=== PATIENT | male | born 1945 | race Caucasian/White ===

== ENCOUNTER 2021-09-20 00:01 | Inpatient (IN) ==
[2021-09-20] MEDS ORDERED: fentaNYL citrate 100 MCG/2 ML VIAL ONE (00:19)
[2021-09-20] MEDS ORDERED: MIDAZOLAM HCL 1 MG/ML 2ML VIAL ONE ×2 (00:19→00:51)
[2021-09-20] MEDS ORDERED: niCARdipine HCL INJ 2.5 MG/ML 10 ML AMP ONE (00:19)
[2021-09-20] MEDS ORDERED: HEPARIN (PORCINE) 1000 UNIT/ML 10 ML (CATH LAB USE ONLY) ONE (00:19)
[2021-09-20] MEDS ORDERED: NITROGLYCERIN/D5W 100MCG/ML 20ML SYR ONE (00:20)
[2021-09-20] MEDS ORDERED: LIDOCAINE 1% LOCAL 20 ML VIAL ONE (00:27)
[2021-09-20 00:28] LABS: Hematocrit (blood only) 45.7 % (42-52); Hemoglobin 14.6 g/dL (14.0-18.0); Mean Corpuscular Hemoglobin 30.2 pg (25-34); Mean Corpuscular Hgb Conc 31.9 g/dL (32-36); Mean Corpuscular Volume 94.6 fL (80-100); Mean Platelet Volume 10.5 fL (7.4-10.4); Platelet Count 322 K/uL (130-400); RDW Coefficient of Variation 13.2 % (11.5-14.5); RDW Standard Deviation 45.6 fL (36.4-46.3); Red Blood Count 4.83 M/uL (4.7-6.1)
[2021-09-20] MEDS ORDERED: SODIUM CHLORIDE 0.9% 1000ML 1,000 ML IV SCH (00:30)
[2021-09-20] MEDS ORDERED: SODIUM BICARB 8.4% INJ 50 MEQ/50 ML SYR IV STA ×2 (00:30)
[2021-09-20] MEDS ORDERED: SODIUM BICARBONATE 8.4% INJ 50 MEQ/50 ML VIAL ONE (00:31)
[2021-09-20 00:45] LABS: ALC (manual) 4.48 K/uL (1.2-3.4); ANC (manual) 5.45 K/uL (1.4-6.5); Basophils # (manual) 0.29 K/uL (0-0.2); Basophils % (manual) 2.6 %; Eosinophils # (manual) 0.29 K/uL (0-0.5); Eosinophils % (manual) 2.6 %; Lymphocytes # (manual) 4.48 K/uL (1.2-3.4); Lymphocytes % (manual) 40.4 %; Metamyelocytes % (manual) 0.9 %; Monocytes # (manual) 0.29 K/uL (0.11-0.59); Monocytes % (manual) 2.6 %; Myelocytes % (manual) 1.8 %; Neutrophils # (manual) 5.45 K/uL (1.4-6.5); Neutrophils % (manual) 49.1 %; RBC Morphology Unremarkable
[2021-09-20] MEDS ORDERED: EPTIFIBATIDE 2 MG/ML 10 ML VIAL (CATH LAB USE ONLY) IV ONE (00:55)
[2021-09-20] MEDS ORDERED: EPTIFIBATIDE 0.75 MG/ML 75MG VIAL (CATH LAB USE ONLY) ONE (00:55)
[2021-09-20] MEDS ORDERED: AMIODARONE HCL INJ 50 MG/ML 3 ML VIAL (CATH LAB USE ONLY) ONE (00:58)
[2021-09-20] MEDS ORDERED: AMIODARONE 360MG / 200ML D5W (CATH LAB USE ONLY) ONE (01:00)
[2021-09-20] MEDS ORDERED: PHENYLEPHRINE HCL INJ 10 MG/ML VIAL (CATH LAB USE ONLY) ONE ×2 (01:04→01:22)
[2021-09-20] MEDS ORDERED: NOREPINEPHRINE BITARTRATE 1 MG/ML 4 ML VIAL (CATH LAB USE ONLY) ONE (01:04)
[2021-09-20 01:20] LABS: Alanine Aminotransferase 39 U/L (7-52); Albumin Globulin Ratio 1.7 (0.9-2); Albumin Level 3.7 gm/dl (3.4-5.0); Alkaline Phosphatase 92 U/L (34-104); Anion Gap 19 (3-11); Aspartate Aminotransferase 40 U/L (13-39); BUN Creatinine Ratio 8.6 (10-20); Bilirubin,Total 0.3 mg/dl (0.2-1.0); Blood Urea Nitrogen 13 mg/dl (6-23); Calcium 8.3 mg/dl (8.5-10.1); Carbon Dioxide 17 mmol/L (21-32); Chloride 104 mmol/L (98-107); Est GFR (African American) 51.9 ml/min; Est GFR (Non-African American) 44.8 ml/min; Globulin 2.2 gm/dl (2.5-4.0); Glucose 286 mg/dl (70-99(Fasting)); Magnesium 2.4 mg/dl (1.7-2.4); Sodium 140 mmol/L (136-145); Total Protein 5.9 gm/dl (6.0-8.3); Troponin I High Sensitivity 337.8 pg/ml (0-20)
[2021-09-20] MEDS ORDERED: ADENOSINE IV SOLN 3 MG/ML 2 ML VIAL IV ONE (01:45)
[2021-09-20] MEDS ORDERED: TICAGRELOR 90 MG TAB ONE (02:37)
[2021-09-20] MEDS ORDERED: EPTIFIBATIDE BOLUS/DRIP IV STA (02:48)
--- NOTE | 2021-09-20 03:13 | Emergency Department Note ---
History of Present Illness General Chief complaint: Heart Alert Stated complaint: POST CARDIAC ARREST, ROSC Time Seen by Provider: 09/20/21 00:16 Source: EMS Mode of arrival: EMS Limitations: altered mental status History of Present Illness Provider complaint: cardiac arrest This is a 75-year-old male brought in by EMS as a cardiac arrest with ROSC. Per EMS report, family stated patient went downstairs, and when he did not immediately return his went down to check on him and found him with agonal respirations and not responding. She immediately called 911. Police were on scene very quickly and started CPR and attached in the ED. 2 shocks were given by the ED. Upon EMS arrival, ACLS continued, patient intubated. Patient did have ROSC after additional medication including epi and amiodarone for what appeared to be both VT and V. fib on the monitor with los of pulses again. EMS did defibrillate him again, and he was given additional medications with subsequent ROSC. Arrival here Vignesh device in place, patient being bagged through an ET tube at the head of the bed, patient appeared to be normal sinus/sinus tachycardia and did have palpable pulses. Prior to arrival, EMS had called for command and sent EKGs for review. These were concerning for likely STEMI. On-call dye house hand was contacted by myself while EMS was in route and a heart alert was called given we had a shockable rhythm with ROSC. Pt seen during a time of high acuity and national emergency pandemic while wearing PPE. Home Medications Medication Instructions Recorded Confirmed Type Unobtainable 09/20/21 09/20/21 History Allergies Allergy/AdvReac Type Severity Reaction Status Date / Time No Known Allergies Allergy Unverified 09/20/21 13:26 Past Med/Surg History Social History Smoking Status: Unknown if ever smoked Hx Alcohol Use: No Hx Substance Use: No Preferred Language: Tajik Communication Ability: Unable Narrow Gauge Engineer Required: No Beliefs That Will Affect Care: None marital status: Current Living Situation: Spouse Current Living Situation Comment: [place] WITH SPOUSE Review of Systems A total of 10 systems reviewed and were otherwise negative All systems reviewed & are unremarkable except as noted in HPI & below Physical Exam Vital Signs Vital Signs - 24 hr 09/20/21 00:10 09/20/21 00:17 Pulse Rate 114 H 113 H Pulse Rhythm Irregular Pulse Strength Normal Respiratory Rate 28 H Respiratory Effort / Characteristics Mechanically Ventilated Blood Pressure 106/76 Blood Pressure Mean 86 Blood Pressure Position Lying Pulse Oximetry 99 98 Oxygen Delivery Method Mechanical Vent Fraction of Inspired Oxygen 100 Sepsis Recent Fever Within 48 Hours No Sepsis New/Unexplained Change in Mental Status No Sepsis Action Taken by Nursing No Action Required End-Tidal CO2 22 GENERAL: unwell appearing, being bagged by EMS HEAD: nc/at, no smith signs, no raccoon eyes EYE EXAM: normal conjunctiva, nipples midposition but reactive bilaterally OROPHARYNX: Mucous membranes dry, ET tube in place, no obvious blood or secretions in the oropharynx NECK: supple, no adenopathy LUNGS: Clear to auscultation. Normal chest wall mechanics, no w/r/r HEART: no murmurs, S1 normal and S2 normal, Vignesh device in place over the chest ABDOMEN: abdomen soft, non-tender, normo-active bowel sounds, no masses, no rebound or guarding. BACK: Back is symmetrical on inspection and there is no deformity, no midline tenderness, no CVA tenderness. SKIN: no rashes and no bruising UPPER EXTREMITIES: upper extremities are grossly normal. nml pulses b/l. LOWER EXTREMITIES: No pitting edema. nml pulses b/l. NEURO EXAM: GCS 3 Course Administered Medications Discontinued Medications Adenosine (Adenosine Iv Soln 3 Mg/Ml 2 Ml Vial) Confirm Administered Dose 6 mg IV .Splore ONE Stop: 09/20/21 01:46 Last Admin: 09/20/21 04:04 Dose: Not Given Documented by: [id number] Amiodarone HCl/Dextrose (Amiodarone 360mg / 200ml D5w (Processor Grain Use Only)) Confirm Administered Dose 360 mg .ROUTE .Splore ONE Stop: 09/20/21 01:01 Last Admin: 09/20/21 02:26 Dose: 360 mg Documented by: [id number] Amiodarone HCl/Dextrose (Amiodarone 360mg / 200ml D5w) Confirm Administered Dose 360 mg IV .Splore ONE Stop: 09/20/21 05:10 Last Admin: 09/20/21 05:49 Dose: Not Given Documented by: [id number] Amiodarone HCl (Amiodarone Hcl Inj 50 Mg/Ml 3 Ml Vial (Processor Grain Use Only)) Confirm Administered Dose 150 mg .ROUTE .STK-MED ONE Stop: 09/20/21 00:59 Last Admin: 09/20/21 04:04 Dose: Not Given Documented by: [id number] Aspirin (Aspirin 81 Mg Ectab) 81 mg PO [facility] Stop: 10/20/21 08:59 Last Admin: 09/20/21 07:56 Dose: Not Given Documented by: [id number] Aspirin (Aspirin 81 Mg Chew) 81 mg PO DAILY [facility] Stop: 10/20/21 12:59 Last Admin: 09/21/21 07:53 Dose: 81 mg Documented by: [id number] Admin: 09/20/21 12:24 Dose: 81 mg Documented by: [id number] Atorvastatin Calcium (Atorvastatin 40 Mg Tab) 40 mg PO [facility] Stop: 10/20/21 08:59 Last Admin: 09/21/21 08:11 Dose: 40 mg Documented by: [id number] Admin: 09/20/21 10:15 Dose: Not Given Documented by: [id number] Epinephrine HCl (Epinephrine Inj 1 Mg/Ml Amp) Confirm Administered Dose 4 mg .ROUTE .STK-MED ONE Stop: 09/21/21 17:07 Last Admin: 09/21/21 18:29 Dose: Not Given Documented by: [id number] Eptifibatide (Eptifibatide 2 Mg/Ml 10 Ml Vial (Processor Grain Use Only)) Confirm Administered Dose 40 mg IV .STK-MED ONE Stop: 09/20/21 00:56 Last Admin: 09/20/21 02:25 Dose: 14.6 ml Documented by: [id number] Eptifibatide (Eptifibatide 0.75 Mg/Ml 75mg Vial (Processor Grain Use Only)) Confirm Administered Dose 75 mg .ROUTE .STK-MED ONE Stop: 09/20/21 00:56 Last Admin: 09/20/21 02:26 Dose: 75 mg Documented by: [id number] Fentanyl Citrate (Fentanyl Citrate 100 Mcg/2 Ml Vial) Confirm Administered Dose 100 mcg .ROUTE .STK-MED ONE Stop: 09/20/21 00:20 Last Increment: 09/20/21 02:24 Dose: 75 mcg Documented by: [id number] Fentanyl Citrate (Fentanyl Bolus From Bag) 50 mcg IV Q60M PRN PRN Reason: Pain or Agitation Stop: 10/04/21 03:30 Last Admin: 09/20/21 12:49 Dose: 50 mcg Documented by: [id number] Fentanyl Citrate (Fentanyl Citrate 2,500 Mcg/250 Ml Bag) Confirm Administered Dose 2,500 mcg IV .STK-MED ONE Stop: 09/20/21 03:34 Last Admin: 09/20/21 04:06 Dose: 50 mcg Documented by: [id number] Cosigned by: [id number] Heparin Sodium (Porcine) (Heparin (Porcine) 1000 Unit/Ml 10 Ml (Processor Grain Use Only)) Confirm Administered Dose 10,000 units .ROUTE .STK-MED ONE Stop: 09/20/21 00:20 Last Admin: 09/20/21 02:24 Dose: 7,500 units Documented by: [id number] Heparin Sodium (Porcine) (Heparin Sod 5,000 Unit/0.5 Ml Vial) 5,000 units SQ Q8 [facility] Stop: 10/21/21 13:59 Last Admin: 09/21/21 14:28 Dose: 5,000 units Documented by: [id number] Heparin Sodium (Porcine) (Heparin (Porcine) 1000 Unit/Ml 10 Ml (Processor Grain Use Only)) Confirm Administered Dose 10,000 units .ROUTE .ST-MED ONE Stop: 09/21/21 16:35 Last Admin: 09/21/21 18:28 Dose: 10,000 units Documented by: [id number] Heparin Sodium (Porcine) (Heparin (Porcine) 1000 Unit/Ml 10 Ml (Processor Grain Use Only)) Confirm Administered Dose 10,000 units .ROUTE .STK-MED ONE Stop: 09/21/21 17:50 Last Admin: 09/21/21 18:30 Dose: 5,000 units Documented by: [id number] Heparin Sodium/Sodium Chloride (Heparin In Nss Infusion 1000 Unit/500 Ml (2 U/Ml) Bag) Confirm Administered Dose 3,000 units IV .STK-MED ONE Stop: 09/20/21 00:21 Last Admin: 09/20/21 04:03 Dose: Not Given Documented by: [id number] Sodium Chloride (Nss 1000ml) 1,000 mls @ 125 mls/hr IV .Q8H [facility] Stop: 10/20/21 00:29 Last Admin: 09/20/21 04:10 Dose: Not Given Documented by: [id number] Phenylephrine HCl 20 mg/ (Dextrose) 502 mls @ 60.24 mls/hr IV .Q8H20M [facility]; Protocol Stop: 10/20/21 02:00 Last Infusion: 09/20/21 11:39 Dose: 0 mcg/kg/min, 0 mls/hr Documented by: [id number] Infusion: 09/20/21 08:29 Dose: 2 mcg/kg/min, 241 mls/hr Documented by: [id number] Cosigned by: [id number] Admin: 09/20/21 08:29 Dose: 2 mcg/kg/min, 241 mls/hr Documented by: [id number] Cosigned by: [id number] Infusion: 09/20/21 07:13 Dose: 2 mcg/kg/min, 241 mls/hr Documented by: [id number] Cosigned by: [id number] Admin: 09/20/21 06:31 Dose: 2 mcg/kg/min, 241 mls/hr Documented by: [id number] Cosigned by: [id number] Infusion: 09/20/21 06:10 Dose: 2 mcg/kg/min, 241 mls/hr Documented by: [id number] Cosigned by: [id number] Admin: 09/20/21 04:05 Dose: 2 mcg/kg/min, 241 mls/hr Documented by: [id number] Cosigned by: [id number] Pantoprazole Sodium 40 mg/ (Syringe) 10 mls @ 5 mls/min IV DAILY@1100 [facility] Stop: 10/20/21 10:59 Last Admin: 09/21/21 14:28 Dose: 5 mls/min Documented by: [id number] Admin: 09/20/21 12:24 Dose: 5 mls/min Documented by: [id number] Norepinephrine Bitartrate (Levophed/D5w) 8 mg in 508 mls @ 152.4 mls/hr IV .Q3H20M [facility]; Protocol Stop: 10/20/21 03:14 Last Admin: 09/20/21 11:37 Dose: Not Given Documented by: [id number] Titration: 09/20/21 10:14 Dose: 0 mcg/kg/min, 0 mls/hr Documented by: [id number] Titration: 09/20/21 09:43 Dose: 0.5 mcg/kg/min, 152.4 mls/hr Documented by: [id number] Admin: 09/20/21 08:46 Dose: 0.6 mcg/kg/min, 182.9 mls/hr Documented by: [id number] Cosigned by: [id number] Titration: 09/20/21 08:42 Dose: 0.6 mcg/kg/min, 182.9 mls/hr Documented by: [id number] Cosigned by: [id number] Titration: 09/20/21 07:55 Dose: 0.6 mcg/kg/min, 182.9 mls/hr Documented by: [id number] Titration: 09/20/21 07:12 Dose: 0.5 mcg/kg/min, 152.4 mls/hr Documented by: [id number] Cosigned by: [id number] Titration: 09/20/21 05:26 Dose: 0.4 mcg/kg/min, 121.9 mls/hr Documented by: [id number] Admin: 09/20/21 04:05 Dose: 0.1 mcg/kg/min, 30.5 mls/hr Documented by: [id number] Cosigned by: [id number] Parenteral Electrolytes (Plasma-Lyte A) 1,000 mls @ 125 mls/hr IV .Q8H [facility] Stop: 10/20/21 03:29 Last Infusion: 09/20/21 08:33 Dose: 0 mls/hr Documented by: [id number] Infusion: 09/20/21 06:36 Dose: 0 mls/hr Documented by: [id number] Admin: 09/20/21 04:06 Dose: 125 mls/hr Documented by: [id number] Midazolam HCl (Versed) 125 mg in 250 mls @ 0 mls/hr IV .Q0M [facility]; Protocol Stop: 10/20/21 03:44 Last Titration: 09/21/21 11:48 Dose: 0 mg/hr, 0 mls/hr Documented by: [id number] Cosigned by: [id number] Titration: 09/21/21 09:12 Dose: 0 mg/hr, 0 mls/hr Documented by: [id number] Cosigned by: [id number] Titration: 09/21/21 07:12 Dose: 2 mg/hr, 4 mls/hr Documented by: [id number] Cosigned by: [id number] Titration: 09/20/21 19:07 Dose: 2 mg/hr, 4 mls/hr Documented by: [id number] Cosigned by: [id number] Titration: 09/20/21 09:45 Dose: 2 mg/hr, 4 mls/hr Documented by: [id number] Cosigned by: [id number] Titration: 09/20/21 07:59 Dose: 4 mg/hr, 8 mls/hr Documented by: [id number] Cosigned by: [id number] Titration: 09/20/21 07:14 Dose: 2 mg/hr, 4 mls/hr Documented by: [id number] Cosigned by: [id number] Admin: 09/20/21 04:08 Dose: 2 mg/hr, 4 mls/hr Documented by: [id number] Cosigned by: [id number] Fentanyl Citrate (Fentanyl Citrate) 2,500 mcg in 250 mls @ 0 mls/hr IV .Q0M [facility]; Protocol Stop: 10/04/21 03:44 Last Titration: 09/21/21 11:47 Dose: 0 mcg/hr, 0 mls/hr Documented by: [id number] Cosigned by: [id number] Titration: 09/21/21 09:11 Dose: 0 mcg/hr, 0 mls/hr Documented by: [id number] Cosigned by: [id number] Titration: 09/21/21 07:12 Dose: 100 mcg/hr, 10 mls/hr Documented by: [id number] Cosigned by: [id number] Admin: 09/21/21 00:23 Dose: 100 mcg/hr, 10 mls/hr Documented by: [id number] Cosigned by: [id number] Titration: 09/21/21 00:23 Dose: 100 mcg/hr, 10 mls/hr Documented by: [id number] Cosigned by: [id number] Titration: 09/20/21 19:07 Dose: 100 mcg/hr, 10 mls/hr Documented by: [id number] Cosigned by: [id number] Titration: 09/20/21 07:13 Dose: 100 mcg/hr, 10 mls/hr Documented by: [id number] Cosigned by: [id number] Titration: 09/20/21 05:26 Dose: 100 mcg/hr, 10 mls/hr Documented by: [id number] Cosigned by: [id number] Admin: 09/20/21 04:08 Dose: 50 mcg/hr, 5 mls/hr Documented by: [id number] Cosigned by: [id number] Eptifibatide (Integrilin) 75 mg in 100 mls @ 12.256 mls/hr IV .Q8H10M [facility]; Protocol Stop: 09/20/21 10:30 Last Infusion: 09/20/21 10:20 Dose: 0 mcg/kg/min, 0 mls/hr Documented by: [id number] Cosigned by: [id number] Infusion: 09/20/21 07:14 Dose: 2.01 mcg/kg/min, 12.3 mls/hr Documented by: [id number] Cosigned by: [id number] Admin: 09/20/21 05:49 Dose: 2 mcg/kg/min, 12.3 mls/hr Documented by: [id number] Cosigned by: [id number] Insulin Human Regular 250 (units/ Sodium Chloride) 250 mls @ 2 mls/hr IV .Q24H [facility]; Protocol Stop: 10/20/21 05:14 Last Titration: 09/21/21 11:15 Dose: 0 units/hr, 0 mls/hr Documented by: [id number] Cosigned by: [id number] Titration: 09/21/21 07:12 Dose: 2 units/hr, 2 mls/hr Documented by: [id number] Cosigned by: [id number] Admin: 09/21/21 06:13 Dose: 2 units/hr, 2 mls/hr Documented by: [id number] Cosigned by: [id number] Titration: 09/21/21 06:13 Dose: 2 units/hr, 2 mls/hr Documented by: [id number] Cosigned by: [id number] Titration: 09/21/21 05:00 Dose: 2 units/hr, 2 mls/hr Documented by: [id number] Cosigned by: [id number] Titration: 09/21/21 04:00 Dose: 2 units/hr, 2 mls/hr Documented by: [id number] Cosigned by: [id number] Titration: 09/21/21 02:58 Dose: 2 units/hr, 2 mls/hr Documented by: [id number] Cosigned by: [id number] Titration: 09/21/21 01:45 Dose: 0 units/hr, 0 mls/hr Documented by: [id number] Cosigned by: [id number] Titration: 09/21/21 01:10 Dose: 0 units/hr, 0 mls/hr Documented by: [id number] Cosigned by: [id number] Titration: 09/20/21 23:59 Dose: 2.6 units/hr, 2.6 mls/hr Documented by: [id number] Cosigned by: [id number] Titration: 09/20/21 23:00 Dose: 3.3 units/hr, 3.3 mls/hr Documented by: [id number] Cosigned by: [id number] Titration: 09/20/21 22:11 Dose: 3.3 units/hr, 3.3 mls/hr Documented by: [id number] Cosigned by: [id number] Titration: 09/20/21 21:12 Dose: 4.1 units/hr, 4.1 mls/hr Documented by: [id number] Cosigned by: [id number] Titration: 09/20/21 20:12 Dose: 3.4 units/hr, 3.4 mls/hr Documented by: [id number] Cosigned by: [id number] Titration: 09/20/21 19:07 Dose: 0 units/hr, 0 mls/hr Documented by: [id number] Cosigned by: [id number] Titration: 09/20/21 16:00 Dose: 0 units/hr, 0 mls/hr Documented by: [id number] Cosigned by: [id number] Titration: 09/20/21 15:00 Dose: 5.7 units/hr, 5.7 mls/hr Documented by: [id number] Cosigned by: [id number] Titration: 09/20/21 14:02 Dose: 9.5 units/hr, 9.5 mls/hr Documented by: [id number] Cosigned by: [id number] Titration: 09/20/21 13:00 Dose: 9.5 units/hr, 9.5 mls/hr Documented by: [id number] Cosigned by: [id number] Titration: 09/20/21 12:00 Dose: 9.5 units/hr, 9.5 mls/hr Documented by: [id number] Cosigned by: [id number] Titration: 09/20/21 11:00 Dose: 9.5 units/hr, 9.5 mls/hr Documented by: [id number] Cosigned by: [id number] Titration: 09/20/21 10:00 Dose: 7.9 units/hr, 7.9 mls/hr Documented by: [id number] Cosigned by: [id number] Titration: 09/20/21 09:00 Dose: 6.6 units/hr, 6.6 mls/hr Documented by: [id number] Cosigned by: [id number] Titration: 09/20/21 07:57 Dose: 4.7 units/hr, 4.7 mls/hr Documented by: [id number] Cosigned by: [id number] Titration: 09/20/21 07:13 Dose: 3.9 units/hr, 3.9 mls/hr Documented by: [id number] Cosigned by: [id number] Titration: 09/20/21 06:45 Dose: 3.9 units/hr, 3.9 mls/hr Documented by: [id number] Cosigned by: [id number] Admin: 09/20/21 05:49 Dose: 2.8 units/hr, 2.8 mls/hr Documented by: [id number] Cosigned by: [id number] Amiodarone HCl/Dextrose (Nexterone / D5w) 360 mg in 200 mls @ 33.333 mls/hr IV ONE ONE; Protocol Stop: 09/20/21 11:07 Last Infusion: 09/20/21 11:38 Dose: 0 mg/min, 0 mls/hr Documented by: [id number] Cosigned by: [id number] Admin: 09/20/21 08:33 Dose: 1 mg/min, 33.3 mls/hr Documented by: [id number] Cosigned by: [id number] Calcium Chloride 1,000 mg/ (Dextrose) 60 mls @ 240 mls/hr IV 0530 ONE Stop: 09/20/21 05:44 Last Infusion: 09/20/21 06:31 Dose: 0 mls/hr Documented by: [id number] Admin: 09/20/21 05:50 Dose: 240 mls/hr Documented by: [id number] Potassium Acetate () 20 meq in 110 mls @ 55 mls/hr IV Q2H [facility] Stop: 09/20/21 09:44 Last Infusion: 09/20/21 11:39 Dose: 0 mls/hr Documented by: [id number] Admin: 09/20/21 07:59 Dose: 55 mls/hr Documented by: [id number] Infusion: 09/20/21 07:55 Dose: 0 mls/hr Documented by: [id number] Admin: 09/20/21 05:50 Dose: 55 mls/hr Documented by: [id number] Insulin Human Regular 3 units/ (Syringe) 3 mls @ 0 mls/min IV 0545 ONE Stop: 09/20/21 05:46 Last Admin: 09/20/21 05:50 Dose: 1 mls/min Documented by: [id number] Cosigned by: [id number] Sodium Bicarbonate 150 meq/Potassium Acetate 20 meq/Sterile Water 1,160 mls @ 125 mls/hr IV .Q9H17M [facility] Stop: 10/20/21 05:29 Last Admin: 09/20/21 16:36 Dose: Not Given Documented by: [id number] Infusion: 09/20/21 15:14 Dose: 0 mls/hr Documented by: [id number] Admin: 09/20/21 06:19 Dose: 125 mls/hr Documented by: [id number] Amiodarone HCl/Dextrose (Nexterone / D5w) 360 mg in 200 mls @ 16.667 mls/hr IV .Q12H [facility] Stop: 10/20/21 06:29 Last Infusion: 09/21/21 11:47 Dose: 0 mg/min, 0 mls/hr Documented by: [id number] Cosigned by: [id number] Infusion: 09/21/21 07:12 Dose: 0.5 mg/min, 16.7 mls/hr Documented by: [id number] Cosigned by: [id number] Admin: 09/21/21 06:14 Dose: 0.5 mg/min, 16.7 mls/hr Documented by: [id number] Cosigned by: [id number] Infusion: 09/21/21 06:14 Dose: 0.5 mg/min, 16.7 mls/hr Documented by: [id number] Cosigned by: [id number] Admin: 09/20/21 18:15 Dose: 0.5 mg/min, 16.7 mls/hr Documented by: [id number] Cosigned by: [id number] Infusion: 09/20/21 18:15 Dose: 0.5 mg/min, 16.7 mls/hr Documented by: [id number] Cosigned by: [id number] Admin: 09/20/21 06:31 Dose: 0.5 mg/min, 16.7 mls/hr Documented by: [id number] Cosigned by: [id number] Potassium Acetate 40 meq/ (Sodium Chloride) 120 mls @ 80 mls/hr IV ONE ONE Stop: 09/20/21 11:29 Last Infusion: 09/20/21 15:27 Dose: 0 mls/hr Documented by: [id number] Admin: 09/20/21 10:15 Dose: 80 mls/hr Documented by: [id number] Phenylephrine HCl 100 mg/ (Sodium Chloride) 250 mls @ 69.6 mls/hr IV .Q3H36M [facility]; Protocol Stop: 10/20/21 02:00 Last Infusion: 09/21/21 21:06 Dose: 5.8 mcg/kg/min, 69.6 mls/hr Documented by: [id number] Admin: 09/21/21 20:40 Dose: 6 mcg/kg/min, 72 mls/hr Documented by: [id number] Cosigned by: [id number] Infusion: 09/21/21 20:40 Dose: 5 mcg/kg/min, 60 mls/hr Documented by: [id number] Cosigned by: [id number] Infusion: 09/21/21 20:23 Dose: 5 mcg/kg/min, 60 mls/hr Documented by: [id number] Infusion: 09/21/21 20:10 Dose: 1 mcg/kg/min, 12 mls/hr Documented by: [id number] Infusion: 09/21/21 19:50 Dose: 0 mcg/kg/min, 0 mls/hr Documented by: [id number] Infusion: 09/21/21 19:37 Dose: 1 mcg/kg/min, 12 mls/hr Documented by: [id number] Infusion: 09/21/21 19:30 Dose: 3 mcg/kg/min, 36 mls/hr Documented by: [id number] Cosigned by: [id number] Admin: 09/21/21 16:52 Dose: 7 mcg/kg/min, 84 mls/hr Documented by: [id number] Cosigned by: [id number] Infusion: 09/21/21 16:14 Dose: 7 mcg/kg/min, 84 mls/hr Documented by: [id number] Cosigned by: [id number] Admin: 09/21/21 13:15 Dose: 7 mcg/kg/min, 84 mls/hr Documented by: [id number] Cosigned by: [id number] Infusion: 09/21/21 13:05 Dose: 6 mcg/kg/min, 72 mls/hr Documented by: [id number] Cosigned by: [id number] Infusion: 09/21/21 11:45 Dose: 6 mcg/kg/min, 72 mls/hr Documented by: [id number] Admin: 09/21/21 09:11 Dose: 5 mcg/kg/min, 60 mls/hr Documented by: [id number] Cosigned by: [id number] Infusion: 09/21/21 08:56 Dose: 5 mcg/kg/min, 60 mls/hr Documented by: [id number] Cosigned by: [id number] Infusion: 09/21/21 07:51 Dose: 5 mcg/kg/min, 60 mls/hr Documented by: [id number] Infusion: 09/21/21 07:12 Dose: 6 mcg/kg/min, 72 mls/hr Documented by: [id number] Cosigned by: [id number] Admin: 09/21/21 06:38 Dose: Not Given Documented by: [id number] Admin: 09/21/21 05:16 Dose: 6 mcg/kg/min, 72 mls/hr Documented by: [id number] Cosigned by: [id number] Infusion: 09/21/21 03:58 Dose: 6 mcg/kg/min, 72 mls/hr Documented by: [id number] Cosigned by: [id number] Admin: 09/21/21 03:39 Dose: Not Given Documented by: [id number] Admin: 09/21/21 03:39 Dose: Not Given Documented by: [id number] Admin: 09/21/21 03:38 Dose: Not Given Documented by: [id number] Infusion: 09/21/21 02:54 Dose: 6 mcg/kg/min, 72 mls/hr Documented by: [id number] Admin: 09/21/21 02:15 Dose: Not Given Documented by: [id number] Admin: 09/21/21 02:15 Dose: Not Given Documented by: [id number] Admin: 09/21/21 02:15 Dose: Not Given Documented by: [id number] Infusion: 09/21/21 02:09 Dose: 5.8 mcg/kg/min, 69.6 mls/hr Documented by: [id number] Admin: 09/21/21 01:20 Dose: Not Given Documented by: [id number] Admin: 09/21/21 01:20 Dose: Not Given Documented by: [id number] Admin: 09/21/21 01:20 Dose: Not Given Documented by: [id number] Infusion: 09/21/21 01:18 Dose: 5.6 mcg/kg/min, 67.2 mls/hr Documented by: [id number] Infusion: 09/21/21 00:45 Dose: 5.8 mcg/kg/min, 69.6 mls/hr Documented by: [id number] Admin: 09/21/21 00:23 Dose: 6 mcg/kg/min, 72 mls/hr Documented by: [id number] Cosigned by: [id number] Infusion: 09/21/21 00:23 Dose: 6 mcg/kg/min, 72 mls/hr Documented by: [id number] Cosigned by: [id number] Admin: 09/20/21 22:12 Dose: 6 mcg/kg/min, 72 mls/hr Documented by: [id number] Cosigned by: [id number] Infusion: 09/20/21 21:03 Dose: 6 mcg/kg/min, 72 mls/hr Documented by: [id number] Cosigned by: [id number] Infusion: 09/20/21 19:07 Dose: 6 mcg/kg/min, 72 mls/hr Documented by: [id number] Cosigned by: [id number] Admin: 09/20/21 17:34 Dose: 6 mcg/kg/min, 72 mls/hr Documented by: [id number] Cosigned by: [id number] Infusion: 09/20/21 17:30 Dose: 6 mcg/kg/min, 72 mls/hr Documented by: [id number] Cosigned by: [id number] Admin: 09/20/21 14:01 Dose: 6 mcg/kg/min, 72 mls/hr Documented by: [id number] Cosigned by: [id number] Infusion: 09/20/21 14:01 Dose: 6 mcg/kg/min, 72 mls/hr Documented by: [id number] Cosigned by: [id number] Infusion: 09/20/21 11:00 Dose: 6 mcg/kg/min, 72 mls/hr Documented by: [id number] Admin: 09/20/21 10:46 Dose: 2 mcg/kg/min, 24 mls/hr Documented by: [id number] Cosigned by: [id number] Norepinephrine Bitartrate (Levophed/D5w) 32 mg in 250 mls @ 26.25 mls/hr IV .Q9H32M [facility]; Protocol Stop: 10/20/21 03:14 Last Titration: 09/21/21 19:30 Dose: 0.7 mcg/kg/min, 26.3 mls/hr Documented by: [id number] Cosigned by: [id number] Titration: 09/21/21 19:05 Dose: 0.7 mcg/kg/min, 26.3 mls/hr Documented by: [id number] Cosigned by: [id number] Admin: 09/21/21 19:05 Dose: 0.7 mcg/kg/min, 26.3 mls/hr Documented by: [id number] Cosigned by: [id number] Titration: 09/21/21 13:15 Dose: 0.7 mcg/kg/min, 26.3 mls/hr Documented by: [id number] Titration: 09/21/21 07:12 Dose: 0.3 mcg/kg/min, 11.3 mls/hr Documented by: [id number] Cosigned by: [id number] Admin: 09/21/21 05:16 Dose: 0.3 mcg/kg/min, 11.3 mls/hr Documented by: [id number] Cosigned by: [id number] Titration: 09/21/21 05:16 Dose: 0.3 mcg/kg/min, 11.3 mls/hr Documented by: [id number] Cosigned by: [id number] Titration: 09/20/21 19:07 Dose: 0.3 mcg/kg/min, 11.3 mls/hr Documented by: [id number] Cosigned by: [id number] Titration: 09/20/21 18:12 Dose: 0.3 mcg/kg/min, 11.3 mls/hr Documented by: [id number] Titration: 09/20/21 17:18 Dose: 0.25 mcg/kg/min, 9.4 mls/hr Documented by: [id number] Titration: 09/20/21 13:58 Dose: 0.3 mcg/kg/min, 11.3 mls/hr Documented by: [id number] Titration: 09/20/21 12:48 Dose: 0.2 mcg/kg/min, 7.5 mls/hr Documented by: [id number] Titration: 09/20/21 12:22 Dose: 0.4 mcg/kg/min, 15 mls/hr Documented by: [id number] Admin: 09/20/21 10:47 Dose: 0.6 mcg/kg/min, 22.5 mls/hr Documented by: [id number] Cosigned by: [id number] Vasopressin 20 units/ Sodium (Chloride) 101 mls @ 12.12 mls/hr IV .[id number] NICOLE Stop: 10/20/21 11:44 Last Admin: 09/21/21 20:10 Dose: 0.04 unit/min, 12.1 mls/hr Documented by: [id number] Cosigned by: [id number] Infusion: 09/21/21 20:06 Dose: 0.04 unit/min, 12.1 mls/hr Documented by: [id number] Cosigned by: [id number] Infusion: 09/21/21 19:30 Dose: 0.04 unit/min, 12.1 mls/hr Documented by: [id number] Cosigned by: [id number] Admin: 09/21/21 11:45 Dose: 0.04 unit/min, 12.1 mls/hr Documented by: [id number] Cosigned by: [id number] Infusion: 09/21/21 11:17 Dose: 0.04 unit/min, 12.1 mls/hr Documented by: [id number] Cosigned by: [id number] Infusion: 09/21/21 07:12 Dose: 0.04 unit/min, 12.1 mls/hr Documented by: [id number] Cosigned by: [id number] Admin: 09/21/21 02:56 Dose: 0.04 unit/min, 12.1 mls/hr Documented by: [id number] Cosigned by: [id number] Infusion: 09/21/21 02:56 Dose: 0.04 unit/min, 12.1 mls/hr Documented by: [id number] Cosigned by: [id number] Admin: 09/20/21 19:39 Dose: 0.04 unit/min, 12.1 mls/hr Documented by: [id number] Cosigned by: [id number] Admin: 09/20/21 15:26 Dose: Not Given Documented by: [id number] Magnesium Sulfate/Dextrose (Magnesium Sulfate / D5w) 1 gm in 100 mls @ 50 mls/hr IV Q2H NICOLE Stop: 09/20/21 21:14 Last Infusion: 09/20/21 22:52 Dose: 0 mls/hr Documented by: [id number] Admin: 09/20/21 20:52 Dose: 50 mls/hr Documented by: [id number] Infusion: 09/20/21 20:38 Dose: 50 mls/hr Documented by: [id number] Admin: 09/20/21 18:38 Dose: 50 mls/hr Documented by: [id number] Infusion: 09/20/21 18:38 Dose: 50 mls/hr Documented by: [id number] Admin: 09/20/21 16:42 Dose: 50 mls/hr Documented by: [id number] Calcium Gluconate 1,000 mg/ (Dextrose) 60 mls @ 240 mls/hr IV NOW ONE Stop: 09/20/21 15:29 Last Infusion: 09/20/21 16:37 Dose: 0 mls/hr Documented by: [id number] Admin: 09/20/21 16:08 Dose: 240 mls/hr Documented by: [id number] Potassium Acetate 20 meq/ (Sodium Chloride) 110 mls @ 55 mls/hr IV Q2H [facility], [facility] Stop: 09/20/21 19:44 Last Infusion: 09/20/21 20:14 Dose: 0 mls/hr Documented by: [id number] Admin: 09/20/21 18:14 Dose: 55 mls/hr Documented by: [id number] Infusion: 09/20/21 18:06 Dose: 55 mls/hr Documented by: [id number] Admin: 09/20/21 16:06 Dose: 55 mls/hr Documented by: [id number] Calcium Chloride 1,000 mg/ (Dextrose) 60 mls @ 240 mls/hr IV NOW STA Stop: 09/21/21 00:17 Last Infusion: 09/21/21 00:38 Dose: 0 mls/hr Documented by: [id number] Admin: 09/21/21 00:23 Dose: 240 mls/hr Documented by: [id number] Insulin Human Regular 250 (units/ Sodium Chloride) 250 mls @ 8.5 mls/hr IV .Q24H [facility] Stop: 10/21/21 17:14 Last Admin: 09/21/21 19:33 Dose: Not Given Documented by: [id number] Cosigned by: [id number] Insulin Human Regular 10 units (/ Syringe) 10 mls @ 30 mls/min IV NOW ONE Stop: 09/21/21 17:31 Last Admin: 09/21/21 18:30 Dose: 30 mls/min Documented by: [id number] Cosigned by: [id number] Dobutamine HCl/Dextrose (Dobutamine / D5w) 500 mg in 250 mls @ 12.75 mls/hr IV .[id number] [facility]; Protocol Stop: 10/21/21 19:29 Last Titration: 09/21/21 20:51 Dose: 0 mcg/kg/min, 0 mls/hr Documented by: [id number] Cosigned by: [id number] Admin: 09/21/21 20:00 Dose: 5 mcg/kg/min, 12.8 mls/hr Documented by: [id number] Cosigned by: [id number] Epinephrine HCl () 4 mg in 254 mls @ 6.477 mls/hr IV .Q24H [facility]; Protocol Stop: 10/21/21 20:29 Last Titration: 09/21/21 21:07 Dose: 0.05 mcg/kg/min, 16.2 mls/hr Documented by: [id number] Titration: 09/21/21 20:51 Dose: 0.04 mcg/kg/min, 13 mls/hr Documented by: [id number] Admin: 09/21/21 20:40 Dose: 0.02 mcg/kg/min, 6.5 mls/hr Documented by: [id number] Cosigned by: [id number] Calcium Chloride 1,000 mg/ (Dextrose) 60 mls @ 240 mls/hr IV NOW STA Stop: 09/21/21 20:34 Last Admin: 09/21/21 20:42 Dose: 240 mls/hr Documented by: [id number] Insulin Aspart (Insulin Aspart Per Unit) 0 units SC ACHS [facility] Stop: 10/20/21 07:29 Last Admin: 09/21/21 11:46 Dose: Not Given Documented by: [id number] Cosigned by: [id number] Admin: 09/21/21 07:51 Dose: Not Given Documented by: [id number] Cosigned by: [id number] Admin: 09/20/21 21:21 Dose: Not Given Documented by: [id number] Admin: 09/20/21 16:44 Dose: Not Given Documented by: [id number] Cosigned by: [id number] Admin: 09/20/21 10:48 Dose: Not Given Documented by: [id number] Cosigned by: [id number] Admin: 09/20/21 07:55 Dose: Not Given Documented by: [id number] Cosigned by: [id number] Insulin Aspart (Insulin Aspart Per Unit) 0 units SC Q4 [facility] Stop: 10/21/21 15:59 Last Admin: 09/21/21 16:58 Dose: Not Given Documented by: [id number] Cosigned by: [id number] Lidocaine HCl (Lidocaine 1% Local 20 Ml Vial) Confirm Administered Dose 20 ml .ROUTE .STK-MED ONE Stop: 09/20/21 00:28 Last Admin: 09/20/21 04:03 Dose: Not Given Documented by: [id number] Meperidine HCl (Meperidine Hcl 25 Mg/Ml Carp/Vial) 25 mg IV Q6H PRN PRN Reason: Shivering Stop: 10/04/21 16:16 Last Admin: 09/20/21 16:43 Dose: 25 mg Documented by: [id number] Midazolam HCl (Midazolam Hcl 1 Mg/Ml 2ml Vial) Confirm Administered Dose 2 mg .ROUTE .STK-MED ONE Stop: 09/20/21 00:20 Last Admin: 09/20/21 02:25 Dose: 2 mg Documented by: [id number] Midazolam HCl (Midazolam Hcl 1 Mg/Ml 2ml Vial) Confirm Administered Dose 2 mg .ROUTE .STK-MED ONE Stop: 09/20/21 00:52 Last Increment: 09/20/21 02:25 Dose: 1 mg Documented by: [id number] Midazolam HCl (Midazolam Bolus From Bag) 2 mg IV Q60M PRN PRN Reason: Sedation Stop: 10/20/21 03:30 Last Admin: 09/20/21 12:49 Dose: 2 mg Documented by: [id number] Midazolam HCl (Midazolam Hcl 125mg/250ml D5w) Confirm Administered Dose 125 mg .ROUTE .STK-MED ONE Stop: 09/20/21 03:34 Last Admin: 09/20/21 04:07 Dose: 2 mg Documented by: [id number] Cosigned by: [id number] Miscellaneous (Eptifibatide (Integrilin) Infusion Stop Order) 1 ea N/A 1030 ONE Stop: 09/20/21 10:31 Last Admin: 09/20/21 10:15 Dose: 1 ea Documented by: [id number] Nicardipine HCl (Nicardipine Hcl Inj 2.5 Mg/Ml 10 Ml Amp) Confirm Administered Dose 25 mg .ROUTE .STK-MED ONE Stop: 09/20/21 00:20 Last Admin: 09/20/21 04:02 Dose: Not Given Documented by: [id number] Nicardipine HCl (Nicardipine Hcl Inj 2.5 Mg/Ml 10 Ml Amp) Confirm Administered Dose 25 mg .ROUTE .STK-MED ONE Stop: 09/21/21 16:35 Last Admin: 09/21/21 18:29 Dose: Not Given Documented by: [id number] Nitroglycerin/Dextrose (Nitroglycerin/D5w 100mcg/Ml 20ml Syr) Confirm Administered Dose 2,000 mcg .ROUTE .STK-MED ONE Stop: 09/20/21 00:21 Last Admin: 09/20/21 04:03 Dose: Not Given Documented by: [id number] Nitroglycerin/Dextrose (Nitroglycerin/D5w 100mcg/Ml 20ml Syr) Confirm Administered Dose 2,000 mcg .ROUTE .STK-MED ONE Stop: 09/21/21 16:35 Last Admin: 09/21/21 18:29 Dose: Not Given Documented by: [id number] Norepinephrine Bitartrate (Norepinephrine Bitartrate 1 Mg/Ml 4 Ml Vial ([facility] Use Only)) Confirm Administered Dose 8 mg .ROUTE .STK-MED ONE Stop: 09/20/21 01:05 Last Admin: 09/20/21 02:26 Dose: 8 mg Documented by: [id number] Perflutren Lipid Microsphere (Perflutren Lipid Microsphere (Definity)) 2 ml IV ONCE ONE Stop: 09/20/21 09:17 Last Admin: 09/20/21 09:17 Dose: 2 ml Documented by: [id number] Phenylephrine HCl (Phenylephrine Hcl Inj 10 Mg/Ml Vial ([employer] Use Only)) Confirm Administered Dose 10 mg .ROUTE .STK-MED ONE Stop: 09/20/21 01:05 Last Admin: 09/20/21 04:04 Dose: Not Given Documented by: [id number] Phenylephrine HCl (Phenylephrine Hcl Inj 10 Mg/Ml Vial ([employer] Use Only)) Confirm Administered Dose 10 mg .ROUTE .STK-MED ONE Stop: 09/20/21 01:23 Last Admin: 09/20/21 04:04 Dose: Not Given Documented by: [id number] Sodium Bicarbonate (Sodium Bicarb 8.4% Inj 50 Meq/50 Ml Syr) 50 meq IV NOW STA Stop: 09/20/21 00:31 Last Admin: 09/20/21 04:03 Dose: Not Given Documented by: [id number] Sodium Bicarbonate (Sodium Bicarb 8.4% Inj 50 Meq/50 Ml Syr) 50 meq IV NOW STA Stop: 09/20/21 00:31 Last Admin: 09/20/21 04:03 Dose: Not Given Documented by: [id number] Sodium Bicarbonate (Sodium Bicarbonate 8.4% Inj 50 Meq/50 Ml Vial) Confirm Administered Dose 50 meq .ROUTE .STK-[facility] ONE Stop: 09/20/21 00:32 Last Admin: 09/20/21 04:03 Dose: Not Given Documented by: [id number] Sodium Bicarbonate (Sodium Bicarb 8.4% Inj 50 Meq/50 Ml Syr) Confirm Administered Dose 50 meq IV .STK-[facility] ONE Stop: 09/21/21 17:08 Last Admin: 09/21/21 18:29 Dose: 50 meq Documented by: [id number] Sodium Bicarbonate (Sodium Bicarb 8.4% Inj 50 Meq/50 Ml Syr) Confirm Administered Dose 50 meq IV .ST-[facility] ONE Stop: 09/21/21 17:13 Last Admin: 09/21/21 18:29 Dose: 50 meq Documented by: [id number] Sodium Bicarbonate (Sodium Bicarb 8.4% Inj 50 Meq/50 Ml Syr) 100 meq IV NOW STA Stop: 09/21/21 20:33 Last Admin: 09/21/21 21:00 Dose: 100 meq Documented by: [id number] Sodium Bicarbonate (Sodium Bicarb 8.4% Inj 50 Meq/50 Ml Syr) Confirm Administered Dose 100 meq IV .STMr. Number-[facility] ONE Stop: 09/21/21 20:36 Last Admin: 09/21/21 20:41 Dose: 100 meq Documented by: [id number] Ticagrelor (Ticagrelor 90 Mg Tab) Confirm Administered Dose 180 mg .ROUTE .ST- [facility] ONE Stop: 09/20/21 02:38 Last Admin: 09/20/21 04:05 Dose: Not Given Documented by: [id number] Ticagrelor (Ticagrelor 90 Mg Tab) 90 mg PO BID [facility] Stop: 10/20/21 11:44 Last Admin: 09/21/21 20:11 Dose: 90 mg Documented by: [id number] Admin: 09/21/21 07:52 Dose: 90 mg Documented by: [id number] Admin: 09/20/21 21:36 Dose: 90 mg Documented by: [id number] Admin: 09/20/21 12:48 Dose: 90 mg Documented by: [id number] Tranexamic Acid (Txa 10% Non-Iv Routes 100 Mg/Ml Vial) 500 mg NEB ONE ONE Stop: 09/20/21 04:24 Last Admin: 09/20/21 04:49 Dose: 500 mg Documented by: [id number] Critical Care Time Critical Care Time: Yes Total Critical Care Time: 42 Critical care of 42 min performed to assess and manage high likelihood of life- threatening cardiac arrest and STEMI, involving labs and imaging performed with assessment to evaluate cardiac arrest and STEMI diagnosis with frequent reassessment. This time includes bedside time, treatment discussions with patient/family/consultants, documentation time and excludes procedure time. Medical Decision Making Differential Diagnosis Cardiac ischemia, aortic dissection, pulmonary embolism, electrolyte abnormality, acidosis, tension pneumothorax, hypothermia, hypovolemia, intracranial event, cardiac tamponade, as well as other pathologies. Medical Records Attestation: I reviewed the patient's medical records. Home Medications Current Medication List: was personally reviewed by me Laboratory Data Attestation: I reviewed the patient's lab results. Result diagrams: 09/21/21 04:49 09/21/21 19:34 Lab Results 09/20/21 09/20/21 09/20/21 Range/Units 00:15 00:15 01:22 WBC 11.10 H (4.8-10.8) K/uL RBC 4.83 (4.7-6.1) M/uL Hgb 14.6 (14.0-18.0) g/dL POC Hgb 13.6 L (14.0-18.0) g/dl Hct 45.7 (42-52) % POC Hct 40 L (42-52) % MCV 94.6 (80-100) fL MCH 30.2 (25-34) pg MCHC 31.9 L (32-36) g/dL RDW Std Deviation 45.6 (36.4-46.3) fL RDW Coeff of Aaron 13.2 (11.5-14.5) % Plt Count 322 (130-400) K/uL MPV 10.5 H (7.4-10.4) fL Neutrophils % (Manual) 49.1 % Lymphocytes % (Manual) 40.4 % Monocytes % (Manual) 2.6 % Eosinophils % (Manual) 2.6 % Basophils % (Manual) 2.6 % Metamyelocytes % (Man) 0.9 % Myelocytes % (Man) 1.8 % Neutrophils # (Manual) 5.45 (1.4-6.5) K/uL Total Absolute Neuts 5.45 (1.4-6.5) K/uL Lymphocytes # (Manual) 4.48 H (1.2-3.4) K/uL Total Abs Lymphocytes 4.48 H (1.2-3.4) K/uL Monocytes # (Manual) 0.29 (0.11-0.59) K/uL Eosinophils # (Manual) 0.29 (0-0.5) K/uL Basophils # (Manual) 0.29 H (0-0.2) K/uL Metamyelocytes # (Man) 0.10 H (0-0) K/uL Myelocytes # (Manual) 0.20 H (0-0) K/uL RBC Morphology Unremarkable Activ Coag Time Kaolin (94-140) SECONDS POC pH 7.24 L (7.35-7.45) POC pCO2 58 H (35-46) mmHg POC pO2 47 L (80-95) mmHg POC HCO3 25 H (19-24) lester/L POC Total CO2 26 (24-31) mmol/L POC Base Excess -3.0 (-9-1.8) lester/L POC ABG O2 Sat 74.0 L (90-95) % POC Sodium 138 (135-144) mmol/L Sodium 140 (136-145) mmol/L POC Potassium 3.1 L (3.3-5.0) mmol/L Potassium 3.0 L (3.5-5.1) mmol/L Chloride 104 (98-107) mmol/L Carbon Dioxide 17 L (21-32) mmol/L Anion Gap 19 H (3-11) BUN 13 (6-23) mg/dl Creatinine 1.52 H (0.6-1.4) mg/dl Est Cr Clr Drug Dosing Not Reportable Est GFR ( Amer) 51.9 ml/min Est GFR (Non-Af Amer) 44.8 ml/min BUN/Creatinine Ratio 8.6 L (10-20) Glucose 286 H (70-99(Fasting)) mg/dl Calcium 8.3 L (8.5-10.1) mg/dl Magnesium 2.4 (1.7-2.4) mg/dl Total Bilirubin 0.3 (0.2-1.0) mg/dl AST 40 H (13-39) U/L ALT 39 (7-52) U/L Alkaline Phosphatase 92 (34-104) U/L Troponin I High Sens 337.8 H* (0-20) pg/ml Total Protein 5.9 L (6.0-8.3) gm/dl Albumin 3.7 (3.4-5.0) gm/dl Globulin 2.2 L (2.5-4.0) gm/dl Albumin/Globulin Ratio 1.7 (0.9-2) /07/13 Range/Units 01:22 WBC (4.8-10.8) K/uL RBC (4.7-6.1) M/uL Hgb (14.0-18.0) g/dL POC Hgb (14.0-18.0) g/dl Hct (42-52) % POC Hct (42-52) % MCV (80-100) fL MCH (25-34) pg MCHC (32-36) g/dL RDW Std Deviation (36.4-46.3) fL RDW Coeff of Aaron (11.5-14.5) % Plt Count (130-400) K/uL MPV (7.4-10.4) fL Neutrophils % (Manual) % Lymphocytes % (Manual) % Monocytes % (Manual) % Eosinophils % (Manual) % Basophils % (Manual) % Metamyelocytes % (Man) % Myelocytes % (Man) % Neutrophils # (Manual) (1.4-6.5) K/uL Total Absolute Neuts (1.4-6.5) K/uL Lymphocytes # (Manual) (1.2-3.4) K/uL Total Abs Lymphocytes (1.2-3.4) K/uL Monocytes # (Manual) (0.11-0.59) K/uL Eosinophils # (Manual) (0-0.5) K/uL Basophils # (Manual) (0-0.2) K/uL Metamyelocytes # (Man) (0-0) K/uL Myelocytes # (Manual) (0-0) K/uL RBC Morphology Activ Coag Time Kaolin 255 H (94-140) SECONDS POC pH (7.35-7.45) POC pCO2 (35-46) mmHg POC pO2 (80-95) mmHg POC HCO3 (19-24) lester/L POC Total CO2 (24-31) mmol/L POC Base Excess (-9-1.8) lester/L POC ABG O2 Sat (90-95) % POC Sodium (135-144) mmol/L Sodium (136-145) mmol/L POC Potassium (3.3-5.0) mmol/L Potassium (3.5-5.1) mmol/L Chloride (98-107) mmol/L Carbon Dioxide (21-32) mmol/L Anion Gap (3-11) BUN (6-23) mg/dl Creatinine (0.6-1.4) mg/dl Est Cr Clr Drug Dosing Est GFR ( Amer) ml/min Est GFR (Non-Af Amer) ml/min BUN/Creatinine Ratio (10-20) Glucose (70-99(Fasting)) mg/dl Calcium (8.5-10.1) mg/dl Magnesium (1.7-2.4) mg/dl Total Bilirubin (0.2-1.0) mg/dl AST (13-39) U/L ALT (7-52) U/L Alkaline Phosphatase (34-104) U/L Troponin I High Sens (0-20) pg/ml Total Protein (6.0-8.3) gm/dl Albumin (3.4-5.0) gm/dl Globulin (2.5-4.0) gm/dl Albumin/Globulin Ratio (0.9-2) Imaging Data My Impression: cxr: ET tube in good position, no obvious pneumothorax or focal infiltrate ECG Data Attestation: I personally reviewed and interpreted this ECG as follows: Indication: + altered mental status Rate (beats per minute): 112 Rhythm: + atrial fibrillation ECG Intervals/blocks: + IVCD and + Normal QT ECG [place]: + Normal ECG ST segments: + ST depression and + ST elevation MDM Narrative An order was placed for continuous cardiac monitoring. The monitor shows a rate of _106__ with _atrial fib_ rhythm. This is a 75-year-old male brought in by EMS as a cardiac arrest with ROSC. Upon arrival here, patient did have a pulse, second IV was established, IV fluids continued. Bedside ultrasound by myself did not reveal any obvious pericardial effusion. Decreased overall contractility was noted. Patient was able to be easily bagged and had bilateral breath sounds with bagging. No significant secretions from the ET tube. No evidence of trauma on exam. Physician budget assistant from the ICU did come to the room as well, and as the heart alert had previously been called, the dye house hand Dr. Hernandez and rest of his team also came to the room in addition. Chest x-ray did confirm ET tube placement and no other acute lung pathology noted. Vera catheter plac ed. Blood gas obtained as well as additional labs. Patient was given bicarb as a precaution prior to transfer to the [facility]. Patient's did present to the emergency room and I updated her outside the patient's room. She states he does have a history of atrial fibrillation and takes metoprolol. He also takes omeprazole. No use of anticoagulation or antiplatelet therapy. She states he h ad complained of chest pain earlier in the weekend and was going to follow-up with his PCP when they return home as they are from out of the area. Impression & Plan Cardiac arrest, ST elevation (STEMI) myocardial infarction, Dysrhythmia Discharge Plan Visit Data Chief Complaint: Heart Alert Stated Complaint: POST CARDIAC ARREST, ROSC ED Provider: Dona Bender Discharge Problem: Cardiac arrest, ST elevation (STEMI) myocardial infarction, Dysrhythmia Patient Disposition: Admitted As Inpatient Discharge Instructions Interventions: ED Discharge Assessment Last Done: 09/20/21 00:43
[2021-09-20] MEDS ORDERED: ICU PROTOCOL FOR HYPERGLYCEMIA PRN (03:14)
[2021-09-20] MEDS ORDERED: STAT IV Infusion **Titration per Protocol STA ×4 (03:14→11:44)
--- NOTE | 2021-09-20 03:16 | Cardiac Catheterization ---
Cardiac Cath Procedure Full Procedure Date September 20, 2021 Patient was brought emergently to the cardiac catheterization suite postcardiac arrest with CPR and defibrillatory shocks. Return of spontaneous circulation. Patient was intubated. Patient was shaved and prepped in a sterile fashion. Sedated using IV Versed and fentanyl. Soft tissues of the right groin was anesthetized using 10 mL of 1% Xylocaine. Using the ultrasound for guidance, the right femoral vein was accessed and a 5 Rw[place]an femoral venous sheath was placed. This was attached to the IV system as his other IV access was not functioning properly. Again, using ultrasound for guidance (image saved) the right femoral artery was accessed and a 5 [place]an femoral arterial sheath was placed. Patient was provided 6500 units of IV heparin. We then proceeded with coronary angiography. Left coronary angiography was performed in orthogonal views with a 5 Rw[place]an JL 4 diagnostic catheter. This revealed severe multivessel occlusion including left main stenosis. We then proceeded for right coronary angiography but the patient developed ventricular tachycardia. Multiple shocks were delivered but he had recalcitrant VT. His blood pressure dropped significantly (cardiogenic shock) and CPR was initiated. He was provided amiodarone, bicarbonate, epinephrine, norepinephrine and phenylephrine were provided as a drip. After vigorous CPR we were able to convert to sinus tachycardia and maintain an adequate mean arterial pressure. Decided to proceed immediately with attempted PCI of the left coronary system without completing right coronary angiography. Integrilin was then provided as a double bolus administration followed by a drip. The 5 Rw[place]an femoral arterial sheath was exchanged for a 6 Rw[place]an femoral arterial sheath. A 6 [place]an EBU 3.5 guide catheter was then advanced over the J-wire and used to engage the left main coronary. Through this the BMW reversal guidewire was advanced into the LAD system. A 2.5 x 8 trek balloon was advanced and positioned across the lesion in the left main. This was then dilated to 8 dawn. The balloon was removed and angiography was performed. The balloon was then reinserted and advanced into the LAD system where this was predilated twice to 8 dawn. Balloon was removed and a 2.5 x 15 mm trek balloon was advanced. It was positioned across the lesion spanning the distal left main into the proximal LAD. This was inflated to 14 dawn. A second inflation was then performed to 18 dawn. A 3.0 x 15 mm trek balloon was then advanced and again positioned across the left main into the proximal LAD. This was inflated to 14 dawn. The balloon was then removed. Angiography was performed showing that the distal guidewire was actually down into the large caliber multi branching first diagonal. The guidewire was therefore redirected and passed across the stumped mid LAD. It traveled distally relatively easily but angiography did not reveal much about the LAD distal to the stumped area. Therefore, a 2.5 x 15 mm trek balloon was reinserted and dilatation was performed from the mid to the distal LAD using 8 dawn in the mid portion and 6 dawn distally with a 4 dawn inflation as the LAD approached the apex. Despite angioplasty we could not visualize the lumen of the vessel. The balloon was removed. A 3.0 x 15 mm balloon was then reinserted and the proximal vessel was dilated to 8 dawn. Second inflation was then performed to 10 dawn and remained inflated for 30 seconds. The balloon was repositioned and again inflated to 10 dawn for 30 seconds. A third inflation after repositioning was performed to 10 dawn for 30 seconds. The balloon catheter was removed and angiography was performed. At this time, we could see the entire LAD vessel and proceeded next with stent implantation. A 2.5 x 22 mm Bernardo drug-eluting stent was advanced and positioned across the lesion in the mid LAD beginning just after the ostium of the first diagonal. This was deployed using 12 dawn of pressure. Stent balloon was then removed. A 4.0 x 18 mm [place] drug-eluting stent was then advanced across the lesion spanning the distal left main through the proximal portion of the LAD. This was then deployed initially at 16 dawn with a second inflation performed to 18 dawn. The balloon was deflated and angiography was performed. The balloon was then removed. The BMW guidewire was pulled back out of the LAD and passed across the struts into the left circumflex. The ostium of the circumflex and the struts which were jailing it were then dilated using a 2.5 x 8 mm NC trek balloon inflated up to 18 dawn. The balloon was then deflated and both the balloon and guidewire were removed. Final angiographic evaluation was performed in orthogonal views. The guide catheter was then removed over the J-wire. We next proceeded to complete the diagnostic portion of the study. A 5 R[place]an JR4 diagnostic catheter was advanced and used to engage the right coronary artery. Right coronary angiography was performed in orthogonal views. Catheter was then disengaged from the right coronary and using the J-wire was advanced across the aortic valve into the left ventricle. After guide wire removal the left ventricular hemodynamics were measured. The catheter was then pulled back across the aortic valve and central aortic pressures measured. Catheter was then removed from the patient. This completed the coronary and left heart portion of the case. We next moved to insert the hypothermia cooling catheter. The 5 [place]an femoral venous sheath was removed over a guidewire. The veinous access was then dilated using the dilator provided in the cooling catheter kit. Then, the cooling catheter was advanced over the guidewire. Once it was in position the guidewire was removed and the ports were all flushed. Finally, the cooling catheter was sutured in place. The right femoral arterial sheath was then sutured in place at the request of the territory outside sales manager. This was to be hooked to the arterial line. After the access site was dressed the patient was then provided Brilinta via his NG tube. The patient was then transferred to the intensive care unit for therapeutic hypothermia and additional work-up and management as indicated. This ended the case. Pre-Procedure Diagnosis Pre-Procedure Diagnosis: STEMI AUC Score AUC Score: 08 Post-Procedure Diagnosis Post-Procedure Diagnosis: Severe CAD Procedure(s) Performed Procedure(s) Performed: Coronary Angiography, Left Heart Cath, Drug Eluting Stent, Ultrasound Guided Vascular Access, CPR, Defibrillation and Procedure (Hypothermia catheter insertion) Portable Track Crew Chief Kendrick Hernandez MD, PhD Estimated Blood Loss Estimated Blood Loss: 20 ml Medication(s) Medication(s): Adenosine, Aspirin, Epinephrine, Fentanyl, Heparin, Integrilin, Lidocaine 1%, Ahmet-Synephrine, Norepinephrine and Versed Summary of Findings Left main: Distal 70 to 90% stenosis. Hazy with thrombus. LAD: Ostial 99% stenosis. 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 There is a large multi branching first diagonal which is 100% occluded proximally. YAMEL 0 flow distally. The mid LAD is 100% occluded with YAMEL 0 flow distally. Left circumflex: Large caliber and codominant. Provides a large caliber branching first OM which reaches towards the lateral apex. This has proximal eccentric 70% stenosis. The proximal and mid AV groove circumflex are large in caliber with diffuse mild disease. There is a large caliber OM 2 which has diffuse mild disease. The AV groove vessel then becomes medium in size as it traverses distally becoming its a small left PDA and then terminating. RCA: Medium to large caliber codominant vessel. Proximal vessel has a long eccentric 40 to 50% stenosis. The mid vessel has diffuse mild disease and then there is only a short distal segment before the vessel bifurcates into a long medium caliber PDA and a small to medium caliber posterior lateral. These vessels are are angiographically normal. PCI of left main and LAD: 0% residual stenosis in the distal left main and proximal LAD post stent implantation. The stented segment is approximately the same diameter as the aneurysmal proximal LAD segment which is not stented. 0% residual stenosis in the mid LAD post stent implantation. Stent begins just after the ostium of the large diagonal and extends for 22 mm. 0% residual stenosis in the proximal portion of the first diagonal post PTCA (initially thought to be the LAD until reperfusion demonstrated this was the diagonal branch). 20% residual stenosis at the ostium of the circumflex secondary to jailing from left main stent with improved flow post PTCA. YAMEL-3 flow post PCI No evidence of dissection or perforation post PCI Hemodynamics Rest Ao:: 98/70 mmHg, mean 82 mmHg Final Ao: 109/71 mmHg, mean 86 mmHg LV: 101/17 mmHg, LVEDP 28 mmHg Recommendations Recommendations: PCI without planned CABG and Management Recommendatons (Complete therapeutic hypothermia per protocol. Dual antiplatelet therapy with aspirin and Brilinta. Initiate guideline directed medical therapy with beta- louann, high intensity statin therapy, and MILLY inhibitor/ARB as tolerated.) Radiation Exposure (mGy) 3790 Contrast (mls) 255 Anesthesia Fentanyl and Versed Procedural Complication(s) None Disposition ICU I attest to the content of the Intraoperative Record and any orders documented therein. Any exceptions are noted below. [facility] Data: Multiple Resaw Operator Cardiac Status Clinical evaluation leading to the procedure CAD Presenation: STEMI (Cardiac arrest, cardiogenic shock) Cardiogenic Shock within 24 Hours: Yes Cardiac Arrest within 24 Hours: Yes STEMI OR Non-STEMI Symptom Onset Date: 09/19/21 Coronary Anatomy Dominant: Co-Dominant Left Main (% Stenosis): Distal (70-90%) LAD (% Stenosis): Ostial (99%), Proximal (aneurysmal) and Mid (100%) D1 (% Stenosis): Proximal (100%) OM1 (% Stenosis): Proximal (70%) OM2 (% Stenosis): Proximal (mild) L PDA (% Stenosis): Normal RCA (% Stenosis): Proximal (40-50%) R PDA (% Stenosis): Normal R PL1 (% Stenosis): Normal Diagnostic Physicians Name: Kendrick Hernandez MD, PhD Closure Device Recommendations: PCI without planned CABG and Management Recommendatons (Complete therapeutic hypothermia per protocol. Dual antiplatelet therapy with aspirin and Brilinta. Initiate guideline directed medical therapy with beta- louann, high intensity statin therapy, and MILLY inhibitor/ARB as tolerated.) PCI Indication: Immediate PCI for STEMI First Noted: First EKG Reason For Delay in PCI:: Cardiac Arrest &/or Lesion Segment Name: LM-ostial LAD Culprit Artery: Yes Stenosis Prior to Rx (%): 70-99% Pre-Procedure YAMEL Flow: 2 Previously Treated Lesion: No Lesion Length (mm): 18 Thrombus Present: Yes Bifurcation Lesion: Yes Guidewire Across Lesion: Yes Lesion #2 Segment Name: mid LAD Culprit Artery: Yes Stenosis Prior to Rx (%): 100 Pre-Procedure YAMEL Flow: 0 Lesion Length (mm): 15 Thrombus Present: Yes Bifurcation Lesion: No Guidewire Across Lesion: Yes Intraprocedure Events Significant Disection: No Perforation: No
[2021-09-20] MEDS ORDERED: ARTIFICIAL TEARS OP OINT 3.5 GM TUBE OP PRN (03:20)
[2021-09-20] MEDS ORDERED: NORMOSOL-R 1,000 ML IV SCH (03:30)
[2021-09-20] MEDS ORDERED: MIDAZOLAM BOLUS FROM BAG IV PRN (03:31)
[2021-09-20] MEDS ORDERED: MIDAZOLAM HCL 125MG/250ML D5W ONE (03:33)
[2021-09-20] MEDS ORDERED: fentaNYL citrate 2,500 MCG/250 ML BAG IV ONE (03:33)
[2021-09-20 03:43] LABS: iSTAT Arterial Blood Gas HCO3 23 meg/L (19-24); iSTAT Arterial Blood Gas pCO2 62 mmHg (35-46); iSTAT Arterial Blood Gas pH 7.19 (7.35-7.45); iSTAT Arterial Blood Gas pO2 44 mmHg (80-95); iSTAT Carbon Dioxide 25 mmol/L (24-31); iSTAT FiO2 100 %; iSTAT Site Art Line
[2021-09-20] MEDS ORDERED: MIDAZOLAM HCL 125 MG/250 ML BAG IV SCH (03:45)
[2021-09-20] MEDS: NOREPINEPHRINE/D5W 8 MG/508 ML BAG IV SCH ×3 (04:05→11:37)
[2021-09-20] MEDS: PHENYLEPHRINE HCL 20 MG in DEXTROSE 5% 500 ML IV SCH ×3 (04:05→08:29)
[2021-09-20] MEDS: fentaNYL citrate 2,500 MCG/250 ML BAG IV SCH (04:08)
[2021-09-20] MEDS ORDERED: TXA 10% Non-IV Routes 100 MG/ML VIAL NEB ONE (04:23)
--- NOTE | 2021-09-20 04:25 | Procedure Note ---
Procedure Note Date of Service September 20, 2021 Note Procedure: Flexible Bronchoscopy Attending/Underground Mine Machinery Mechanic: Russell Tsang PA-C Anesthetic/Sedation: Fentanyl/Versed gtts Indication: Hemoptysis, clearance of airway Emergent consent implied in the setting of worsening hypoxemia with profound hemoptysis and need for airway clearing. A time-out was completed verifying correct patient, procedure, site, positioning, and implant(s) or special equipment if applicable. Findings: Bedside portable bronchoscope was inserted into the ET tube. Copious amounts of bright red blood were suctioned from the ET tube. At the distal portion of the ET tube at the side eyelet, there was a large piece of tissue that seemed wrapped around the ET tube. This appeared to be source of moderate amount of bleeding. The area was flushed with cold saline and suctioned. This did seem to slow bleeding. Distally in the areas, they appear atraumatic and without significant bleeding from lower airways. Previous suctioning of upper areas was performed. No samples obtained. Saturations improved shortly after bronchoscopy. Coding CPT Codes Pulmonary/Thoracic - Pulmonary and Thoracic: 79161 Bronchoscopy, clear airways ([id number]) [facility] [place] Procedure Codes (Charges) Pulmonary/Thoracic Procedure 1: Pulmonary and Thoracic: 04196 Bronchoscopy, clear airways
--- NOTE | 2021-09-20 04:25 | Critical Care Consultation ---
Date of Consultation September 20, 2021 Assessment & Plan (1) Admitted to intensive care unit: Reason Critically Ill: 75-year-old male status post cardiac arrest with ROSC who underwent drug-eluting stent placement x2 requiring ongoing hemodynamic management as well as ventilatory support. NEURO - * CAM ICU: Unable to assess * Sedation: Versed * Pain: Fentanyl * s/p Cardiac Arrest: * No purposeful movement. * No withdrawal from painful stimuli. * Pupils equal, not dilated, but nonreactive to light. * Minimal cough. * No gag. * Monoclonal jerking movements concerning for posturing. * CT Head w/o acute findings. * EEG to assess ?? seizure activity * Concerning down time initially in the field of 10-20 min w/ additional down time in lab associate of 10-15 min. Without purposeful movement and degree of down time, neurological recovery at this time seems bleak. CARDIAC/VASCULAR - * V Tach/V fib cardiac arrest w/ ROSC who is s/p LUDWIG x2: * Initally w/ down time of ~10-20 min until ROSC. Received Defib x3, Epi x3, Amio push, Bicarb during initial resuscitation. * Arrested second time during cath for ~10-15 min. * Currently on Levo/Ahmet gtts. * Amio drip continued. * Will maximize electrolytes. * Titrate down pressors as tolerated. * AM Echo * Trend Trops * d/c Integrilin gtt per cardiology recommendation. * TTM in place w/ goal temp of 34'C * Should be noted that does point out that the patient had been having stuttering chest pain since . She actually tried to convince him to come to the ED Monday, but he opted to wait until he returned home to [place]. * Monitor on telemetry. RESPIRATORY - * Respiratory Failure: * 2/2 Cardiac arrest. * Hemoptysis: * Humberto hemoptysis upon return from lab associate. * Concerning for alveolar hemorrhage/trauma. * Emergent bedside bronch performed which showed tissue with active bleeding at the distal portion of the ETT. Treated w/ cold saline flushes and suction. Bleeding improved. Will try one time dowse of nebulized TXA to attempt to relieve proximal airway bleeding. * Patient may require formal bronch, but we will see how he does after TXA and maximization of ventilator settings. GI/NUTRITION - * OGT in place. * Prophylaxis: Protonix RENAL/LYTES - * PRATEEK: * Likely prerenal in the setting of cardiac arrest. * Will provide ongoing IVF. * As patient is acidotic, will add HCO3 gtt w/ K+ * Hypokalemia: * Possibly iatrogenic 2/2 HCO3 during resuscitation. * Will add replacement and K+ to his IVF for a goal K+ of ~4 - * Vera in place - Strict I&Os. ENDO - * Hyperglycemia: * BSGs per unit protocol. ISS --> gtt per unit policy. HEME - * Stable H&H ID - * No previous sequela of symptoms to suggest underlying infectious causes. LINES/IV ACCESS - * PIVs x1 * RIGHT Femoral CVL * RIGHT Femoral A line * ETT * OGT * Vera DVT PROPHYLAXIS - * Hold while on Integrilin gtt. * SCDs I have personally spent 85 minutes of critical care time in the direct management of this patient. This is a life/limb threatening event. This includes time spent evaluating patient, direct bedside care, chart review, placing orders, interpretation of diagnostic studies, discussion with consultants, patient, and family members, as well as other required patient management activities. This time is exclusive of all separately billable procedures, and teaching time and separate from and in addition to any other critical care service time. Thank you for allowing us to participate in the care of this patient. Please refer to my attending physician's documentation for any further recommendations. (2) Cardiac arrest: (3) ST elevation (STEMI) myocardial infarction: (4) Dysrhythmia: History of Present Illness Attending Physician: Kendrick Hernandez MD, PhD History of Present Illness Patient is a 75-year-old male with unknown past medical history who presented to the emergency department status postcardiac arrest with ROSC. Apparently, the patient had gone downstairs and when he did not return, the checked on him and found him on the ground. EMS was contacted. Chest compressions were not started immediately. PD did arrive after few minutes and AED advised 2 separate shocks. Patient did apparently receive chest compressions per Vignesh machine upon EMS arrival. He was intubated in the field and received 2 A of epinephrine and bicarb pushes as well as amiodarone. ROSC was eventually achieved. Post ROSC EKG demonstrates STEMI. Heart alert was called and the patient was taken to the catheterization suite upon arrival. During catheterization, the patient developed several runs of V. tach requiring several episodes of defibrillation. Eventually, the patient again lost a pulse and required several minutes of CPR. During this time, I did speak to his who did change the patient's CODE STATUS to DNR. Prior to change in status, the patient did regain pulse. Patient was successfully stented x2 and brought to the ICU for ongoing management. Upon arrival in the ICU, the patient remained on 2 pressors, amiodarone drip, and Integrilin. Additionally, significant hemoptysis noted from ET tube. Patient without purposeful movements. Not requiring sedation immediately. Home Medications Medication Instructions Recorded Confirmed Type Unobtainable 09/20/21 09/20/21 History Patient History Social History Smoking Status: Unknown if ever smoked Hx Alcohol Use: No Hx Substance Use: No Preferred Language: Latvian Communication Ability: Unable Pets Salesperson Required: No Beliefs That Will Affect Care: None Current Living Situation: Spouse Current Living Situation Comment: [place] WITH SPOUSE Other Information That Helps Us Care for You: No Review of Systems Review of Systems: Unobtainable due to cognitive status and Unobtainable due to endotracheal tube Physical Exam Physical Exam: VITAL SIGNS - Vital signs and nursing notes were reviewed. GENERAL - 75-year-old male appearing his stated age who is in active extremis. HEAD - NC/AT. EYES - Equal. Non responsive. Not dilated. EARS - No deformities of external structures noted on gross examination bilaterally. NOSE - Midline and without cyanosis. MOUTH/OROPHARYNX - ETT/OGT in place. Without perioral cyanosis. NECK - Neck with FROM. Supple to palpation. LUNGS - Coarse breath sounds noted throughout. CARDIAC - RRR with S1/S2. No murmur, rubs, or gallops appreciated. ABDOMEN - Abdominal contour flat without pulsations or visible masses. BS normoactive all four quadrants. No tenderness, palpable masses, hepatosplenomegaly, or ascites noted. EXTREMITIES - No clubbing or peripheral cyanosis. No pretibial edema present. +3/5 radial and dorsalis pedis pulses palpated throughout. NEUROLOGIC - No purposeful movements. No response to painful stimuli. Cough present. Pupils fixed and nonreactive. Slight posturing noted. Does overbreath the vent. Results & Data Results & Data ([facility]) Vital Signs (Past 12 Hours) Vital Signs Pulse Resp BP Pulse Ox 09/20/21 00:17 113 H 106/76 98 09/20/21 00:10 114 H 28 H 99 Coding Level of Care Code Critical Care 1st 30-74 mins Diagnoses Admitted to intensive care unit Z78.[address] elevation (STEMI) myocardial infarction I21.3 Dysrhythmia I49.9 Time Spent (min) 85
[2021-09-20 04:33] LABS: Hematocrit (blood only) 39.3 % (42-52); Hemoglobin 12.9 g/dL (14.0-18.0); Mean Corpuscular Hemoglobin 30.1 pg (25-34); Mean Corpuscular Hgb Conc 32.8 g/dL (32-36); Mean Corpuscular Volume 91.8 fL (80-100); Mean Platelet Volume 9.9 fL (7.4-10.4); Platelet Count 380 K/uL (130-400); RDW Coefficient of Variation 13.3 % (11.5-14.5); RDW Standard Deviation 44.4 fL (36.4-46.3); Red Blood Count 4.28 M/uL (4.7-6.1); White Blood Count 29.54 K/uL (4.8-10.8)
[2021-09-20 04:43] LABS: Influenza A virus by PCR Negative (Neg); Influenza B virus by PCR Negative (Neg); RSV by PCR Negative (Neg); SARS CoV2 RNA(COVID-19) InHosp NEGATIVE (Negative)
[2021-09-20] MEDS ORDERED: PNEUMOCOCCAL POLYSACCHARIDES 25 MCG/0.5 ML VIAL/SYR IM ONE (04:48)
[2021-09-20 04:52] LABS: INR 1.3 (0.9-1.1); Partial Thromboplastin Ratio 2.1; Prothrombin Time 13.8 Seconds (9.0-12.0)
[2021-09-20 04:56] LABS: Albumin Globulin Ratio 1.8 (0.9-2); BUN Creatinine Ratio 14.4 (10-20); Bilirubin Direct 0.1 mg/dl (0-0.2); Bilirubin,Total 0.5 mg/dl (0.2-1.0); Creatinine Clr Calc Pharmacy 48.8 ml/min; Est GFR (African American) 54.5 ml/min; Globulin 1.7 gm/dl (2.5-4.0); Potassium 2.9 mmol/L (3.5-5.1); Total Protein 4.7 gm/dl (6.0-8.3)
[2021-09-20] MEDS ORDERED: EPTIFIBATIDE 75 MG/100 ML VIAL IV SCH (05:00)
[2021-09-20 05:04] LABS: Partial Thromboplastin Time 58.9 Seconds (21.0-31.0)
[2021-09-20] MEDS ORDERED: INSULIN PROTOCOL GOAL RANGE ONE (05:08)
[2021-09-20] MEDS ORDERED: 0.2 MICRON FILTER SET 1 EA IV ONE (05:08)
[2021-09-20] MEDS ORDERED: AMIODARONE / D5W 360 MG/200 ML BAG IV ONE (05:08)
[2021-09-20] MEDS ORDERED: SEVERE STRESS LEVEL ONE (05:08)
[2021-09-20] MEDS ORDERED: AMIODARONE 360MG / 200ML D5W IV ONE (05:09)
[2021-09-20 05:18] LABS: Basophils # (auto) 0.03 K/uL (0-0.2); Basophils % (auto) 0.1 %; Eosinophils # (auto) 0.01 K/uL (0-0.5); Immature Granulocytes % (auto) 0.3 %; Lymphocytes # (auto) 1.51 K/uL (1.2-3.4); Lymphocytes % (auto) 5.1 %; Monocytes # (auto) 2.01 K/uL (0.11-0.59); Monocytes % (auto) 6.8 %; Neutrophils # (auto) 25.88 K/uL (1.4-6.5); Neutrophils % (auto) 87.7 %
[2021-09-20] MEDS ORDERED: GLUCAGON FOR INJ 1 MG VIAL IM PRN (05:30)
[2021-09-20] MEDS ORDERED: DEXTROSE 50% 50 ML SYRINGE IV PRN (05:30)
[2021-09-20] MEDS ORDERED: CARBOHYDRATES FOR HYPOGLYCEMIA PO PRN (05:30)
[2021-09-20] MEDS ORDERED: GLUCOSE 10 TABS/TUBE PO PRN (05:30)
[2021-09-20] MEDS ORDERED: CALCIUM CHLORIDE 10% 1,000 MG in DEXTROSE 5% 50 ML IV ONE (05:30)
[2021-09-20] MEDS ORDERED: GLUCOSE 40% GEL 15 GM TUBE PO PRN (05:30)
[2021-09-20 05:39] LABS: iSTAT Arterial Blood Gas HCO3 23 meg/L (19-24); iSTAT Arterial Blood Gas pCO2 70 mmHg (35-46); iSTAT Arterial Blood Gas pH 7.13 (7.35-7.45); iSTAT Arterial Blood Gas pO2 61 mmHg (80-95); iSTAT Carbon Dioxide 25 mmol/L (24-31); iSTAT FiO2 100 %; iSTAT Site Art Line
[2021-09-20] MEDS ORDERED: INSULIN HUMAN REGULAR IV BOLUS 3 UNITS in SYRINGE 0 ML IV ONE (05:45)
[2021-09-20] MEDS: INSULIN REGULAR 250 UNITS in SODIUM CHLORIDE 0.9% 247.5 ML IV SCH (05:49)
[2021-09-20] MEDS: POTASSIUM ACETATE/NSS 20 MEQ/110 ML BAG IV SCH ×2 (05:50→07:59)
[2021-09-20] MEDS: SODIUM BICARBONATE IV SCH ×2 (06:19→16:36)
[2021-09-20] MEDS: POTASSIUM ACETATE IV SCH ×2 (06:19→16:36)
[2021-09-20] MEDS: WATER IV SCH ×2 (06:19→16:36)
[2021-09-20] MEDS: STERILE IV SCH ×2 (06:19→16:36)
[2021-09-20] MEDS ORDERED: Nursing to Pharmacy Communication SCH (06:30)
[2021-09-20] MEDS: AMIODARONE / D5W 360 MG/200 ML BAG IV SCH ×2 (06:31→18:15)
--- NOTE | 2021-09-20 07:00 | XRay Report ---
XR chest 1V portable HISTORY: 75 years-old Male hypoxia, hemoptysis acute hypoxia COMPARISON: Chest radiograph of same day at 1:04 AM TECHNIQUE: Portable AP view of the chest FINDINGS: The cardiac silhouette is normal in size. Endotracheal tube overlies the midline, 3.1 cm superior to the annette. IVC catheter distal tip overlies the right atrium. No pneumothorax or large pleural effus ion. Interstitial coarsening with extensive mid upper lung zone predominant airspace opacities have p rogressively worsened since the prior study. Bones appear grossly intact. IMPRESSION: 1. Endotracheal and central venous catheter placement as above. 2. Extensive progressively worsened mixed interstitial and alveolar opacities of the mid to upper srini g zones. Aspiration, ARDS versus pulmonary edema considered. ACT 112: Negative or not required by law. The above report was generated using voice recognition software. It may contain grammatical, syntax o r spelling errors. Electronically signed by: Kai Edward M.D. 09/20/2021 6:59 AM
--- NOTE | 2021-09-20 07:06 | XRay Report ---
XR chest 1V portable HISTORY: 75 years-old Male s/p intubation acute respiratory failure COMPARISON: None TECHNIQUE: AP view of the chest FINDINGS: Endotracheal tube overlies the midline, 2.4 cm superior to the annette. Cardiac silhouette is upper li mits of normal in size. Interstitial coarsening with ill-defined mid to upper lung zone predominant a irspace opacities. No pneumothorax or large pleural effusion. Bones appear grossly intact. IMPRESSION: 1. The endotracheal tube overlies the midline, 2.4 cm superior to the annette. 2. Nonspecific mid to upper lung zone predominant mixed interstitial and alveolar opacities. 3. No pneumothorax. ACT 112: Negative or not required by law. The above report was generated using voice recognition software. It may contain grammatical, syntax o r spelling errors. Electronically signed by: Kai Edward M.D. 09/20/2021 7:04 AM
--- NOTE | 2021-09-20 07:35 | CT Scan Report ---
CT head/brain wo con CLINICAL HISTORY: 75 years-old Male with ams. Acute cardiac arrest TECHNIQUE: Multiple axial CT images of the head were obtained without contrast. A dose lowering tech nique was utilized adhering to the principles of ALARA. CT DOSE: 1382.10 mGy.cm COMPARISON: Fluoroscopic cardiac catheterization images of same day at 12:08 AM FINDINGS: No acute intracranial hemorrhage, midline shift, intracranial mass, hydrocephalus, territorial ischem ia or abnormal extra-axial collection. Evaluation for acute intraparenchymal hemorrhage is limited se condary to IV contrast. The study is mildly motion degraded. Mild white matter hypodensities suggest chronic microvascular ischemic disease. The calvarium is intact. The paranasal sinuses, mastoid air cells, and middle ear cavities are clear . IMPRESSION: No acute intracranial abnormality. ACT 112: Negative or not required by law. The above report was generated using voice recognition software. It may contain grammatical, syntax o r spelling errors. Electronically signed by: Kai Edward M.D. 09/20/2021 7:33 AM
[2021-09-20 07:52] LABS: iSTAT Arterial Blood Gas HCO3 25 meg/L (19-24); iSTAT Arterial Blood Gas pCO2 58 mmHg (35-46); iSTAT Arterial Blood Gas pH 7.24 (7.35-7.45); iSTAT Arterial Blood Gas pO2 47 mmHg (80-95); iSTAT Carbon Dioxide 26 mmol/L (24-31); iSTAT Hematocrit 40 % (42-52); iSTAT Hemoglobin 13.6 g/dl (14.0-18.0); iSTAT Potassium 3.1 mmol/L (3.3-5.0); iSTAT Sodium 138 mmol/L (135-144)
[2021-09-20] MEDS: INSULIN ASPART PER UNIT SC SCH ×4 (07:55→21:21)
[2021-09-20] MEDS ORDERED: ASPIRIN 81 MG ECTAB PO SCH (09:00)
--- NOTE | 2021-09-20 09:05 | History & Physical Report ---
Date of Service September 20, 2021 Assessment & Plan (1) Cardiac arrest: Plan: 75 yo male s/p cardiac arrest with ROSC who underwent drug-eluting stent placement x2 requiring ongoing hemodynamic management as well as ventilatory support. Per has PMHx afib not on anticoagulation. Admitted to ICU for further management. #Cardiac Arrest with V tach/V fib/OK -concerning down time initially in the field of 10-20 min w/ additional down time in biological lab technician of 10-15 min. -achieved ROSC prior to ED arrival, arrested again during catheterization requiring epi and defibrillation -CT head (09/20): no acute findings -cooling protocol per ICU -Versed for sedation and fentanyl for pain -amiodarone drip d/sal #Acute resp failure sec to cardiac arrest/OK -intubated and sedated in ICU s/p PCI -some hemoptysis from endotracheal tube, now maintained on pressors and amioderone #STEMI -found on EKG via EMS, taken to biological lab technician upon arrival -minimal risk factors for CAD per 's history -trops 340 --> 27k, trend -EKG (09/20): ST elevations anterolateral leads -Cath (09/20): left main 70-90% stenosis, LAD ostial 99% stenosis; did arrest with several runs of Vtach during catheterization -s/p drug eluting stents x2 -postintervention echo (09/20): severely reduced LV function, mildly reduced RV function, mild akineses basal segments, akinesis anterolateral wall, mild dyskinesis entire apex -repeat Echo in am -metoprolol, statin added. #Cardiogenic shock -IV darin/vasopressin drip #H/o afib - reports patient takes metoprolol 25mg bid as needed for palpitations, not on anticoagulation -EKG (09/20 at 0700): atrial fibrillation #PRATEEK -Cr 1.59, baseline unknown -likely prerenal in setting of cardiac arrest -jordan in place, strict I/Os -Kept on bicarb drip for acidosis - d/sal -cont. IVF, recheck am #Hyperglycemia -insulin drip per pharmacy #Hypokalemia -K 3.1 -Repleting with IVF+K, recheck am LINES/IV ACCESS - * PIVs x1 * RIGHT Femoral CVL * RIGHT Femoral A line * ETT * OGT * Jordan DVT ppx: SCDs, integrillin ggt d/sal FEN/GI: OGT in place, NaHCO3/K in sterile water maintenance, jordan in place GI proph - protonix Code Status: Conditional, DNR Dispo: ICU status (2) ST elevation (STEMI) myocardial infarction: (3) Afib: Admission and Anticipated Discharge Date Admission Date: September 20, 2021 History of Present Illness Chief Complaint: Post Cardiac Arrest, ROSC Primary Care Provider: CHEN PCP 75 yo male presented to the emergency department status postcardiac arrest with ROSC. History obtained via who is at bedside due to patient being unresponsive. Mr. Adler and his were visiting [place] from [place] to take care of their grandchildren. Patient went to the basement to brush his teeth and upon returning upstairs the saw him in distress falling onto the couch. She immediately called 911 who had told her to start compressions and await for EMS arrival, which she did. PD did arrive after few minutes and AED advised 2 separate shocks.He received chest compressions per [facility] machine upon EMS arrival.He was intubated in the field and received 2 A of epinephrine and bicarb pushes as well as amiodarone. ROSC was eventually achieved. Post ROSC EKG demonstrated STEMI. Heart alert was called and the patient was taken to the catheterization suite upon arrival. During catheterization, the patient developed several runs of V. tach requiring several episodes of defibrillation.Eventually, the patient again lost a pulse and required several minutes of CPR.Patient was successfully stented x2 and brought to the ICU for ongoing management. Upon arrival in the ICU, the patient remained on 2 pressors, amiodarone drip, and Integrilin.Additionally, significant hemoptysis noted from ET tube.Patient without purposeful movements.Not requiring sedation immediately. Per : Allergies NKA PMHx -afib diagnosed 1 year ago, on metoprolol 25mg BID as needed when palpitations are felt, not on anticoagulation -COVID in May 2021, did not require hospitilization -Vitamin D deficiency taking supplementation FHx -no known h/o heart disease -sister has DM2 Social History -previous smoker for 10 years, quit in 1974 -no acohol use -swims in summer for exercise -well balanced diet, has been cutting down on meats, eating more vegetables Allergies Allergy/AdvReac Type Severity Reaction Status Date / Time No Known Allergies Allergy Unverified 09/20/21 13:26 Home Medications Medication Instructions Recorded Confirmed Type Unobtainable 09/20/21 09/20/21 History Past Med/Surg History Social History Smoking Status: Unknown if ever smoked Hx Alcohol Use: No Hx Substance Use: No Preferred Language: Mauritanian Communication Ability: Unable [place] Required: No Beliefs That Will Affect Care: None Current Living Situation: Spouse Current Living Situation Comment: [place] WITH SPOUSE Other Information That Helps Us Care for You: No Review of Systems Review of Systems: Unobtainable due to endotracheal tube Physical Exam Physical Exam: Constitutional: Vitals as above. HEENT: No scleral injection or discharge. Neck: Trachea midline. Lungs: Clear to auscultation bilaterally on ventilator Cardiac:Tachycardic. No murmurs. Abdomen: Bowel sounds present. Soft, nontender, and nondistended. MSK: No cyanosis. Skin: warm, dry. Neurologic: Pupils not reactive but equal. Sedated. Results & Data Results & Data ([facility]) Vital Signs (Past 12 Hours) Vital Signs Temp Temp Temp Pulse Pulse Resp BP 09/20/21 08:00 33.7 C L 33.7 C L 105 H 30 H 09/20/21 07:55 103 H 33 H 09/20/21 06:51 33.1 C L 33.2 C L 102 H 30 H 09/20/21 06:50 33.2 C L 109 H 18 09/20/21 06:40 33.0 C L 96 H 19 09/20/21 06:30 32.9 C L 92 H 16 09/20/21 06:23 90 09/20/21 06:20 32.9 C L 93 H 31 H 09/20/21 06:10 32.9 C L 83 30 H 09/20/21 06:00 33.0 C L 33.1 C L 32.9 C L 92 H 29 H 09/20/21 05:50 33.3 C L 76 21 09/20/21 05:40 33.6 C L 83 22 09/20/21 05:30 33.9 C L 83 18 09/20/21 05:20 34.2 C L 82 17 09/20/21 05:10 34.5 C L 80 16 09/20/21 05:00 34.8 C L 35.1 C L 34.8 C L 87 15 09/20/21 04:50 35.1 C L 84 18 09/20/21 04:40 35.5 C L 84 22 09/20/21 04:35 30 H 09/20/21 04:30 35.8 C L 90 15 09/20/21 04:20 36.2 C L 96 H 18 09/20/21 04:10 36.5 C 92 H 17 09/20/21 04:00 36.8 C 36.8 C 36.8 C 97 H 25 H 09/20/21 03:30 36.9 C 122 H 27 H 09/20/21 03:10 125 H 30 H 09/20/21 03:07 125 H 31 H 147/111 H 09/20/21 03:05 36.8 C 95 H 95 H 29 H 09/20/21 00:30 112 H 26 H 09/20/21 00:17 113 H 106/76 09/20/21 00:16 113 H 26 H 09/20/21 00:10 114 H 28 H BP BP Pulse Ox 09/20/21 08:00 100/63 103/60 86 L 09/20/21 07:55 83 L 09/20/21 06:51 87/47 L 92 09/20/21 06:50 94 09/20/21 06:40 89 L 09/20/21 06:30 87 L 09/20/21 06:23 09/20/21 06:20 87 L 09/20/21 06:10 09/20/21 06:00 77/60 L 89 L 09/20/21 05:50 89 L 09/20/21 05:40 74 L 09/20/21 05:30 91 09/20/21 05:20 85 L 09/20/21 05:10 82 L 09/20/21 05:00 77/43 L 87 L 09/20/21 04:50 75 L 09/20/21 04:40 76 L 09/20/21 04:35 80 L 09/20/21 04:30 73 L 09/20/21 04:20 79 L 09/20/21 04:10 77 L 09/20/21 04:00 94/76 L 71 L 09/20/21 03:30 71 L 09/20/21 03:10 73 L 09/20/21 03:07 79 L 09/20/21 03:05 147/111 H 68 L 09/20/21 00:30 95 09/20/21 00:17 98 09/20/21 00:16 09/20/21 00:10 99 Laboratory Results Laboratory Results WBC 29.54 K/uL (4.8-10.8) H D 09/20/21 04:18 RBC 4.28 M/uL (4.7-6.1) L 09/20/21 04:18 Hgb 12.9 g/dL (14.0-18.0) L 09/20/21 04:18 POC Hgb 13.3 g/dl (14.0-18.0) L 09/20/21 16:37 Hct 39.3 % (42-52) L 09/20/21 04:18 POC Hct 39 % (42-52) L 09/20/21 16:37 MCV 91.8 fL (80-100) 09/20/21 04:18 MCH 30.1 pg (25-34) 09/20/21 04:18 MCHC 32.8 g/dL (32-36) 09/20/21 04:18 RDW Std Deviation 44.4 fL (36.4-46.3) 09/20/21 04:18 RDW Coeff of Aaron 13.3 % (11.5-14.5) 09/20/21 04:18 Plt Count 380 K/uL (130-400) 09/20/21 04:18 MPV 9.9 fL (7.4-10.4) 09/20/21 04:18 Immature Gran % (Auto) 0.3 % 09/20/21 04:18 Neut % (Auto) 87.7 % 09/20/21 04:18 Lymph % (Auto) 5.1 % 09/20/21 04:18 [place] % (Auto) 6.8 % 09/20/21 04:18 Eos % (Auto) 0.0 % 09/20/21 04:18 Baso % (Auto) 0.1 % 09/20/21 04:18 Neut # (Auto) 25.88 K/uL (1.4-6.5) H 09/20/21 04:18 Lymph # (Auto) 1.51 K/uL (1.2-3.4) 09/20/21 04:18 [place] # (Auto) 2.01 K/uL (0.11-0.59) H 09/20/21 04:18 Eos # (Auto) 0.01 K/uL (0-0.5) 09/20/21 04:18 Baso # (Auto) 0.03 K/uL (0-0.2) 09/20/21 04:18 Immature Gran # (Auto) 0.10 K/uL (0.00-0.02) H 09/20/21 04:18 Neutrophils % (Manual) 49.1 % 09/20/21 00:15 Lymphocytes % (Manual) 40.4 % 09/20/21 00:15 Monocytes % (Manual) 2.6 % 09/20/21 00:15 Eosinophils % (Manual) 2.6 % 09/20/21 00:15 Basophils % (Manual) 2.6 % 09/20/21 00:15 Metamyelocytes % (Man) 0.9 % 09/20/21 00:15 Myelocytes % (Man) 1.8 % 09/20/21 00:15 Neutrophils # (Manual) 5.45 K/uL (1.4-6.5) 09/20/21 00:15 Total Absolute Neuts 5.45 K/uL (1.4-6.5) 09/20/21 00:15 Lymphocytes # (Manual) 4.48 K/uL (1.2-3.4) H 09/20/21 00:15 Total Abs Lymphocytes 4.48 K/uL (1.2-3.4) H 09/20/21 00:15 Monocytes # (Manual) 0.29 K/uL (0.11-0.59) 09/20/21 00:15 Eosinophils # (Manual) 0.29 K/uL (0-0.5) 09/20/21 00:15 Basophils # (Manual) 0.29 K/uL (0-0.2) H 09/20/21 00:15 Metamyelocytes # (Man) 0.10 K/uL (0-0) H 09/20/21 00:15 Myelocytes # (Manual) 0.20 K/uL (0-0) H 09/20/21 00:15 RBC Morphology Unremarkable 09/20/21 00:15 PT 14.6 Seconds (9.0-12.0) H 09/20/21 10:21 INR 1.4 (0.9-1.1) H 09/20/21 10:21 APTT 27.8 Seconds (21.0-31.0) 09/20/21 10:21 PTT Ratio 1.0 09/20/21 10:21 Sample Site Art Line 09/20/21 16:37 POC pH 7.21 (7.35-7.45) L 09/20/21 16:37 POC pCO2 60 mmHg (35-46) H 09/20/21 16:37 POC pO2 81 mmHg (80-95) 09/20/21 16:37 POC HCO3 24 lester/L (19-24) 09/20/21 16:37 POC Total CO2 26 mmol/L (24-31) 09/20/21 16:37 POC Base Excess -4.0 lester/L (-9-1.8) 09/20/21 16:37 ABG pH (Temp Correct) 7.255 (7.35-7.45) L 09/20/21 16:37 ABG pCO2 (Temp Corrct 52 mmHg (35-46) H 09/20/21 16:37 POC ABG pO2 at Pt Temp 67 09/20/21 16:37 POC ABG O2 Sat 93.0 % (90-95) 09/20/21 16:37 Jovan Test NA 09/20/21 16:37 O2 Delivery Device Ventilator 09/20/21 16:37 POC O2 Rate 24 09/20/21 16:37 POC FiO2 90 % 09/20/21 16:37 Tidal Volume 535 09/20/21 16:37 PEEP 14 09/20/21 16:37 POC Sodium 139 mmol/L (135-144) 09/20/21 16:37 Sodium 137 mmol/L (136-145) 09/20/21 13:42 POC Potassium 3.2 mmol/L (3.3-5.0) L 09/20/21 16:37 Potassium 3.1 mmol/L (3.5-5.1) L 09/20/21 13:42 Chloride 100 mmol/L (98-107) 09/20/21 13:42 Carbon Dioxide 25 mmol/L (21-32) 09/20/21 13:42 Anion Gap 12 (3-11) H 09/20/21 13:42 BUN 24 mg/dl (6-23) H 09/20/21 13:42 Creatinine 1.85 mg/dl (0.6-1.4) H 09/20/21 13:42 Est Cr Clr Drug Dosing 38.6 ml/min 09/20/21 13:42 Est GFR ( Amer) 41.0 ml/min 09/20/21 13:42 Est GFR (Non-Af Amer) 35.3 ml/min 09/20/21 13:42 BUN/Creatinine Ratio 13.0 (10-20) 09/20/21 13:42 Glucose 184 mg/dl (70-99(Fasting)) H 09/20/21 13:42 POC Glucose (other) 96 mg/dl (70-99) 09/20/21 17:26 Calcium 7.3 mg/dl (8.5-10.1) L 09/20/21 13:42 Ionized Calcium 1.03 mmol/L (1.12-1.32) L 09/20/21 13:51 Phosphorus 3.0 mg/dl (2.5-4.9) 09/20/21 04:18 Magnesium 1.5 mg/dl (1.7-2.4) L 09/20/21 10:21 Total Bilirubin 0.5 mg/dl (0.2-1.0) 09/20/21 04:18 Direct Bilirubin 0.1 mg/dl (0-0.2) 09/20/21 04:18 AST 590 U/L (13-39) H 09/20/21 04:18 ALT 139 U/L (7-52) H 09/20/21 04:18 Alkaline Phosphatase 78 U/L (34-104) 09/20/21 04:18 Troponin I High Sens > 52763.0 pg/ml (0-20) H* D 09/20/21 10:21 Total Protein 4.7 gm/dl (6.0-8.3) L D 09/20/21 04:18 Albumin 3.0 gm/dl (3.4-5.0) L 09/20/21 04:18 Globulin 1.7 gm/dl (2.5-4.0) L 09/20/21 04:18 Albumin/Globulin Ratio 1.8 (0.9-2) 09/20/21 04:18 Nasal Screen MRSA (PCR) Negative (Negative) 09/20/21 Unknown SARS-CoV-2 (PCR) NEGATIVE (Negative) 09/20/21 03:00 Influenza Type A (PCR) Negative (Neg) 09/20/21 03:00 Influenza Type B (PCR) Negative (Neg) 09/20/21 03:00 RSV (RT-PCR) Negative (Neg) 09/20/21 03:00 Blood Type A Positive 09/20/21 04:18 Antibody Screen NEGATIVE 09/20/21 04:[address] 09/20/21 00:20 CT head/brain wo con CLINICAL HISTORY: 75 years-old Male with ams. Acute cardiac arrest TECHNIQUE: Multiple axial CT images of the head were obtained without contrast. A dose lowering technique was utilized adhering to the principles of ALARA. CT DOSE: 1382.10 mGy.cm COMPARISON: Fluoroscopic cardiac catheterization images of same day at 12:08 AM FINDINGS: No acute intracranial hemorrhage, midline shift, intracranial mass, hydrocephalus, territorial ischemia or abnormal extra-axial collection. Evaluation for acute intraparenchymal hemorrhage is limited secondary to IV contrast. The study is mildly motion degraded. Mild white matter hypodensities suggest chronic microvascular ischemic disease. The calvarium is intact. The paranasal sinuses, mastoid air cells, and middle ear cavities are clear. IMPRESSION: No acute intracranial abnormality. ACT 112: Negative or not required by law. The above report was generated using voice recognition software. It may contain grammatical, syntax or spelling errors. Electronically signed by: Kai Edward M.D. 09/20/2021 7:33 AM Chest X-Ray 09/20/21 03:31 XR chest 1V portable HISTORY: 75 years-old Male hypoxia, hemoptysis acute hypoxia COMPARISON: Chest radiograph of same day at 1:04 AM TECHNIQUE: Portable AP view of the chest FINDINGS: The cardiac silhouette is normal in size. Endotracheal tube overlies the midline, 3.1 cm superior to the annette. IVC catheter distal tip overlies the right atrium. No pneumothorax or large pleural effusion. Interstitial coarsening with extensive mid upper lung zone predominant airspace opacities have progressively worsened since the prior study. Bones appear grossly intact. IMPRESSION: 1. Endotracheal and central venous catheter placement as above. 2. Extensive progressively worsened mixed interstitial and alveolar opacities of the mid to upper lung zones. Aspiration, ARDS versus pulmonary edema considered. ACT 112: Negative or not required by law. The above report was generated using voice recognition software. It may contain grammatical, syntax or spelling errors. Electronically signed by: Kai Edward M.D. 09/20/2021 6:59 AM Supervising Physician Co-Signing Physician Notes Resident Physician Supervision Note: I independently interviewed and examined the patient and verified the green history and physical, reviewed labs and image studies and agree with resident Dr. Husam Lee findings and care plan. Resident Activity Tracking Resident Involvement: Resident Care Provided Care Provided: Adult Hospital Medicine
--- NOTE | 2021-09-20 09:08 | Cardiology Consultation ---
Date of Consultation September 20, 2021 Assessment & Plan (1) ST elevation (STEMI) myocardial infarction: (2) Cardiac arrest: (3) Cardiomyopathy: 1. STEMI: He had acceptable reperfusion with intervention, however he is left with poor left ventricular function 2. Cardiac arrest: He had an out of hospital cardiac arrest as well as ventricular fibrillation in the laboratory, presumably this was due to acute NH and ischemia. He would qualify for an ICD if he survives this event and goes on to have left ventricular dysfunction. I would not do anything different now, the majority of his ischemia should have been treated with his intervention. 3. Cardiomyopathy: He probably had a large anterolateral myocardial infarction based on his electrocardiogram so it is unclear how much improvement he will get his left ventricular function. That is often hard to predict. There is little that can be done now however if he recovers hemodynamically may need to add standard heart failure medications. History of Present Illness Reason for Consultation: Out of hospital cardiac arrest Attending Physician: Kendrick Hernandez MD, PhD History of Present Illness Chart reviewed and patient examined. Events of the last 24 hours reviewed. In brief this is a 75-year-old male who presented to the emergency room following out of hospital arrest with resuscitation. This occurred at home and he was found unresponsive. CPR was initiated and AED shocks were delivered and he was intubated in the field. He is reported to have been describing chest discomfort for several days but had not sought medical attention. Initial electrocardiography demonstrated an irregular wide-complex rhythm of uncertain origin but suggestive of an acute anterolateral myocardial infarction. He therefore was taken urgently to the [facility]. In the [facility] he was found to have a distal left main stenosis and thrombus as well as a subtotal ostial LAD stenosis. There was also circumflex and right coronary artery disease. He underwent PCI of the left main and LAD with a good angiographic result. During the catheterization he did have arrest and required epinephrine and defibrillation. He was admitted to the intensive care unit intubated and sedated. He did have some hemoptysis from the endotracheal tube. He was maintained on pressors, amiodarone and this morning his blood pressure appears adequate. Post intervention electrocardiography shows a large anterior myocardial infarction with underlying atrial fibrillation. His troponin was elevated on presentation but only to 338, he did have an elevated blood sugar on presentation which has increased subsequently. There was evidence of kidney disease on presentation and liver function tests have increased significantly suggesting shock liver. He is intubated, sedated unresponsive. Allergies Allergy/AdvReac Type Severity Reaction Status Date / Time No Known Allergies Allergy Unverified 09/20/21 13:26 Home Medications Medication Instructions Recorded Confirmed Type Unobtainable 09/20/21 09/20/21 History Patient History Social History Smoking Status: Unknown if ever smoked Hx Alcohol Use: No Hx Substance Use: No Preferred Language: Macanese Communication Ability: Unable Outside Plant Technician Required: No Beliefs That Will Affect Care: None marital status: Current Living Situation: Spouse Current Living Situation Comment: [place] WITH SPOUSE Other Information That Helps Us Care for You: No Review of Systems Review of Systems: Unobtainable due to cognitive status Physical Exam Physical Exam: Constitutional: He is intubated and nonresponsive. Neck: No jugular venous distention, carotid pulses are weak but equal bilaterally without bruits. Pulmonary: Clear to auscultation bilaterally. Cardiac: Regular rhythm with no murmur, gallop or rub. Abdomen: Soft, nontender with normal bowel sounds. Extremities: No edema. Neurologic: Essentially no neurologic function Skin: No rash, ecchymoses or petechiae. Results & Data ([facility]) Vital Signs (Past 12 Hours) Vital Signs Temp Temp Temp Pulse Pulse Resp BP 09/20/21 09:03 34.2 C L 34.2 C L 105 H 30 H 09/20/21 08:00 33.7 C L 33.7 C L 105 H 30 H 09/20/21 07:55 103 H 33 H 09/20/21 06:51 33.1 C L 33.2 C L 102 H 30 H 09/20/21 06:50 33.2 C L 109 H 18 09/20/21 06:40 33.0 C L 96 H 19 09/20/21 06:30 32.9 C L 92 H 16 09/20/21 06:23 90 09/20/21 06:20 32.9 C L 93 H 31 H 09/20/21 06:10 32.9 C L 83 30 H 09/20/21 06:00 33.0 C L 33.1 C L 32.9 C L 92 H 29 H 09/20/21 05:50 33.3 C L 76 21 09/20/21 05:40 33.6 C L 83 22 09/20/21 05:30 33.9 C L 83 18 09/20/21 05:20 34.2 C L 82 17 09/20/21 05:10 34.5 C L 80 16 09/20/21 05:00 34.8 C L 35.1 C L 34.8 C L 87 15 09/20/21 04:50 35.1 C L 84 18 09/20/21 04:40 35.5 C L 84 22 09/20/21 04:35 30 H 09/20/21 04:30 35.8 C L 90 15 09/20/21 04:20 36.2 C L 96 H 18 09/20/21 04:10 36.5 C 92 H 17 09/20/21 04:00 36.8 C 36.8 C 36.8 C 97 H 25 H 09/20/21 03:30 36.9 C 122 H 27 H 09/20/21 03:10 125 H 30 H 09/20/21 03:07 125 H 31 H 147/111 H 09/20/21 03:05 36.8 C 95 H 95 H 29 H 09/20/21 00:30 112 H 26 H 09/20/21 00:17 113 H 106/76 09/20/21 00:16 113 H 26 H 09/20/21 00:10 114 H 28 H BP BP Pulse Ox 09/20/21 09:03 80/51 L 113/61 93 09/20/21 08:00 100/63 103/60 86 L 09/20/21 07:55 83 L 09/20/21 06:51 87/47 L 92 09/20/21 06:50 94 09/20/21 06:40 89 L 09/20/21 06:30 87 L 09/20/21 06:23 09/20/21 06:20 87 L 09/20/21 06:10 09/20/21 06:00 77/60 L 89 L 09/20/21 05:50 89 L 09/20/21 05:40 74 L 09/20/21 05:30 91 09/20/21 05:20 85 L 09/20/21 05:10 82 L 09/20/21 05:00 77/43 L 87 L 09/20/21 04:50 75 L 09/20/21 04:40 76 L 09/20/21 04:35 80 L 09/20/21 04:30 73 L 09/20/21 04:20 79 L 09/20/21 04:10 77 L 09/20/21 04:00 94/76 L 71 L 09/20/21 03:30 71 L 09/20/21 03:10 73 L 09/20/21 03:07 79 L 09/20/21 03:05 147/111 H 68 L 09/20/21 00:30 95 09/20/21 00:17 98 09/20/21 00:16 09/20/21 00:10 99 PG Care Time/CCT Total # of Minutes Spent Total Time Spent with Patient: Total time spent is greater than 50% in coordination of care (as documented) at patient's floor/unit and/or counseling patient: Coding Level of Care Code 34573 Inpt Consult Level [address] elevation (STEMI) myocardial infarction I21.3 Cardiac arrest I46.9 Cardiomyopathy I42.9
[2021-09-20] MEDS ORDERED: PERFLUTREN LIPID MICROSPHERE (DEFINITY) IV ONE (09:16)
[2021-09-20] MEDS ORDERED: POTASSIUM ACETATE IV ONE (10:00)
[2021-09-20] MEDS ORDERED: SODIUM CHLORIDE 0.9% IV ONE (10:00)
[2021-09-20] MEDS: ATORVASTATIN 40 MG TAB PO SCH (10:15)
[2021-09-20 10:29] LABS: iSTAT Art Bld Gas pCO2 Correct 43 mmHg (35-46); iSTAT Art Bld Gas pH Corrected 7.302 (7.35-7.45); iSTAT Arterial Blood Gas HCO3 22 meg/L (19-24); iSTAT Arterial Blood Gas pCO2 49 mmHg (35-46); iSTAT Arterial Blood Gas pH 7.26 (7.35-7.45); iSTAT Arterial Blood Gas pO2 70 mmHg (80-95); iSTAT Arterial Blood Gas pO2 C 57; iSTAT Carbon Dioxide 24 mmol/L (24-31); iSTAT FiO2 100 %; iSTAT Hematocrit 36 % (42-52); iSTAT Hemoglobin 12.2 g/dl (14.0-18.0); iSTAT Potassium 2.9 mmol/L (3.3-5.0); iSTAT Site Art Line; iSTAT Sodium 136 mmol/L (135-144)
[2021-09-20 10:45] LABS: INR 1.4 (0.9-1.1); Partial Thromboplastin Time 27.8 Seconds (21.0-31.0); Prothrombin Time 14.6 Seconds (9.0-12.0)
[2021-09-20] MEDS: PHENYLEPHRINE HCL 100 MG in SODIUM CHLORIDE 0.9% 240 ML IV SCH ×4 (10:46→22:12)
[2021-09-20] MEDS: NOREPINEPHRINE/D5W 32 MG/250 ML BAG IV SCH (10:47)
--- NOTE | 2021-09-20 11:01 | Electroencephalogram ---
EEG Procedure Note Date of Service September 20, 2021 Start / End Times Start Time: 10:29 AM End Time: 10:[address] Emigdio Murray History Cardiac arrest, code Arctic Home Medication List Medication Instructions Recorded Confirmed Type Unobtainable 09/20/21 09/20/21 History Inpatient Medication List Aspirin (Aspirin 81 Mg Ectab) 81 mg PO QAWW [facility] [place] Stop: 10/20/21 08:59 Last Admin: 09/20/21 07:56 Dose: Not Given Documented by: [id number] Atorvastatin Calcium (Atorvastatin 40 Mg Tab) 40 mg PO [facility] Stop: 10/20/21 08:59 Last Admin: 09/20/21 10:15 Dose: Not Given Documented by: [id number] Midazolam HCl (Versed) 125 mg in 250 mls @ 4 mls/hr IV .[id number] NICOLE; Protocol Stop: 10/20/21 03:44 Last Titration: 09/20/21 09:45 Dose: 2 mg/hr, 4 mls/hr Documented by: [id number] Cosigned by: [id number] Titration: 09/20/21 07:59 Dose: 4 mg/hr, 8 mls/hr Documented by: [id number] Cosigned by: [id number] Titration: 09/20/21 07:14 Dose: 2 mg/hr, 4 mls/hr Documented by: [id number] Cosigned by: [id number] Admin: 09/20/21 04:08 Dose: 2 mg/hr, 4 mls/hr Documented by: [id number] Cosigned by: [id number] Fentanyl Citrate (Fentanyl Citrate) 2,500 mcg in 250 mls @ 10 mls/hr IV .Q25H NICOLE; Protocol Stop: 10/04/21 03:44 Last Titration: 09/20/21 07:13 Dose: 100 mcg/hr, 10 mls/hr Documented by: [id number] Cosigned by: [id number] Titration: 09/20/21 05:26 Dose: 100 mcg/hr, 10 mls/hr Documented by: [id number] Cosigned by: [id number] Admin: 09/20/21 04:08 Dose: 50 mcg/hr, 5 mls/hr Documented by: [id number] Cosigned by: [id number] Insulin Human Regular 250 (units/ Sodium Chloride) 250 mls @ 4.7 mls/hr IV .Q24H NICOLE; Protocol Stop: 10/20/21 05:14 Last Titration: 09/20/21 07:57 Dose: 4.7 units/hr, 4.7 mls/hr Documented by: [id number] Cosigned by: [id number] Titration: 09/20/21 07:13 Dose: 3.9 units/hr, 3.9 mls/hr Documented by: [id number] Cosigned by: [id number] Titration: 09/20/21 06:45 Dose: 3.9 units/hr, 3.9 mls/hr Documented by: [id number] Cosigned by: [id number] Admin: 09/20/21 05:49 Dose: 2.8 units/hr, 2.8 mls/hr Documented by: [id number] Cosigned by: [id number] Sodium Bicarbonate 150 meq/Potassium Acetate 20 meq/Sterile Water 1,160 mls @ 125 mls/hr IV .Q9H17M [facility] Stop: 10/20/21 05:29 Last Admin: 09/20/21 06:19 Dose: 125 mls/hr Documented by: [id number] Amiodarone HCl/Dextrose (Nexterone / D5w) 360 mg in 200 mls @ 16.667 mls/hr IV .Q12H [facility] Stop: 10/20/21 06:29 Last Admin: 09/20/21 06:31 Dose: 0.5 mg/min, 16.7 mls/hr Documented by: [id number] Cosigned by: [id number] Potassium Acetate 40 meq/ (Sodium Chloride) 120 mls @ 80 mls/hr IV ONE ONE Stop: 09/20/21 11:29 Last Admin: 09/20/21 10:15 Dose: 80 mls/hr Documented by: [id number] Insulin Aspart (Insulin Aspart Per Unit) 0 units SC ACHS [facility] Stop: 10/20/21 07:29 Last Admin: 09/20/21 07:55 Dose: Not Given Documented by: [id number] Cosigned by: [id number] Discontinued Medications Adenosine (Adenosine Iv Soln 3 Mg/Ml 2 Ml Vial) Confirm Administered Dose 6 mg IV .STK-MED ONE Stop: 09/20/21 01:46 Last Admin: 09/20/21 04:04 Dose: Not Given Documented by: [id number] Amiodarone HCl/Dextrose (Amiodarone 360mg / 200ml D5w (Ict Business Analyst Use Only)) Confirm Administered Dose 360 mg .ROUTE .Bitglass-MED ONE Stop: 09/20/21 01:01 Last Admin: 09/20/21 02:26 Dose: 360 mg Documented by: [id number] Amiodarone HCl/Dextrose (Amiodarone 360mg / 200ml D5w) Confirm Administered Dose 360 mg IV [place] Stop: 09/20/21 05:10 Last Admin: 09/20/21 05:49 Dose: Not Given Documented by: [id number] Amiodarone HCl (Amiodarone Hcl Inj 50 Mg/Ml 3 Ml Vial (Ict Business Analyst Use Only)) Confirm Administered Dose 150 mg .ROUTE [place] ONE Stop: 09/20/21 00:59 Last Admin: 09/20/21 04:04 Dose: Not Given Documented by: [id number] Eptifibatide (Eptifibatide 2 Mg/Ml 10 Ml Vial (Ict Business Analyst Use Only)) Confirm Ad ministered Dose 40 mg IV [place] ONE Stop: 09/20/21 00:56 Last Admin: 09/20/21 02:25 Dose: 14.6 ml Documented by: [id number] Eptifibatide (Eptifibatide 0.75 Mg/Ml 75mg Vial (Ict Business Analyst Use Only)) Confirm Administered Dose 75 mg .ROUTE .Bitglass-Volusion ONE Stop: 09/20/21 00:56 Last Admin: 09/20/21 02:26 Dose: 75 mg Documented by: [id number] Fentanyl Citrate (Fentanyl Citrate 100 Mcg/2 Ml Vial) Confirm Administered Dose 100 mcg .ROUTE [place] ONE Stop: 09/20/21 00:20 Last Increment: 09/20/21 02:24 Dose: 75 mcg Documented by: [id number] Fentanyl Citrate (Fentanyl Citrate 2,500 Mcg/250 Ml Bag) Confirm Administered Dose 2,500 mcg IV [place] Stop: 09/20/21 03:34 Last Admin: 09/20/21 04:06 Dose: 50 mcg Documented by: [id number] Cosigned by: [id number] Heparin Sodium (Porcine) (Heparin (Porcine) 1000 Unit/Ml 10 Ml (Ict Business Analyst Use Only)) Confirm Administered Dose 10,000 units .ROUTE [place] ONE Stop: 09/20/21 00:20 Last Admin: 09/20/21 02:24 Dose: 7,500 units Documented by: [id number] Heparin Sodium/Sodium Chloride (Heparin In Nss Infusion 1000 Unit/500 Ml (2 U/Ml) Bag) Confirm Administered Dose 3,000 units IV .STK-MED ONE Stop: 09/20/21 00:21 Last Admin: 09/20/21 04:03 Dose: Not Given Documented by: [id number] Sodium Chloride (Nss 1000ml) 1,000 mls @ 125 mls/hr IV .Q8H NICOLE Stop: 10/20/21 00:29 Last Admin: 09/20/21 04:10 Dose: Not Given Documented by: [id number] Phenylephrine HCl 20 mg/ (Dextrose) 502 mls @ 60.24 mls/hr IV .Q8H20M NICOLE; Protocol Stop: 10/20/21 02:00 Last Infusion: 09/20/21 08:29 Dose: 2 mcg/kg/min, 241 mls/hr Documented by: [id number] Cosigned by: [id number] Admin: 09/20/21 08:29 Dose: 2 mcg/kg/min, 241 mls/hr Documented by: [id number] Cosigned by: [id number] Infusion: 09/20/21 07:13 Dose: 2 mcg/kg/min, 241 mls/hr Documented by: [id number] Cosigned by: [id number] Admin: 09/20/21 06:31 Dose: 2 mcg/kg/min, 241 mls/hr Documented by: [id number] Cosigned by: [id number] Infusion: 09/20/21 06:10 Dose: 2 mcg/kg/min, 241 mls/hr Documented by: [id number] Cosigned by: [id number] Admin: 09/20/21 04:05 Dose: 2 mcg/kg/min, 241 mls/hr Documented by: [id number] Cosigned by: [id number] Norepinephrine Bitartrate (Levophed/D5w) 8 mg in 508 mls @ 152.4 mls/hr IV .Q3H20M NICOLE; Protocol Stop: 10/20/21 03:14 Last Titration: 09/20/21 10:14 Dose: 0 mcg/kg/min, 0 mls/hr Documented by: [id number] Titration: 09/20/21 09:43 Dose: 0.5 mcg/kg/min, 152.4 mls/hr Documented by: [id number] Admin: 09/20/21 08:46 Dose: 0.6 mcg/kg/min, 182.9 mls/hr Documented by: [id number] Cosigned by: [id number] Titration: 09/20/21 08:42 Dose: 0.6 mcg/kg/min, 182.9 mls/hr Documented by: [id number] Cosigned by: [id number] Titration: 09/20/21 07:55 Dose: 0.6 mcg/kg/min, 182.9 mls/hr Documented by: [id number] Titration: 09/20/21 07:12 Dose: 0.5 mcg/kg/min, 152.4 mls/hr Documented by: [id number] Cosigned by: [id number] Titration: 09/20/21 05:26 Dose: 0.4 mcg/kg/min, 121.9 mls/hr Documented by: [id number] Admin: 09/20/21 04:05 Dose: 0.1 mcg/kg/min, 30.5 mls/hr Documented by: [id number] Cosigned by: [id number] Parenteral Electrolytes (Plasma-Lyte A) 1,000 mls @ 125 mls/hr IV .Q8H NICOLE Stop: 10/20/21 03:29 Last Infusion: 09/20/21 08:33 Dose: 0 mls/hr Documented by: [id number] Infusion: 09/20/21 06:36 Dose: 0 mls/hr Documented by: [id number] Admin: 09/20/21 04:06 Dose: 125 mls/hr Documented by: [id number] Eptifibatide (Integrilin) 75 mg in 100 mls @ 12.256 mls/hr IV .Q8H10M NICOLE; Protocol Stop: 09/20/21 10:30 Last Infusion: 09/20/21 07:14 Dose: 2.01 mcg/kg/min, 12.3 mls/hr Documented by: [id number] Cosigned by: [id number] Admin: 09/20/21 05:49 Dose: 2 mcg/kg/min, 12.3 mls/hr Documented by: [id number] Cosigned by: [id number] Amiodarone HCl/Dextrose (Nexterone / D5w) 360 mg in 200 mls @ 33.333 mls/hr IV ONE ONE; Protocol Stop: 09/20/21 11:07 Last Admin: 09/20/21 08:33 Dose: 1 mg/min, 33.3 mls/hr Documented by: [id number] Cosigned by: [id number] Calcium Chloride 1,000 mg/ (Dextrose) 60 mls @ 240 mls/hr IV 0530 ONE Stop: 09/20/21 05:44 Last Infusion: 09/20/21 06:31 Dose: 0 mls/hr Documented by: [id number] Admin: 09/20/21 05:50 Dose: 240 mls/hr Documented by: [id number] Potassium Acetate () 20 meq in 110 mls @ 55 mls/hr IV Q2H NICOLE Stop: 09/20/21 09:44 Last Admin: 09/20/21 07:59 Dose: 55 mls/hr Documented by: [id number] Infusion: 09/20/21 07:55 Dose: 0 mls/hr Documented by: [id number] Admin: 09/20/21 05:50 Dose: 55 mls/hr Documented by: [id number] Insulin Human Regular 3 units/ (Syringe) 3 mls @ 0 mls/min IV 0545 ONE Stop: 09/20/21 05:46 Last Admin: 09/20/21 05:50 Dose: 1 mls/min Documented by: [id number] Cosigned by: [id number] Lidocaine HCl (Lidocaine 1% Local 20 Ml Vial) Confirm Administered Dose 20 ml .ROUTE .STK-MED ONE Stop: 09/20/21 00:28 Last Admin: 09/20/21 04:03 Dose: Not Given Documented by: [id number] Midazolam HCl (Midazolam Hcl 1 Mg/Ml 2ml Vial) Confirm Administered Dose 2 mg .ROUTE .STK-MED ONE Stop: 09/20/21 00:20 Last Admin: 09/20/21 02:25 Dose: 2 mg Documented by: [id number] Midazolam HCl (Midazolam Hcl 1 Mg/Ml 2ml Vial) Confirm Administered Dose 2 mg .ROUTE .STK-MED ONE Stop: 09/20/21 00:52 Last Increment: 09/20/21 02:25 Dose: 1 mg Documented by: [id number] Midazolam HCl (Midazolam Hcl 125mg/250ml D5w) Confirm Administered Dose 125 mg .ROUTE .STK-MED ONE Stop: 09/20/21 03:34 Last Admin: 09/20/21 04:07 Dose: 2 mg Documented by: [id number] Cosigned by: [id number] Miscellaneous (Eptifibatide (Integrilin) Infusion Stop Order) 1 ea N/A 1030 ONE Stop: 09/20/21 10:31 Last Admin: 09/20/21 10:15 Dose: 1 ea Documented by: [id number] Nicardipine HCl (Nicardipine Hcl Inj 2.5 Mg/Ml 10 Ml Amp) Confirm Administered Dose 25 mg .ROUTE .STK-MED ONE Stop: 09/20/21 00:20 Last Admin: 09/20/21 04:02 Dose: Not Given Documented by: [id number] Nitroglycerin/Dextrose (Nitroglycerin/D5w 100mcg/Ml 20ml Syr) Confirm Administered Dose 2,000 mcg .ROUTE .STK-MED ONE Stop: 09/20/21 00:21 Last Admin: 09/20/21 04:03 Dose: Not Given Documented by: [id number] Norepinephrine Bitartrate (Norepinephrine Bitartrate 1 Mg/Ml 4 Ml Vial (Ict Business Analyst Use Only)) Confirm Administered Dose 8 mg .ROUTE .STK-MED ONE Stop: 09/20/21 01:05 Last Admin: 09/20/21 02:26 Dose: 8 mg Documented by: [id number] Perflutren Lipid Microsphere (Perflutren Lipid Microsphere (Definity)) 2 ml IV ONCE ONE Stop: 09/20/21 09:17 Last Admin: 09/20/21 09:17 Dose: 2 ml Documented by: [id number] Phenylephrine HCl (Phenylephrine Hcl Inj 10 Mg/Ml Vial (Ict Business Analyst Use Only)) Confirm Administered Dose 10 mg .ROUTE .STK-MED ONE Stop: 09/20/21 01:05 Last Admin: 09/20/21 04:04 Dose: Not Given Documented by: [id number] Phenylephrine HCl (Phenylephrine Hcl Inj 10 Mg/Ml Vial (Ict Business Analyst Use Only)) Confirm Administered Dose 10 mg .ROUTE .STK-MED ONE Stop: 09/20/21 01:23 Last Admin: 09/20/21 04:04 Dose: Not Given Documented by: [id number] Sodium Bicarbonate (Sodium Bicarb 8.4% Inj 50 Meq/50 Ml Syr) 50 meq IV NOW STA Stop: 09/20/21 00:31 Last Admin: 09/20/21 04:03 Dose: Not Given Documented by: [id number] Sodium Bicarbonate (Sodium Bicarb 8.4% Inj 50 Meq/50 Ml Syr) 50 meq IV NOW STA Stop: 09/20/21 00:31 Last Admin: 09/20/21 04:03 Dose: Not Given Documented by: [id number] Sodium Bicarbonate (Sodium Bicarbonate 8.4% Inj 50 Meq/50 Ml Vial) Confirm Administered Dose 50 meq .ROUTE .STK-MED ONE Stop: 09/20/21 00:32 Last Admin: 09/20/21 04:03 Dose: Not Given Documented by: [id number] Ticagrelor (Ticagrelor 90 Mg Tab) Confirm Administered Dose 180 mg .ROUTE .STK- MED ONE Stop: 09/20/21 02:38 Last Admin: 09/20/21 04:05 Dose: Not Given Documented by: [id number] Tranexamic Acid (Txa 10% Non-Iv Routes 100 Mg/Ml Vial) 500 mg NEB ONE ONE Stop: 09/20/21 04:24 Last Admin: 09/20/21 04:49 Dose: 500 mg Documented by: [id number] Description This is a 21 electrode EEG with a single channel dedicated to limited EKG. The electrodes were placed in accordance with the International 10-20 system. This EEG was completed in the intensive care unit with the patient on life support and sedatives, code Arctic. There is an unreactive persistent low amplitude background rhythm and a superimposed symmetric, frontally predominant beta rhythm throughout the study. Photic stimulation unremarkable. There is no burst suppression pattern. There are no periodic discharges. There is no focal slowing. There are no epileptiform abnormalities. Interpretation Abnormal awake/drowsy EEG with significant attenuation of the background rhythm and a prominent symmetric frontal beta rhythm suggestive of sedation with anesthetics. There are no epileptiform abnormalities. [facility] EEG Procedure Codes Indication for Procedure (1) Cardiac arrest: (2) Hypothermia, induced: (3) Encephalopathy: Neurology Neurology: 19964 EEG include record awake & drowsy
[2021-09-20 11:08] LABS: BUN Creatinine Ratio 14.5 (10-20); Calcium 7.2 mg/dl (8.5-10.1); Creatinine Clr Calc Pharmacy 44.9 ml/min; Est GFR (African American) 49.2 ml/min; Est GFR (Non-African American) 42.4 ml/min; Magnesium 1.5 mg/dl (1.7-2.4); Potassium 3.1 mmol/L (3.5-5.1)
--- NOTE | 2021-09-20 12:02 | Communication Note ---
Date of Service: September 20, 2021 Received in signout from Jeanine Chacon patient has suffered a cardiac arrest and is undergoing therapeutic hypothermia protocol. He is experiencing acute hypoxic respiratory failure and acute kidney injury. Currently the patient remains acidotic and is on bicarbonate infusion, he has had minimal urine output. I discussed risks and benefits of renal replacement therapy with the patient's , at this time she does not believe he would want to undergo renal replacement therapy in the setting of severe critical illness with concern for significant anoxic brain injury. 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 We will undergo repeat bronchoscopy today to further clarify whether there is continued bleeding possibly from the upper airways which may require intervention. We are maximally concentrating the patient's medication infusions to limit volume administration. We have continued to increase vasoactive medication requirements. I have personally spent 45 minutes of critical care time in the direct management of this patient. This is a life/limb threatening event. This includes time spent evaluating patient, direct bedside care, chart review, placing orders, interpretation of diagnostic studies, discussion with consultants, patient, and/or family members regarding treatment decisions, as well as other required patient management activities. This time is exclusive of all separately billable procedures, and teaching time and separate from and in addition to any other critical care service time. Coding Level of Care Code Critical Care ayesha gregoriot'l 30 min
--- NOTE | 2021-09-20 12:06 | Procedure Note ---
Procedure Note Date of Service September 20, 2021 Note Procedure date: Noted above Procedure: fiberoptic bronchoscopy Pre-procedure indication: Severe hypoxic respiratory failure low oxygen saturation with 100% FiO2 Post-procedure Diagnosis: same as above Prior to Procedure: Informed Consent: Emergent consent implied Attending Staff: Dayami Murray DO Resident/APC: Not applicable Skin Prep: Not applicable Anesthesia: Continuous infusion The identity of the patient was confirmed and a bedside time out was performed. Description of Procedure: Fiberoptic bronchoscopy was performed via endotracheal tube. Serial bronchioalveolar lavage of the right lower lobe was performed. Findings included: No evidence of diffuse alveolar hemorrhage. The endotracheal tube was retracted 4 cm and the upper airway was examined for evidence of trauma. The airways were globally erythematous however there was not 1 specific area of bleeding. Complications: None Specimens: None Estimated blood loss: Zero Coding CPT Codes Pulmonary/Thoracic - Pulmonary and Thoracic: 38170 Dx bronchoscopy/wash ([id number]) [facility] [place]arges) Pulmonary/Thoracic Procedure 1: Pulmonary and Thoracic: 29547 Dx bronchoscopy/wash
[2021-09-20] MEDS: ASPIRIN 81 MG CHEW PO SCH (12:24)
[2021-09-20] MEDS: PANTOprazole 40 MG in SYRINGE 0 ML IV SCH (12:24)
[2021-09-20] MEDS: TICAGRELOR 90 MG TAB PO SCH ×2 (12:48→21:36)
[2021-09-20 14:25] LABS: Calcium 7.3 mg/dl (8.5-10.1); Creatinine Clr Calc Pharmacy 38.6 ml/min; Est GFR (Non-African American) 35.3 ml/min; Potassium 3.1 mmol/L (3.5-5.1)
[2021-09-20] MEDS ORDERED: STAT IV STA (15:10)
[2021-09-20] MEDS ORDERED: CALCIUM GLUCONATE 10% 1,000 MG in DEXTROSE 5% 50 ML IV ONE (15:15)
[2021-09-20] MEDS: VASOPRESSIN 20 UNITS in 0.9 % SODIUM CHLORIDE 100 ML IV SCH ×2 (15:26→19:39)
[2021-09-20] MEDS ORDERED: POTASSIUM ACETATE/NSS 20 MEQ/110 ML BAG IV SCH (15:30)
--- NOTE | 2021-09-20 15:40 | XCELERA ---
[id number]
[2021-09-20] MEDS ORDERED: SODIUM BICARB 8.4% INJ 50 MEQ/50 ML SYR IV ONE (15:58)
[2021-09-20] MEDS: POTASSIUM ACETATE 20 MEQ in 0.9 % SODIUM CHLORIDE 100 ML IV SCH ×2 (16:06→18:14)
[2021-09-20] MEDS ORDERED: MEPERIDINE HCL 25 MG/ML CARP/VIAL IV PRN (16:17)
[2021-09-20] MEDS: MAGNESIUM SULFATE / D5W 1 GM/100 ML BAG IV SCH ×3 (16:42→20:52)
[2021-09-20 16:51] LABS: iSTAT Art Bld Gas pCO2 Correct 52 mmHg (35-46); iSTAT Art Bld Gas pH Corrected 7.255 (7.35-7.45); iSTAT Arterial Blood Gas HCO3 24 meg/L (19-24); iSTAT Arterial Blood Gas pCO2 60 mmHg (35-46); iSTAT Arterial Blood Gas pH 7.21 (7.35-7.45); iSTAT Arterial Blood Gas pO2 81 mmHg (80-95); iSTAT Arterial Blood Gas pO2 C 67; iSTAT Carbon Dioxide 26 mmol/L (24-31); iSTAT FiO2 90 %; iSTAT Hematocrit 39 % (42-52); iSTAT Hemoglobin 13.3 g/dl (14.0-18.0); iSTAT Potassium 3.2 mmol/L (3.3-5.0); iSTAT Site Art Line; iSTAT Sodium 139 mmol/L (135-144)
[2021-09-20 17:58] LABS: INR 1.3 (0.9-1.1); Partial Thromboplastin Ratio 0.9; Partial Thromboplastin Time 26.1 Seconds (21.0-31.0); Prothrombin Time 13.5 Seconds (9.0-12.0)
[2021-09-20 18:19] LABS: BUN Creatinine Ratio 12.1 (10-20); Calcium 7.9 mg/dl (8.5-10.1); Creatinine Clr Calc Pharmacy 35.9 ml/min; Est GFR (African American) 37.5 ml/min; Est GFR (Non-African American) 32.4 ml/min; Magnesium 1.7 mg/dl (1.7-2.4); Potassium 3.6 mmol/L (3.5-5.1)
[2021-09-20] MEDS ORDERED: TICAGRELOR 90 MG TAB PO SCH (21:00)
[2021-09-20 23:21] LABS: Anion Gap 15 (3-11); BUN Creatinine Ratio 12.4 (10-20); Blood Urea Nitrogen 28 mg/dl (6-23); Calcium 7.7 mg/dl (8.5-10.1); Carbon Dioxide 22 mmol/L (21-32); Chloride 99 mmol/L (98-107); Creatinine Clr Calc Pharmacy 31.7 ml/min; Est GFR (African American) 32.3 ml/min; Est GFR (Non-African American) 27.9 ml/min; Glucose 116 mg/dl (70-99(Fasting)); INR 1.2 (0.9-1.1); Magnesium 2.6 mg/dl (1.7-2.4); Partial Thromboplastin Time 26.8 Seconds (21.0-31.0); Potassium 4.1 mmol/L (3.5-5.1); Prothrombin Time 13.1 Seconds (9.0-12.0); Sodium 136 mmol/L (136-145)
[2021-09-20 23:46] LABS: Troponin I High Sensitivity > 27027.0 pg/ml (0-20)
[2021-09-20 23:49] LABS: iSTAT Art Bld Gas pCO2 Correct 48 mmHg (35-46); iSTAT Art Bld Gas pH Corrected 7.242 (7.35-7.45); iSTAT Arterial Blood Gas HCO3 21 meg/L (19-24); iSTAT Arterial Blood Gas pCO2 54 mmHg (35-46); iSTAT Arterial Blood Gas pO2 83 mmHg (80-95); iSTAT Arterial Blood Gas pO2 C 70; iSTAT Carbon Dioxide 23 mmol/L (24-31); iSTAT FiO2 80 %; iSTAT Hematocrit 36 % (42-52); iSTAT Hemoglobin 12.2 g/dl (14.0-18.0); iSTAT Potassium 4.1 mmol/L (3.3-5.0); iSTAT Site Art Line; iSTAT Sodium 136 mmol/L (135-144)
[2021-09-21] MEDS ORDERED: CALCIUM CHLORIDE 10% 1,000 MG in DEXTROSE 5% 50 ML IV STA ×2 (00:03→20:20)
[2021-09-21] MEDS: PHENYLEPHRINE HCL 100 MG in SODIUM CHLORIDE 0.9% 240 ML IV SCH ×11 (00:23→20:40)
[2021-09-21] MEDS: fentaNYL citrate 2,500 MCG/250 ML BAG IV SCH (00:23)
[2021-09-21] MEDS: VASOPRESSIN 20 UNITS in 0.9 % SODIUM CHLORIDE 100 ML IV SCH ×3 (02:56→20:10)
[2021-09-21 05:09] LABS: iSTAT Art Bld Gas pCO2 Correct 47 mmHg (35-46); iSTAT Art Bld Gas pH Corrected 7.224 (7.35-7.45); iSTAT Arterial Blood Gas HCO3 20 meg/L (19-24); iSTAT Arterial Blood Gas pCO2 52 mmHg (35-46); iSTAT Arterial Blood Gas pH 7.19 (7.35-7.45); iSTAT Arterial Blood Gas pO2 105 mmHg (80-95); iSTAT Arterial Blood Gas pO2 C 91; iSTAT Carbon Dioxide 21 mmol/L (24-31); iSTAT FiO2 80 %; iSTAT Hematocrit 35 % (42-52); iSTAT Hemoglobin 11.9 g/dl (14.0-18.0); iSTAT Potassium 4.8 mmol/L (3.3-5.0); iSTAT Site Art Line; iSTAT Sodium 134 mmol/L (135-144)
[2021-09-21] MEDS: NOREPINEPHRINE/D5W 32 MG/250 ML BAG IV SCH ×2 (05:16→19:05)
[2021-09-21 05:23] LABS: Basophils # (auto) 0.01 K/uL (0-0.2); Basophils % (auto) 0.1 %; Hematocrit (blood only) 36.5 % (42-52); Hemoglobin 12.3 g/dL (14.0-18.0); Immature Granulocytes # (auto) 0.07 K/uL (0.00-0.02); Immature Granulocytes % (auto) 0.4 %; Lymphocytes # (auto) 0.76 K/uL (1.2-3.4); Lymphocytes % (auto) 3.9 %; Mean Corpuscular Hemoglobin 29.6 pg (25-34); Mean Corpuscular Hgb Conc 33.7 g/dL (32-36); Mean Platelet Volume 10.3 fL (7.4-10.4); Monocytes # (auto) 1.69 K/uL (0.11-0.59); Monocytes % (auto) 8.6 %; Neutrophils # (auto) 17.06 K/uL (1.4-6.5); Platelet Count 289 K/uL (130-400); RDW Coefficient of Variation 13.1 % (11.5-14.5); RDW Standard Deviation 42.3 fL (36.4-46.3); Red Blood Count 4.15 M/uL (4.7-6.1); White Blood Count 19.59 K/uL (4.8-10.8)
[2021-09-21 05:47] LABS: INR 1.3 (0.9-1.1); Prothrombin Time 13.6 Seconds (9.0-12.0)
[2021-09-21 06:05] LABS: Alanine Aminotransferase 226 U/L (7-52); Alkaline Phosphatase 67 U/L (34-104); Anion Gap 17 (3-11); Aspartate Aminotransferase 532 U/L (13-39); Bilirubin Direct 0.2 mg/dl (0-0.2); Bilirubin,Total 0.6 mg/dl (0.2-1.0); Blood Urea Nitrogen 30 mg/dl (6-23); Calcium 7.9 mg/dl (8.5-10.1); Carbon Dioxide 20 mmol/L (21-32); Chloride 98 mmol/L (98-107); Creatinine Clr Calc Pharmacy 30.7 ml/min; Est GFR (African American) 28.6 ml/min; Est GFR (Non-African American) 24.7 ml/min; Glucose 115 mg/dl (70-99(Fasting)); Magnesium 2.3 mg/dl (1.7-2.4); Phosphorus 8.1 mg/dl (2.5-4.9); Potassium 4.8 mmol/L (3.5-5.1); Sodium 135 mmol/L (136-145); Total Protein 4.7 gm/dl (6.0-8.3); Troponin I High Sensitivity > 27027.0 pg/ml (0-20)
[2021-09-21] MEDS: INSULIN REGULAR 250 UNITS in SODIUM CHLORIDE 0.9% 247.5 ML IV SCH (06:13)
[2021-09-21] MEDS: AMIODARONE / D5W 360 MG/200 ML BAG IV SCH (06:14)
[2021-09-21] MEDS: INSULIN ASPART PER UNIT SC SCH ×2 (07:51→11:46)
[2021-09-21] MEDS: TICAGRELOR 90 MG TAB PO SCH ×2 (07:52→20:11)
[2021-09-21] MEDS: ASPIRIN 81 MG CHEW PO SCH (07:53)
[2021-09-21] MEDS: ATORVASTATIN 40 MG TAB PO SCH (08:11)
--- NOTE | 2021-09-21 08:58 | XRay Report ---
SINGLE VIEW CHEST CLINICAL HISTORY: Respiratory failure. FINDINGS: 2 AP, portable, upright chest radiographs are compared to study dated 09/20/2021. The examina tion is degraded by portable technique and patient rotation. Endotracheal and enteric tubes are uncha nged in position. The cardiomediastinal silhouette is unremarkable. Multifocal airspace opacities are again seen throughout both lungs. This has modestly cleared as compared to yesterday. A small right pleural effusion is suspected. No pneumothorax is seen. The bony thorax is grossly intact. Retained I V contrast is noted within the renal parenchyma in the upper abdomen. A central venous catheter is pr esent from a transabdominal approach. The tip projects over the right atrium. IMPRESSION: 1. Extensive bilateral airspace opacities have modestly cleared as compared to yesterday. The appeara nce suggests improving pulmonary edema. Correlate clinically for evidence of a superimposed infectiou s/inflammatory pneumonitis. 2. Suspect a small right pleural effusion. 3. Stable lines and tubes. 4. There is retained IV contrast within the renal cortex noted in the upper abdomen. This can be seen with acute renal injury and clinical correlation will be required. ACT 112: Negative or not required by law. Electronically signed by: Scott Carmen M.D. 09/21/2021 8:56 AM
--- NOTE | 2021-09-21 09:42 | Critical Care Progress Note ---
Date of Service September 21, 2021 Assessment & Plan (1) Admitted to intensive care unit: Plan: Reason Critically Ill: 75-year-old male status post cardiac arrest with ROSC who underwent drug-eluting stent placement x2 requiring ongoing hemodynamic management as well as ventilatory support. 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 Without purposeful movement and degree of down time, neurological recovery at this time seems bleak. CARDIAC/VASCULAR - * V Tach/V fib cardiac arrest w/ ROSC who is s/p LUDWIG x2: * Initally w/ down time of ~10-20 min until ROSC. Received Defib x3, Epi x3, Amio push, Bicarb during initial resuscitation. * Arrested second time during cath for ~10-15 min. * Currently on Levo/Ahmet gtts. * Amio drip Stopping for bradycardia * Brilinta * TTM return to normal today * Monitor on telemetry. RESPIRATORY - * Respiratory Failure: * 2/2 Cardiac arrest. * Hemoptysis:improving * Likely related to CPR GI/NUTRITION - * OGT in place. * Prophylaxis: Protonix RENAL/LYTES - * PRATEEK: * Continue serial BMP * Hypokalemia: resolved * Hyperkalemia * possible shifts in rewarming. * may require CRRT vs medical treatment - * Vera in place - Strict I&Os. ENDO - * Hyperglycemia: * BSGs per unit protocol. ISS --> gtt per unit policy. HEME - * Stable H&H * Heparin 5K every 8 hours ID - * No previous sequela of symptoms to suggest underlying infectious causes. LINES/IV ACCESS - * PIVs x1 * RIGHT Femoral CVL placed 09/19 * RIGHT Femoral A line placed 09/19 - Discontinue femoral sheath today, replace with radial arterial line * ETT * OGT * Vera DVT PROPHYLAXIS - * heparin subq * SCDs I have personally spent 120 minutes of critical care time in the direct management of this patient. This is a life/limb threatening event. This includes time spent evaluating patient, direct bedside care, chart review, placing orders, interpretation of diagnostic studies, discussion with consultants, patient, and family members, as well as other required patient management activities. This time is exclusive of all separately billable procedures, and teaching time and separate from and in addition to any other critical care service time. Update 1600: EKG obtained for morphology change on bedside. D/W Dr. Sims, will get input from family. Discussed risks and benefits with family, no significant adverse findings on neuroimaging at this time. Continue aggressive care at this time since there is no significant indication of significant neurologic injury at the present time discussed with Dr. Sims will place Impella, [facility] requesting right heart cath with Sabula placement. Repeat BMP pending, metabolic acidosis, hypoxia improving slightly RR 24 60% [id number] peep 12 (2) Cardiac arrest: (3) ST elevation (STEMI) myocardial infarction: (4) Dysrhythmia: Admission and Anticipated Discharge Date Admission Date: September 20, 2021 Supervising Physician Co-Signing Physician Notes D/W [facility] CCM and Cardiology CCM: Long Cards: [facility]irman; Cardiology accepting Subjective Finished rewarming protocol. Continued minimal urine output Review of Systems Review of Systems: Unobtainable due to endotracheal tube Results & Data Results & Data ([facility]) Vital Signs (Past 12 Hours) Vital Signs Temp Temp Temp Pulse Resp BP BP 09/21/21 08:30 36.3 C L 55 L 24 09/21/21 08:00 35.7 C L 36.2 C L 36.3 C L 60 24 09/21/21 07:30 35.2 C L 60 23 09/21/21 07:21 71 26 H 09/21/21 07:00 35.4 C L 36.2 C L 36.3 C L 54 L 22 09/21/21 06:30 35.4 C L 57 L 22 09/21/21 06:01 34.8 C L 61 20 09/21/21 06:00 34.8 C L 35.3 C L 35.4 C L 61 23 09/21/21 05:02 34.1 C L 55 L 23 09/21/21 05:00 34.3 C L 34.3 C L 59 L 26 H 09/21/21 04:00 33.7 C L 34 C L 34 C L 63 27 H 107/64 107/64 09/21/21 03:55 33.6 C L 63 25 H 09/21/21 03:15 54 L 27 H 09/21/21 03:00 34 C L 33.9 C L 51 L 26 H 09/21/21 02:01 34.3 C L 55 L 24 09/21/21 02:00 34.4 C L 34 C L 34.3 C L 56 L 22 09/21/21 01:01 33.2 C L 66 19 102/49 L 09/21/21 01:00 34 C L 34.3 C L 62 24 09/21/21 00:00 34.0 C L 34 C L 33.2 C L 62 24 09/20/21 23:35 70 25 H 09/20/21 23:00 34 C L 33.9 C L 67 27 H 103/58 L 09/20/21 22:31 33.3 C L 64 20 92/62 L 09/20/21 22:01 33.5 C L 63 19 103/53 L 09/20/21 22:00 33.5 C L 34.1 C L 33.3 C L 64 20 09/20/21 21:51 34.4 C L 33.7 C L BP Pulse Ox 09/21/21 08:30 89 L 09/21/21 08:00 115/45 L 93 09/21/21 07:30 96 09/21/21 07:21 95 09/21/21 07:00 124/50 L 95 09/21/21 06:30 91 09/21/21 06:01 09/21/21 06:00 136/51 L 97 09/21/21 05:02 09/21/21 05:00 144/57 H 09/21/21 04:00 140/58 L 96 09/21/21 03:55 98 09/21/21 03:15 94 09/21/21 03:00 116/47 L 100 09/21/21 02:01 97 09/21/21 02:00 109/47 L 99 09/21/21 01:01 98 09/21/21 01:00 109/47 L 99 09/21/21 00:00 120/54 L 98 09/20/21 23:35 98 09/20/21 23:00 128/87 97 09/20/21 22:31 93 09/20/21 22:01 94 05/02/22 22:00 95 09/20/21 21:51 Critical Care Results & Data Vital Signs (Past 12 Hours) Vital Signs Temp Temp Temp Pulse Resp BP Pulse Ox 09/21/21 16:00 37.2 C 82 18 94 09/21/21 15:38 83 27 H 94 09/21/21 15:30 37.2 C 90 25 H 97 09/21/21 15:00 37.3 C 82 25 H 90 09/21/21 14:30 37.2 C 82 25 H 97 09/21/21 14:05 87 28 H 82 L 09/21/21 12:30 68 23 91 09/21/21 12:00 36.9 C 64 25 H 93 09/21/21 11:33 61 25 H 93 09/21/21 11:30 36.5 C 60 25 H 94 09/21/21 11:00 36.7 C 51 L 25 H 94 09/21/21 10:30 37.1 C 54 L 24 88 L 09/21/21 10:00 36.8 C 55 L 22 93 09/21/21 09:30 36.4 C L 54 L 24 93 09/21/21 09:01 36.5 C 52 L 25 H 93 09/21/21 09:00 36.5 C 52 L 24 93 09/21/21 08:30 36.3 C L 55 L 24 89 L 09/21/21 08:00 35.7 C L 36.2 C L 36.3 C L 60 24 115/45 L 93 09/21/21 07:30 35.2 C L 60 23 96 09/21/21 07:21 71 26 H 95 09/21/21 07:00 35.4 C L 36.2 C L 36.3 C L 54 L 22 124/50 L 95 09/21/21 06:30 35.4 C L 57 L 22 91 09/21/21 06:01 34.8 C L 61 20 09/21/21 06:00 34.8 C L 35.3 C L 35.4 C L 61 23 136/51 L 97 09/21/21 05:02 34.1 C L 55 L 23 09/21/21 05:00 34.3 C L 34.3 C L 59 L 26 H 144/57 H Lab & Micro Results (Past 24 Hours) RBC 4.15 M/uL (4.7-6.1) L 09/21/21 WBC 19.59 K/uL (4.8-10.8) H 09/21/21 Hgb 12.3 g/dL (14.0-18.0) L 09/21/21 Hct 36.5 % (42-52) L 09/21/21 MCV 88.0 fL (80-100) 09/21/21 MCH 29.6 pg (25-34) 09/21/21 MCHC 33.7 g/dL (32-36) 09/21/21 RDW Standard Deviation 42.3 fL (36.4-46.3) 09/21/21 RDW Coefficient of Variation 13.1 % (11.5-14.5) 09/21/21 Plt Count 289 K/uL (130-400) 09/21/21 MPV 10.3 fL (7.4-10.4) 09/21/21 Neutrophils (%) (Auto) 87.0 % 09/21/21 Lymphocytes (%) (Auto) 3.9 % 09/21/21 Monocytes # (Auto) 1.69 K/uL (0.11-0.59) H 09/21/21 Eosinophils # (Auto) 0.00 K/uL (0-0.5) 09/21/21 Immature Granulocyte % (Auto) 0.4 % 09/21/21 Neutrophils # (Auto) 17.06 K/uL (1.4-6.5) H 09/21/21 Lymphocytes # (Auto) 0.76 K/uL (1.2-3.4) L 09/21/21 Monocytes # (Auto) 1.69 K/uL (0.11-0.59) H 09/21/21 Eosinophils # (Auto) 0.00 K/uL (0-0.5) 09/21/21 Basophils # (Auto) 0.01 K/uL (0-0.2) 09/21/21 Immature Granulocyte # (Auto) 0.07 K/uL (0.00-0.02) H 09/21/21 Na 133 mmol/L (136-145) L 09/21/21 K 5.9 mmol/L (3.5-5.1) H 09/21/21 Cl 98 mmol/L (98-107) 09/21/21 CO2 17 mmol/L (21-32) L 09/21/21 Anion Gap 18 (3-11) H 09/21/21 BUN 34 mg/dl (6-23) H 09/21/21 Creatinine 3.01 mg/dl (0.6-1.4) H 09/21/21 Estimated GFR ( Amer) 22.7 ml/min 09/21/21 Estimated GFR (Non-Af Amer) 19.6 ml/min 09/21/21 BUN/Creatinine Ratio 11.3 (10-20) 09/21/21 Glu 97 mg/dl (70-99(Fasting)) 09/21/21 Ca 7.6 mg/dl (8.5-10.1) L 09/21/21 Phosphorus Level 8.5 mg/dl (2.5-4.9) H 09/21/21 Total Bilirubin 0.6 mg/dl (0.2-1.0) 09/21/21 Direct Bilirubin 0.2 mg/dl (0-0.2) 09/21/21 AST 532 U/L (13-39) H 09/21/21 ALT 226 U/L (7-52) H 09/21/21 Alkaline Phosphatase 67 U/L (34-104) 09/21/21 TP 4.7 gm/dl (6.0-8.3) L 09/21/21 Albumin 3.0 gm/dl (3.4-5.0) L 09/21/21 Mg 2.2 mg/dl (1.7-2.4) 09/21/21 11:40 09/21/21 Calcium Level 7.6 mg/dl (8.5-10.1) L 09/21/21 11:40 09/21/21 Ionized Calcium 0.96 mmol/L (1.12-1.32) L 09/21/21 10:07 09/21/21 Prothromb Time International Ratio 1.3 (0.9-1.1) H 09/21/21 04:49 09/21/21 Jovan Test NA 09/21/21 16:38 09/21/21 Diagnostic Findings (Past 24 Hours) Chest X-Ray 09/21/21 07:00 SINGLE VIEW CHEST CLINICAL HISTORY: Respiratory failure. FINDINGS: 2 AP, portable, upright chest radiographs are compared to study dated 09/20/2021. The examination is degraded by portable technique and patient rotation. Endotracheal and enteric tubes are unchanged in position. The cardiomediastinal silhouette is unremarkable. Multifocal airspace opacities are again seen throughout both lungs. This has modestly cleared as compared to yesterday. A small right pleural effusion is suspected. No pneumothorax is seen. The bony thorax is grossly intact. Retained IV contrast is noted within the renal parenchyma in the upper abdomen. A central venous catheter is present from a transabdominal approach. The tip projects over the right atrium. IMPRESSION: 1. Extensive bilateral airspace opacities have modestly cleared as compared to yesterday. The appearance suggests improving pulmonary edema. Correlate clinically for evidence of a superimposed infectious/inflammatory pneumonitis. 2. Suspect a small right pleural effusion. 3. Stable lines and tubes. 4. There is retained IV contrast within the renal cortex noted in the upper abdomen. This can be seen with acute renal injury and clinical correlation will be required. ACT 112: Negative or not required by law. Electronically signed by: Scott Carmen M.D. 09/21/2021 8:56 AM Brain MRI 09/21/21 09:35 MRI OF THE BRAIN WITHOUT CONTRAST CLINICAL HISTORY: cardiac arrest COMPARISON STUDY: Head CT September 20, 2021. TECHNIQUE: Utilizing a 1.5 Tameka magnet and dedicated coil, multiplanar, multiecho imaging of the brain was performed without IV contrast. FINDINGS: There is a small 4 mm focus of restricted diffusion within the left cerebellar hemisphere on axial image 7 of 25. Correlation with the ADC map is difficult given its small size however this appears hypointense. This favors a small acute to subacute infarct. A corresponding T2 hyperintense focus is noted on the axial T2-weighted sequence. There is no mass effect. No hemorrhage is present. Ventricular system is unremarkable. Basal cisterns are patent. There are no extra-axial collections. White matter T2 hyperintense foci favor small vessel disease. Flow-voids for the major intracranial vessels are present. No intracranial masses are identified on this unenhanced exam. Small amount of fluid within the bilateral mastoid air cells is present. Secretions within the nasopharynx are likely related to intubation. IMPRESSION: 1. 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 2. Otherwise, no acute intracranial findings. ACT 112: Negative or not required by law. Electronically signed by: Miguel Sheehan M.D. 09/21/2021 2:14 PM I & O Totals 24 Hours 09/20/21 09/21/21 09/22/21 06:59 06:59 06:59 Intake Total 924.788 / 064.645 2958.573 / 6233.573 1188.297 / 1188.297 Output Total 200 / 200 448 / 458 120 / 120 Balance 724.788 / 585.759 8275.573 / 5775.573 1068.297 / 1068.297 Cumulative 09/19/21 23:37 thru 09/21/21 16:50 Intake Total 8346.658 Output Total 768 Balance 7578.658 RT Ventilator Mngmt (Last Documented) Ventilator Ordered Settings Ventilator Support Mode Assist Control 09/21/21 16:00 Respiratory Rate 18 09/21/21 16:00 Ventilator Tidal Volume 535 09/21/21 16:00 Setting Minute Ventilation 12.4 09/21/21 15:38 Ventilator Positive Pressure 12 09/21/21 16:00 Support Setting Positive End Expiratory 12 09/21/21 15:38 Pressure Fraction of Inspired Oxygen 60 09/21/21 16:00 Machine Comment titrated to 80% 09/20/21 23:35 Ventilator - PT Measurements Respiratory Rate 18 Exhaled Tidal Volume 543 Minute Ventilation 12.4 Peak Inspiratory Airway 20 Pressure Plateau Pressure 13 Respiratory Cycle Inspiratory: 1:1.8 Expiratory Ratio Inspiratory Phase Time 0.90 End-Tidal CO2 108 Static Lung Compliance 543.00 Dynamic Lung Compliance 67.88 Normal Static Lung Compliance 49.00 Patient Measurements Comment Setting changes post ABG per TERESO Mariscal Coding Level of Care Code Critical Care ea addt'l 30 min Diagnoses Admitted to intensive care unit Z78.[address] elevation (STEMI) myocardial infarction I21.3 Dysrhythmia I49.9
[2021-09-21] MEDS ORDERED: fentaNYL citrate 100 MCG/2 ML VIAL IV PRN ×2 (09:45)
[2021-09-21] MEDS ORDERED: MIDAZOLAM HCL 1 MG/ML 2ML VIAL IV PRN ×2 (09:45)
[2021-09-21 11:26] LABS: iSTAT Arterial Blood Gas HCO3 18 meg/L (19-24); iSTAT Arterial Blood Gas pCO2 43 mmHg (35-46); iSTAT Arterial Blood Gas pH 7.24 (7.35-7.45); iSTAT Arterial Blood Gas pO2 85 mmHg (80-95); iSTAT Carbon Dioxide 19 mmol/L (24-31); iSTAT FiO2 60 %; iSTAT Site Art Line
[2021-09-21 11:29] LABS: BUN Creatinine Ratio 11.5 (10-20); Calcium 7.6 mg/dl (8.5-10.1); Creatinine Clr Calc Pharmacy 26.7 ml/min; Est GFR (African American) 24.1 ml/min; Est GFR (Non-African American) 20.8 ml/min; Magnesium 2.2 mg/dl (1.7-2.4); Phosphorus 8.2 mg/dl (2.5-4.9)
[2021-09-21 12:39] LABS: BUN Creatinine Ratio 11.3 (10-20); Calcium 7.6 mg/dl (8.5-10.1); Creatinine Clr Calc Pharmacy 25.4 ml/min; Est GFR (African American) 22.7 ml/min; Est GFR (Non-African American) 19.6 ml/min; Magnesium 2.2 mg/dl (1.7-2.4); Phosphorus 8.5 mg/dl (2.5-4.9); Potassium 5.9 mmol/L (3.5-5.1)
[2021-09-21] MEDS ORDERED: HEPARIN SOD 5,000 UNIT/0.5 ML VIAL SQ SCH (14:00)
--- NOTE | 2021-09-21 14:16 | Magnetic Resonance Report ---
MRI OF THE BRAIN WITHOUT CONTRAST CLINICAL HISTORY: cardiac arrest COMPARISON STUDY: Head CT September 20, 2021. TECHNIQUE: Utilizing a 1.5 Tameka magnet and dedicated coil, multiplanar, multiecho imaging of the bra in was performed without IV contrast. FINDINGS: There is a small 4 mm focus of restricted diffusion within the left cerebellar hemisphere o n axial image 7 of 25. Correlation with the ADC map is difficult given its small size however this ap pears hypointense. This favors a small acute to subacute infarct. A corresponding T2 hyperintense foc us is noted on the axial T2-weighted sequence. There is no mass effect. No hemorrhage is present. Bhavesh tricular system is unremarkable. Basal cisterns are patent. There are no extra-axial collections. Whi te matter T2 hyperintense foci favor small vessel disease. Flow-voids for the major intracranial vess els are present. No intracranial masses are identified on this unenhanced exam. Small amount of fluid within the bilateral mastoid air cells is present. Secretions within the nasopharynx are likely rela jackie to intubation. IMPRESSION: 1. 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 2. Otherwise, no acute intracranial findings. ACT 112: Negative or not required by law. Electronically signed by: Miguel Sheehan M.D. 09/21/2021 2:14 PM
[2021-09-21] MEDS: PANTOprazole 40 MG in SYRINGE 0 ML IV SCH (14:28)
--- NOTE | 2021-09-21 14:43 | Hospitalist Progress Note ---
Date of Service September 21, 2021 Assessment & Plan (1) Cardiac arrest: Plan: 75 yo male s/p cardiac arrest with ROSC who underwent drug-eluting stent placement x2 requiring ongoing hemodynamic management as well as ventilatory support. Per has PMHx afib not on anticoagulation. Admitted to ICU for further management. #Cardiac Arrest with V tach/V fib/ID -concerning down time initially in the field of 10-20 min w/ additional down time in mini lab operator of 10-15 min. -achieved ROSC prior to ED arrival, arrested again during catheterization requiring epi and defibrillation -CT head (09/20): no acute findings -MRI brain (09/21): small subacute infarct left cerebellar hemisphere -EEG (09/20): no epileptiform abnormalities -TTM return to normal today -holding versed and fentanyl, available prn -amiodarone gtt d/c'd (09/20) secondary to bradycardia #Acute resp failure sec to cardiac arrest/ID -intubated and sedated in ICU s/p PCI -some hemoptysis from endotracheal tube, improving #STEMI -found on EKG via EMS, taken to mini lab operator upon arrival -minimal risk factors for CAD per 's history -trops 340 --> 27k, cont. to trend -EKG (09/20): ST elevations anterolateral leads -Cath (09/20): left main 70-90% stenosis, LAD ostial 99% stenosis; did arrest with several runs of Vtach during catheterization -s/p drug eluting stents x2 -postintervention echo (09/20): severely reduced LV function, mildly reduced RV function, mild akineses basal segments, akinesis anterolateral wall, mild dyskinesis entire apex -integrillin ggt d/c'd (09/20) -cont. statin, brillinta, aspirin #Cardiogenic shock -IV levo/vasopressin drip #Multiorgan system dysfunction -lactate 8.9 -AST and ALT elevations suggest shock liver/failure -worsening Cr suggest acute renal failure -continue supportive management as per ICU #H/o afib - reports patient takes metoprolol 25mg bid as needed for palpitations, not previously on anticoagulation -EKG (09/20 at 0700): atrial fibrillation -EKG (09/21 at 1200): sinus with 1st degree AV block -holding metoprolol #PRATEEK -Cr 3, baseline unknown, worsening -likely prerenal in setting of cardiac arrest -jordan in place, strict I/Os -bicarb drip for acidosis - d/c'd -IVF d/c'd -recheck am #Hyperglycemia -insulin drip per pharmacy #Hyperkalemia -K 5.9 -IVF+K d/c'd, recheck am LINES/IV ACCESS - * PIVs x1 * RIGHT Femoral CVL placed 09/19 * RIGHT Femoral A line placed 09/19, d/c'd femoral sheath today and replaced with radial arterial line * ETT * OGT * Jordan DVT ppx: heparin 5000 q8h, SCDs FEN/GI: OGT in place, jordan in place GI ppx: protonix Code Status: Conditional, DNR Dispo: ICU status (2) ST elevation (STEMI) myocardial infarction: (3) Afib: Admission and Anticipated Discharge Date Admission Date: September 20, 2021 Supervising Physician Co-Signing Physician Notes Resident Physician Supervision Note: I independently interviewed and examined the patient and verified the green history and physical, reviewed labs and image studies and agree with resident Dr. Lee findings and care plan. Subjective Unable to attain due to condition. at bedside. Review of Systems Review of Systems: Unobtainable due to cognitive status Physical Exam Physical Exam: Constitutional: Vitals as above. HEENT: No scleral injection or discharge. Neck: Trachea midline. Lungs: Clear to auscultation bilaterally on ventilator Cardiac:Tachycardic. No murmurs. Abdomen: Bowel sounds present. Soft, nontender, and nondistended. MSK: No cyanosis. Skin: warm, dry. Neurologic: Pupils not reactive but equal. Sedated. Results & Data Results & Data ([facility]) Vital Signs (Past 12 Hours) Vital Signs Temp Temp Temp Pulse Resp BP BP 09/21/21 11:33 61 25 H 09/21/21 11:30 36.5 C 60 25 H 09/21/21 11:00 36.7 C 51 L 25 H 09/21/21 10:30 37.1 C 54 L 24 09/21/21 10:00 36.8 C 55 L 22 09/21/21 09:30 36.4 C L 54 L 24 09/21/21 09:01 36.5 C 52 L 25 H 09/21/21 09:00 36.5 C 52 L 24 09/21/21 08:30 36.3 C L 55 L 24 09/21/21 08:00 35.7 C L 36.2 C L 36.3 C L 60 24 09/21/21 07:30 35.2 C L 60 23 09/21/21 07:21 71 26 H 09/21/21 07:00 35.4 C L 36.2 C L 36.3 C L 54 L 22 09/21/21 06:30 35.4 C L 57 L 22 09/21/21 06:01 34.8 C L 61 20 09/21/21 06:00 34.8 C L 35.3 C L 35.4 C L 61 23 09/21/21 05:02 34.1 C L 55 L 23 09/21/21 05:00 34.3 C L 34.3 C L 59 L 26 H 09/21/21 04:00 33.7 C L 34 C L 34 C L 63 27 H 107/64 107/64 09/21/21 03:55 33.6 C L 63 25 H 09/21/21 03:15 54 L 27 H 09/21/21 03:00 34 C L 33.9 C L 51 L 26 H BP Pulse Ox 09/21/21 11:33 93 09/21/21 11:30 94 09/21/21 11:00 94 09/21/21 10:30 88 L 09/21/21 10:00 93 09/21/21 09:30 93 09/21/21 09:01 93 09/21/21 09:00 93 09/21/21 08:30 89 L 09/21/21 08:00 115/45 L 93 09/21/21 07:30 96 09/21/21 07:21 95 09/21/21 07:00 124/50 L 95 09/21/21 06:30 91 09/21/21 06:01 09/21/21 06:00 136/51 L 97 09/21/21 05:02 09/21/21 05:00 144/57 H 09/21/21 04:00 140/58 L 96 09/21/21 03:55 98 09/21/21 03:15 94 09/21/21 03:00 116/47 L 100 Laboratory Results 09/21/21 09/21/21 09/21/21 Range/Units 16:39 16:39 16:39 WBC (4.8-10.8) K/uL RBC (4.7-6.1) M/uL Hgb (14.0-18.0) g/dL POC Hgb (14.0-18.0) g/dl Hct (42-52) % POC Hct (42-52) % MCV (80-100) fL MCH (25-34) pg MCHC (32-36) g/dL RDW Std Deviation (36.4-46.3) fL RDW Coeff of Aaron (11.5-14.5) % Plt Count (130-400) K/uL MPV (7.4-10.4) fL Immature Gran % (Auto) % Neut % (Auto) % Lymph % (Auto) % Lewis % (Auto) % Eos % (Auto) % Baso % (Auto) % Neut # (Auto) (1.4-6.5) K/uL Lymph # (Auto) (1.2-3.4) K/uL Lewis # (Auto) (0.11-0.59) K/uL Eos # (Auto) (0-0.5) K/uL Baso # (Auto) (0-0.2) K/uL Immature Gran # (Auto) (0.00-0.02) K/uL PT (9.0-12.0) Seconds INR (0.9-1.1) APTT (21.0-31.0) Seconds PTT Ratio Activ Coag Time Kaolin (94-140) SECONDS Sample Site POC pH (7.35-7.45) POC pCO2 (35-46) mmHg POC pO2 (80-95) mmHg POC HCO3 (19-24) lester/L POC Total CO2 (24-31) mmol/L POC Base Excess (-9-1.8) lester/L ABG pH (Temp Correct) (7.35-7.45) ABG pCO2 (Temp Corrct (35-46) mmHg POC ABG pO2 at Pt Temp POC ABG O2 Sat (90-95) % Jovan Test O2 Delivery Device POC O2 Rate Minute Ventilation POC FiO2 % Tidal Volume PEEP POC Sodium (135-144) mmol/L Sodium 134 L (136-145) mmol/L POC Potassium (3.3-5.0) mmol/L Potassium 5.5 H (3.5-5.1) mmol/L Chloride 97 L (98-107) mmol/L Carbon Dioxide 16 L (21-32) mmol/L Anion Gap 21 H (3-11) BUN 40 H (6-23) mg/dl Creatinine 3.42 H D (0.6-1.4) mg/dl Est Cr Clr Drug Dosing 22.4 ml/min Est GFR ( Amer) 19.5 ml/min Est GFR (Non-Af Amer) 16.8 ml/min BUN/Creatinine Ratio 11.7 (10-20) Glucose 127 H (70-99(Fasting)) mg/dl POC Glucose (other) (70-99) mg/dl Lactate Cancelled (0.4-2.0) mmol/L Calcium 7.4 L (8.5-10.1) mg/dl Ionized Calcium Pending (1.12-1.32) mmol/L Phosphorus 8.3 H (2.5-4.9) mg/dl Magnesium 2.1 (1.7-2.4) mg/dl Total Bilirubin (0.2-1.0) mg/dl Direct Bilirubin (0-0.2) mg/dl AST (13-39) U/L ALT (7-52) U/L Alkaline Phosphatase (34-104) U/L Total Creatine Kinase (30-223) U/L Troponin I High Sens (0-20) pg/ml Total Protein (6.0-8.3) gm/dl Albumin (3.4-5.0) gm/dl 09/21/21 09/21/21 09/21/21 Range/Units 16:38 16:35 14:41 WBC (4.8-10.8) K/uL RBC (4.7-6.1) M/uL Hgb (14.0-18.0) g/dL POC Hgb 11.9 L (14.0-18.0) g/dl Hct (42-52) % POC Hct 35 L (42-52) % MCV (80-100) fL MCH (25-34) pg MCHC (32-36) g/dL RDW Std Deviation (36.4-46.3) fL RDW Coeff of Aaron (11.5-14.5) % Plt Count (130-400) K/uL MPV (7.4-10.4) fL Immature Gran % (Auto) % Neut % (Auto) % Lymph % (Auto) % Lewis % (Auto) % Eos % (Auto) % Baso % (Auto) % Neut # (Auto) (1.4-6.5) K/uL Lymph # (Auto) (1.2-3.4) K/uL Lewis # (Auto) (0.11-0.59) K/uL Eos # (Auto) (0-0.5) K/uL Baso # (Auto) (0-0.2) K/uL Immature Gran # (Auto) (0.00-0.02) K/uL PT (9.0-12.0) Seconds INR (0.9-1.1) APTT (21.0-31.0) Seconds PTT Ratio Activ Coag Time Kaolin (94-140) SECONDS Sample Site Art Line POC pH 7.23 L (7.35-7.45) POC pCO2 41 (35-46) mmHg POC pO2 89 (80-95) mmHg POC HCO3 17 L (19-24) lester/L POC Total CO2 18 L (24-31) mmol/L POC Base Excess -10.0 L (-9-1.8) lester/L ABG pH (Temp Correct) 7.222 L (7.35-7.45) ABG pCO2 (Temp Corrct 42 (35-46) mmHg POC ABG pO2 at Pt Temp 91 POC ABG O2 Sat 95.0 (90-95) % Jovan Test NA O2 Delivery Device Ventilator POC O2 Rate 24 Minute Ventilation POC FiO2 60 % Tidal Volume 535 PEEP 12 POC Sodium 131 L (135-144) mmol/L Sodium (136-145) mmol/L POC Potassium 5.6 H (3.3-5.0) mmol/L Potassium (3.5-5.1) mmol/L Chloride (98-107) mmol/L Carbon Dioxide (21-32) mmol/L Anion Gap (3-11) BUN (6-23) mg/dl Creatinine (0.6-1.4) mg/dl Est Cr Clr Drug Dosing ml/min Est GFR ( Amer) ml/min Est GFR (Non-Af Amer) ml/min BUN/Creatinine Ratio (10-20) Glucose (70-99(Fasting)) mg/dl POC Glucose (other) 129 H 117 H (70-99) mg/dl Lactate (0.4-2.0) mmol/L Calcium (8.5-10.1) mg/dl Ionized Calcium (1.12-1.32) mmol/L Phosphorus (2.5-4.9) mg/dl Magnesium (1.7-2.4) mg/dl Total Bilirubin (0.2-1.0) mg/dl Direct Bilirubin (0-0.2) mg/dl AST (13-39) U/L ALT (7-52) U/L Alkaline Phosphatase (34-104) U/L Total Creatine Kinase (30-223) U/L Troponin I High Sens (0-20) pg/ml Total Protein (6.0-8.3) gm/dl Albumin (3.4-5.0) gm/dl 09/21/21 09/21/21 09/21/21 Range/Units 12:31 11:40 11:40 WBC (4.8-10.8) K/uL RBC (4.7-6.1) M/uL Hgb (14.0-18.0) g/dL POC Hgb (14.0-18.0) g/dl Hct (42-52) % POC Hct (42-52) % MCV (80-100) fL MCH (25-34) pg MCHC (32-36) g/dL RDW Std Deviation (36.4-46.3) fL RDW Coeff of Aaron (11.5-14.5) % Plt Count (130-400) K/uL MPV (7.4-10.4) fL Immature Gran % (Auto) % Neut % (Auto) % Lymph % (Auto) % Lewis % (Auto) % Eos % (Auto) % Baso % (Auto) % Neut # (Auto) (1.4-6.5) K/uL Lymph # (Auto) (1.2-3.4) K/uL Lewis # (Auto) (0.11-0.59) K/uL Eos # (Auto) (0-0.5) K/uL Baso # (Auto) (0-0.2) K/uL Immature Gran # (Auto) (0.00-0.02) K/uL PT (9.0-12.0) Seconds INR (0.9-1.1) APTT (21.0-31.0) Seconds PTT Ratio Activ Coag Time Kaolin (94-140) SECONDS Sample Site POC pH (7.35-7.45) POC pCO2 (35-46) mmHg POC pO2 (80-95) mmHg POC HCO3 (19-24) lester/L POC Total CO2 (24-31) mmol/L POC Base Excess (-9-1.8) lester/L ABG pH (Temp Correct) (7.35-7.45) ABG pCO2 (Temp Corrct (35-46) mmHg POC ABG pO2 at Pt Temp POC ABG O2 Sat (90-95) % Jovan Test O2 Delivery Device POC O2 Rate Minute Ventilation POC FiO2 % Tidal Volume PEEP POC Sodium (135-144) mmol/L Sodium (136-145) mmol/L POC Potassium (3.3-5.0) mmol/L Potassium (3.5-5.1) mmol/L Chloride (98-107) mmol/L Carbon Dioxide (21-32) mmol/L Anion Gap (3-11) BUN (6-23) mg/dl Creatinine (0.6-1.4) mg/dl Est Cr Clr Drug Dosing ml/min Est GFR ( Amer) ml/min Est GFR (Non-Af Amer) ml/min BUN/Creatinine Ratio (10-20) Glucose (70-99(Fasting)) mg/dl POC Glucose (other) 103 H (70-99) mg/dl Lactate 8.9 H* (0.4-2.0) mmol/L Calcium (8.5-10.1) mg/dl Ionized Calcium (1.12-1.32) mmol/L Phosphorus (2.5-4.9) mg/dl Magnesium (1.7-2.4) mg/dl Total Bilirubin (0.2-1.0) mg/dl Direct Bilirubin (0-0.2) mg/dl AST (13-39) U/L ALT (7-52) U/L Alkaline Phosphatase (34-104) U/L Total Creatine Kinase 5384 H (30-223) U/L Troponin I High Sens (0-20) pg/ml Total Protein (6.0-8.3) gm/dl Albumin (3.4-5.0) gm/dl 09/21/21 09/21/21 09/21/21 Range/Units 11:40 11:14 11:10 WBC (4.8-10.8) K/uL RBC (4.7-6.1) M/uL Hgb (14.0-18.0) g/dL POC Hgb (14.0-18.0) g/dl Hct (42-52) % POC Hct (42-52) % MCV (80-100) fL MCH (25-34) pg MCHC (32-36) g/dL RDW Std Deviation (36.4-46.3) fL RDW Coeff of Aaron (11.5-14.5) % Plt Count (130-400) K/uL MPV (7.4-10.4) fL Immature Gran % (Auto) % Neut % (Auto) % Lymph % (Auto) % Lewis % (Auto) % Eos % (Auto) % Baso % (Auto) % Neut # (Auto) (1.4-6.5) K/uL Lymph # (Auto) (1.2-3.4) K/uL Lewis # (Auto) (0.11-0.59) K/uL Eos # (Auto) (0-0.5) K/uL Baso # (Auto) (0-0.2) K/uL Immature Gran # (Auto) (0.00-0.02) K/uL PT (9.0-12.0) Seconds INR (0.9-1.1) APTT (21.0-31.0) Seconds PTT Ratio Activ Coag Time Kaolin (94-140) SECONDS Sample Site Art Line POC pH 7.24 L (7.35-7.45) POC pCO2 43 (35-46) mmHg POC pO2 85 (80-95) mmHg POC HCO3 18 L (19-24) lester/L POC Total CO2 19 L (24-31) mmol/L POC Base Excess -9.0 (-9-1.8) lester/L ABG pH (Temp Correct) (7.35-7.45) ABG pCO2 (Temp Corrct (35-46) mmHg POC ABG pO2 at Pt Temp POC ABG O2 Sat 94.0 (90-95) % Jovan Test NA O2 Delivery Device Ventilator POC O2 Rate 24 Minute Ventilation POC FiO2 60 % Tidal Volume 535 PEEP 12 POC Sodium (135-144) mmol/L Sodium 133 L (136-145) mmol/L POC Potassium (3.3-5.0) mmol/L Potassium 5.9 H (3.5-5.1) mmol/L Chloride 98 (98-107) mmol/L Carbon Dioxide 17 L (21-32) mmol/L Anion Gap 18 H (3-11) BUN 34 H (6-23) mg/dl Creatinine 3.01 H (0.6-1.4) mg/dl Est Cr Clr Drug Dosing 25.4 ml/min Est GFR ( Amer) 22.7 ml/min Est GFR (Non-Af Amer) 19.6 ml/min BUN/Creatinine Ratio 11.3 (10-20) Glucose 97 (70-99(Fasting)) mg/dl POC Glucose (other) 100 H (70-99) mg/dl Lactate (0.4-2.0) mmol/L Calcium 7.6 L (8.5-10.1) mg/dl Ionized Calcium (1.12-1.32) mmol/L Phosphorus 8.5 H (2.5-4.9) mg/dl Magnesium 2.2 (1.7-2.4) mg/dl Total Bilirubin (0.2-1.0) mg/dl Direct Bilirubin (0-0.2) mg/dl AST (13-39) U/L ALT (7-52) U/L Alkaline Phosphatase (34-104) U/L Total Creatine Kinase (30-223) U/L Troponin I High Sens (0-20) pg/ml Total Protein (6.0-8.3) gm/dl Albumin (3.4-5.0) gm/dl 09/21/21 09/21/21 09/21/21 Range/Units 10:09 10:07 10:07 WBC (4.8-10.8) K/uL RBC (4.7-6.1) M/uL Hgb (14.0-18.0) g/dL POC Hgb (14.0-18.0) g/dl Hct (42-52) % POC Hct (42-52) % MCV (80-100) fL MCH (25-34) pg MCHC (32-36) g/dL RDW Std Deviation (36.4-46.3) fL RDW Coeff of Aaron (11.5-14.5) % Plt Count (130-400) K/uL MPV (7.4-10.4) fL Immature Gran % (Auto) % Neut % (Auto) % Lymph % (Auto) % Lewis % (Auto) % Eos % (Auto) % Baso % (Auto) % Neut # (Auto) (1.4-6.5) K/uL Lymph # (Auto) (1.2-3.4) K/uL Lewis # (Auto) (0.11-0.59) K/uL Eos # (Auto) (0-0.5) K/uL Baso # (Auto) (0-0.2) K/uL Immature Gran # (Auto) (0.00-0.02) K/uL PT (9.0-12.0) Seconds INR (0.9-1.1) APTT (21.0-31.0) Seconds PTT Ratio Activ Coag Time Kaolin (94-140) SECONDS Sample Site POC pH (7.35-7.45) POC pCO2 (35-46) mmHg POC pO2 (80-95) mmHg POC HCO3 (19-24) lester/L POC Total CO2 (24-31) mmol/L POC Base Excess (-9-1.8) lester/L ABG pH (Temp Correct) (7.35-7.45) ABG pCO2 (Temp Corrct (35-46) mmHg POC ABG pO2 at Pt Temp POC ABG O2 Sat (90-95) % Jovan Test O2 Delivery Device POC O2 Rate Minute Ventilation POC FiO2 % Tidal Volume PEEP POC Sodium (135-144) mmol/L Sodium 134 L (136-145) mmol/L POC Potassium (3.3-5.0) mmol/L Potassium 6.0 H D (3.5-5.1) mmol/L Chloride 98 (98-107) mmol/L Carbon Dioxide 19 L (21-32) mmol/L Anion Gap 17 H (3-11) BUN 33 H (6-23) mg/dl Creatinine 2.87 H D (0.6-1.4) mg/dl Est Cr Clr Drug Dosing 26.7 ml/min Est GFR ( Amer) 24.1 ml/min Est GFR (Non-Af Amer) 20.8 ml/min BUN/Creatinine Ratio 11.5 (10-20) Glucose 108 H (70-99(Fasting)) mg/dl POC Glucose (other) 111 H (70-99) mg/dl Lactate (0.4-2.0) mmol/L Calcium 7.6 L (8.5-10.1) mg/dl Ionized Calcium 0.96 L (1.12-1.32) mmol/L Phosphorus 8.2 H (2.5-4.9) mg/dl Magnesium 2.2 (1.7-2.4) mg/dl Total Bilirubin (0.2-1.0) mg/dl Direct Bilirubin (0-0.2) mg/dl AST (13-39) U/L ALT (7-52) U/L Alkaline Phosphatase (34-104) U/L Total Creatine Kinase (30-223) U/L Troponin I High Sens (0-20) pg/ml Total Protein (6.0-8.3) gm/dl Albumin (3.4-5.0) gm/dl 09/21/21 09/21/21 09/21/21 Range/Units 09:20 07:10 06:03 WBC (4.8-10.8) K/uL RBC (4.7-6.1) M/uL Hgb (14.0-18.0) g/dL POC Hgb (14.0-18.0) g/dl Hct (42-52) % POC Hct (42-52) % MCV (80-100) fL MCH (25-34) pg MCHC (32-36) g/dL RDW Std Deviation (36.4-46.3) fL RDW Coeff of Aaron (11.5-14.5) % Plt Count (130-400) K/uL MPV (7.4-10.4) fL Immature Gran % (Auto) % Neut % (Auto) % Lymph % (Auto) % Lewis % (Auto) % Eos % (Auto) % Baso % (Auto) % Neut # (Auto) (1.4-6.5) K/uL Lymph # (Auto) (1.2-3.4) K/uL Lewis # (Auto) (0.11-0.59) K/uL Eos # (Auto) (0-0.5) K/uL Baso # (Auto) (0-0.2) K/uL Immature Gran # (Auto) (0.00-0.02) K/uL PT (9.0-12.0) Seconds INR (0.9-1.1) APTT (21.0-31.0) Seconds PTT Ratio Activ Coag Time Kaolin (94-140) SECONDS Sample Site POC pH (7.35-7.45) POC pCO2 (35-46) mmHg POC pO2 (80-95) mmHg POC HCO3 (19-24) lester/L POC Total CO2 (24-31) mmol/L POC Base Excess (-9-1.8) lester/L ABG pH (Temp Correct) (7.35-7.45) ABG pCO2 (Temp Corrct (35-46) mmHg POC ABG pO2 at Pt Temp POC ABG O2 Sat (90-95) % Jovan Test O2 Delivery Device POC O2 Rate Minute Ventilation POC FiO2 % Tidal Volume PEEP POC Sodium (135-144) mmol/L Sodium (136-145) mmol/L POC Potassium (3.3-5.0) mmol/L Potassium (3.5-5.1) mmol/L Chloride (98-107) mmol/L Carbon Dioxide (21-32) mmol/L Anion Gap (3-11) BUN (6-23) mg/dl Creatinine (0.6-1.4) mg/dl Est Cr Clr Drug Dosing ml/min Est GFR ( Amer) ml/min Est GFR (Non-Af Amer) ml/min BUN/Creatinine Ratio (10-20) Glucose (70-99(Fasting)) mg/dl POC Glucose (other) 111 H 112 H 117 H (70-99) mg/dl Lactate (0.4-2.0) mmol/L Calcium (8.5-10.1) mg/dl Ionized Calcium (1.12-1.32) mmol/L Phosphorus (2.5-4.9) mg/dl Magnesium (1.7-2.4) mg/dl Total Bilirubin (0.2-1.0) mg/dl Direct Bilirubin (0-0.2) mg/dl AST (13-39) U/L ALT (7-52) U/L Alkaline Phosphatase (34-104) U/L Total Creatine Kinase (30-223) U/L Troponin I High Sens (0-20) pg/ml Total Protein (6.0-8.3) gm/dl Albumin (3.4-5.0) gm/dl 09/21/21 09/21/21 09/21/21 Range/Units 05:08 04:54 04:49 WBC (4.8-10.8) K/uL RBC (4.7-6.1) M/uL Hgb (14.0-18.0) g/dL POC Hgb 11.9 L (14.0-18.0) g/dl Hct (42-52) % POC Hct 35 L (42-52) % MCV (80-100) fL MCH (25-34) pg MCHC (32-36) g/dL RDW Std Deviation (36.4-46.3) fL RDW Coeff of Aaron (11.5-14.5) % Plt Count (130-400) K/uL MPV (7.4-10.4) fL Immature Gran % (Auto) % Neut % (Auto) % Lymph % (Auto) % Lewis % (Auto) % Eos % (Auto) % Baso % (Auto) % Neut # (Auto) (1.4-6.5) K/uL Lymph # (Auto) (1.2-3.4) K/uL Lewis # (Auto) (0.11-0.59) K/uL Eos # (Auto) (0-0.5) K/uL Baso # (Auto) (0-0.2) K/uL Immature Gran # (Auto) (0.00-0.02) K/uL PT (9.0-12.0) Seconds INR (0.9-1.1) APTT (21.0-31.0) Seconds PTT Ratio Activ Coag Time Kaolin (94-140) SECONDS Sample Site Art Line POC pH 7.19 L* (7.35-7.45) POC pCO2 52 H (35-46) mmHg POC pO2 105 H (80-95) mmHg POC HCO3 20 (19-24) lester/L POC Total CO2 21 L (24-31) mmol/L POC Base Excess -8.0 (-9-1.8) lester/L ABG pH (Temp Correct) 7.224 L (7.35-7.45) ABG pCO2 (Temp Corrct 47 H (35-46) mmHg POC ABG pO2 at Pt Temp 91 POC ABG O2 Sat 96.0 H (90-95) % Jovan Test NA O2 Delivery Device Ventilator POC O2 Rate 24 Minute Ventilation 10.7 POC FiO2 80 % Tidal Volume 535 PEEP 14 POC Sodium 134 L (135-144) mmol/L Sodium 135 L (136-145) mmol/L POC Potassium 4.8 (3.3-5.0) mmol/L Potassium 4.8 (3.5-5.1) mmol/L Chloride 98 (98-107) mmol/L Carbon Dioxide 20 L (21-32) mmol/L Anion Gap 17 H (3-11) BUN 30 H (6-23) mg/dl Creatinine 2.49 H (0.6-1.4) mg/dl Est Cr Clr Drug Dosing 30.7 ml/min Est GFR ( Amer) 28.6 ml/min Est GFR (Non-Af Amer) 24.7 ml/min BUN/Creatinine Ratio 12.0 (10-20) Glucose 115 H (70-99(Fasting)) mg/dl POC Glucose (other) 122 H (70-99) mg/dl Lactate (0.4-2.0) mmol/L Calcium 7.9 L (8.5-10.1) mg/dl Ionized Calcium (1.12-1.32) mmol/L Phosphorus 8.1 H D (2.5-4.9) mg/dl Magnesium 2.3 (1.7-2.4) mg/dl Total Bilirubin 0.6 (0.2-1.0) mg/dl Direct Bilirubin 0.2 (0-0.2) mg/dl AST 532 H (13-39) U/L ALT 226 H (7-52) U/L Alkaline Phosphatase 67 (34-104) U/L Total Creatine Kinase (30-223) U/L Troponin I High Sens > 98999.0 H* (0-20) pg/ml Total Protein 4.7 L (6.0-8.3) gm/dl Albumin 3.0 L (3.4-5.0) gm/dl 09/21/21 09/21/21 09/21/21 Range/Units 04:49 04:49 04:07 WBC 19.59 H (4.8-10.8) K/uL RBC 4.15 L (4.7-6.1) M/uL Hgb 12.3 L (14.0-18.0) g/dL POC Hgb (14.0-18.0) g/dl Hct 36.5 L (42-52) % POC Hct (42-52) % MCV 88.0 (80-100) fL MCH 29.6 (25-34) pg MCHC 33.7 (32-36) g/dL RDW Std Deviation 42.3 (36.4-46.3) fL RDW Coeff of Aaron 13.1 (11.5-14.5) % Plt Count 289 (130-400) K/uL MPV 10.3 (7.4-10.4) fL Immature Gran % (Auto) 0.4 % Neut % (Auto) 87.0 % Lymph % (Auto) 3.9 % Lewis % (Auto) 8.6 % Eos % (Auto) 0.0 % Baso % (Auto) 0.1 % Neut # (Auto) 17.06 H (1.4-6.5) K/uL Lymph # (Auto) 0.76 L (1.2-3.4) K/uL Lewis # (Auto) 1.69 H (0.11-0.59) K/uL Eos # (Auto) 0.00 (0-0.5) K/uL Baso # (Auto) 0.01 (0-0.2) K/uL Immature Gran # (Auto) 0.07 H (0.00-0.02) K/uL PT 13.6 H (9.0-12.0) Seconds INR 1.3 H (0.9-1.1) APTT (21.0-31.0) Seconds PTT Ratio Activ Coag Time Kaolin (94-140) SECONDS Sample Site POC pH (7.35-7.45) POC pCO2 (35-46) mmHg POC pO2 (80-95) mmHg POC HCO3 (19-24) lester/L POC Total CO2 (24-31) mmol/L POC Base Excess (-9-1.8) lester/L ABG pH (Temp Correct) (7.35-7.45) ABG pCO2 (Temp Corrct (35-46) mmHg POC ABG pO2 at Pt Temp POC ABG O2 Sat (90-95) % Jovan Test O2 Delivery Device POC O2 Rate Minute Ventilation POC FiO2 % Tidal Volume PEEP POC Sodium (135-144) mmol/L Sodium (136-145) mmol/L POC Potassium (3.3-5.0) mmol/L Potassium (3.5-5.1) mmol/L Chloride (98-107) mmol/L Carbon Dioxide (21-32) mmol/L Anion Gap (3-11) BUN (6-23) mg/dl Creatinine (0.6-1.4) mg/dl Est Cr Clr Drug Dosing ml/min Est GFR ( Amer) ml/min Est GFR (Non-Af Amer) ml/min BUN/Creatinine Ratio (10-20) Glucose (70-99(Fasting)) mg/dl POC Glucose (other) 122 H (70-99) mg/dl Lactate (0.4-2.0) mmol/L Calcium (8.5-10.1) mg/dl Ionized Calcium (1.12-1.32) mmol/L Phosphorus (2.5-4.9) mg/dl Magnesium (1.7-2.4) mg/dl Total Bilirubin (0.2-1.0) mg/dl Direct Bilirubin (0-0.2) mg/dl AST (13-39) U/L ALT (7-52) U/L Alkaline Phosphatase (34-104) U/L Total Creatine Kinase (30-223) U/L Troponin I High Sens (0-20) pg/ml Total Protein (6.0-8.3) gm/dl Albumin (3.4-5.0) gm/dl 09/21/21 09/21/21 09/21/21 Range/Units 02:55 01:42 01:09 WBC (4.8-10.8) K/uL RBC (4.7-6.1) M/uL Hgb (14.0-18.0) g/dL POC Hgb (14.0-18.0) g/dl Hct (42-52) % POC Hct (42-52) % MCV (80-100) fL MCH (25-34) pg MCHC (32-36) g/dL RDW Std Deviation (36.4-46.3) fL RDW Coeff of Aaron (11.5-14.5) % Plt Count (130-400) K/uL MPV (7.4-10.4) fL Immature Gran % (Auto) % Neut % (Auto) % Lymph % (Auto) % Lewis % (Auto) % Eos % (Auto) % Baso % (Auto) % Neut # (Auto) (1.4-6.5) K/uL Lymph # (Auto) (1.2-3.4) K/uL Lewis # (Auto) (0.11-0.59) K/uL Eos # (Auto) (0-0.5) K/uL Baso # (Auto) (0-0.2) K/uL Immature Gran # (Auto) (0.00-0.02) K/uL PT (9.0-12.0) Seconds INR (0.9-1.1) APTT (21.0-31.0) Seconds PTT Ratio Activ Coag Time Kaolin (94-140) SECONDS Sample Site POC pH (7.35-7.45) POC pCO2 (35-46) mmHg POC pO2 (80-95) mmHg POC HCO3 (19-24) lester/L POC Total CO2 (24-31) mmol/L POC Base Excess (-9-1.8) lester/L ABG pH (Temp Correct) (7.35-7.45) ABG pCO2 (Temp Corrct (35-46) mmHg POC ABG pO2 at Pt Temp POC ABG O2 Sat (90-95) % Jovan Test O2 Delivery Device POC O2 Rate Minute Ventilation POC FiO2 % Tidal Volume PEEP POC Sodium (135-144) mmol/L Sodium (136-145) mmol/L POC Potassium (3.3-5.0) mmol/L Potassium (3.5-5.1) mmol/L Chloride (98-107) mmol/L Carbon Dioxide (21-32) mmol/L Anion Gap (3-11) BUN (6-23) mg/dl Creatinine (0.6-1.4) mg/dl Est Cr Clr Drug Dosing ml/min Est GFR ( Amer) ml/min Est GFR (Non-Af Amer) ml/min BUN/Creatinine Ratio (10-20) Glucose (70-99(Fasting)) mg/dl POC Glucose (other) 117 H 94 95 (70-99) mg/dl Lactate (0.4-2.0) mmol/L Calcium (8.5-10.1) mg/dl Ionized Calcium (1.12-1.32) mmol/L Phosphorus (2.5-4.9) mg/dl Magnesium (1.7-2.4) mg/dl Total Bilirubin (0.2-1.0) mg/dl Direct Bilirubin (0-0.2) mg/dl AST (13-39) U/L ALT (7-52) U/L Alkaline Phosphatase (34-104) U/L Total Creatine Kinase (30-223) U/L Troponin I High Sens (0-20) pg/ml Total Protein (6.0-8.3) gm/dl Albumin (3.4-5.0) gm/dl 09/21/21 09/20/21 09/20/21 Range/Units 00:02 23:33 23:03 WBC (4.8-10.8) K/uL RBC (4.7-6.1) M/uL Hgb (14.0-18.0) g/dL POC Hgb 12.2 L (14.0-18.0) g/dl Hct (42-52) % POC Hct 36 L (42-52) % MCV (80-100) fL MCH (25-34) pg MCHC (32-36) g/dL RDW Std Deviation (36.4-46.3) fL RDW Coeff of Aaron (11.5-14.5) % Plt Count (130-400) K/uL MPV (7.4-10.4) fL Immature Gran % (Auto) % Neut % (Auto) % Lymph % (Auto) % Lewis % (Auto) % Eos % (Auto) % Baso % (Auto) % Neut # (Auto) (1.4-6.5) K/uL Lymph # (Auto) (1.2-3.4) K/uL Lewis # (Auto) (0.11-0.59) K/uL Eos # (Auto) (0-0.5) K/uL Baso # (Auto) (0-0.2) K/uL Immature Gran # (Auto) (0.00-0.02) K/uL PT (9.0-12.0) Seconds INR (0.9-1.1) APTT (21.0-31.0) Seconds PTT Ratio Activ Coag Time Kaolin (94-140) SECONDS Sample Site Art Line POC pH 7.20 L (7.35-7.45) POC pCO2 54 H (35-46) mmHg POC pO2 83 (80-95) mmHg POC HCO3 21 (19-24) lester/L POC Total CO2 23 L (24-31) mmol/L POC Base Excess -7.0 (-9-1.8) lester/L ABG pH (Temp Correct) 7.242 L (7.35-7.45) ABG pCO2 (Temp Corrct 48 H (35-46) mmHg POC ABG pO2 at Pt Temp 70 POC ABG O2 Sat 93.0 (90-95) % Jovan Test NA O2 Delivery Device Ventilator POC O2 Rate 24 Minute Ventilation 11.7 POC FiO2 80 % Tidal Volume 535 PEEP 14 POC Sodium 136 (135-144) mmol/L Sodium (136-145) mmol/L POC Potassium 4.1 (3.3-5.0) mmol/L Potassium (3.5-5.1) mmol/L Chloride (98-107) mmol/L Carbon Dioxide (21-32) mmol/L Anion Gap (3-11) BUN (6-23) mg/dl Creatinine (0.6-1.4) mg/dl Est Cr Clr Drug Dosing ml/min Est GFR ( Amer) ml/min Est GFR (Non-Af Amer) ml/min BUN/Creatinine Ratio (10-20) Glucose (70-99(Fasting)) mg/dl POC Glucose (other) 100 H 115 H (70-99) mg/dl Lactate (0.4-2.0) mmol/L Calcium (8.5-10.1) mg/dl Ionized Calcium (1.12-1.32) mmol/L Phosphorus (2.5-4.9) mg/dl Magnesium (1.7-2.4) mg/dl Total Bilirubin (0.2-1.0) mg/dl Direct Bilirubin (0-0.2) mg/dl AST (13-39) U/L ALT (7-52) U/L Alkaline Phosphatase (34-104) U/L Total Creatine Kinase (30-223) U/L Troponin I High Sens (0-20) pg/ml Total Protein (6.0-8.3) gm/dl Albumin (3.4-5.0) gm/dl 09/20/21 09/20/21 09/20/21 Range/Units 22:35 22:35 22:35 WBC (4.8-10.8) K/uL RBC (4.7-6.1) M/uL Hgb (14.0-18.0) g/dL POC Hgb (14.0-18.0) g/dl Hct (42-52) % POC Hct (42-52) % MCV (80-100) fL MCH (25-34) pg MCHC (32-36) g/dL RDW Std Deviation (36.4-46.3) fL RDW Coeff of Aaron (11.5-14.5) % Plt Count (130-400) K/uL MPV (7.4-10.4) fL Immature Gran % (Auto) % Neut % (Auto) % Lymph % (Auto) % Lewis % (Auto) % Eos % (Auto) % Baso % (Auto) % Neut # (Auto) (1.4-6.5) K/uL Lymph # (Auto) (1.2-3.4) K/uL Lewis # (Auto) (0.11-0.59) K/uL Eos # (Auto) (0-0.5) K/uL Baso # (Auto) (0-0.2) K/uL Immature Gran # (Auto) (0.00-0.02) K/uL PT 13.1 H (9.0-12.0) Seconds INR 1.2 H (0.9-1.1) APTT 26.8 (21.0-31.0) Seconds PTT Ratio 1.0 Activ Coag Time Kaolin (94-140) SECONDS Sample Site POC pH (7.35-7.45) POC pCO2 (35-46) mmHg POC pO2 (80-95) mmHg POC HCO3 (19-24) lester/L POC Total CO2 (24-31) mmol/L POC Base Excess (-9-1.8) lester/L ABG pH (Temp Correct) (7.35-7.45) ABG pCO2 (Temp Corrct (35-46) mmHg POC ABG pO2 at Pt Temp POC ABG O2 Sat (90-95) % Jovan Test O2 Delivery Device POC O2 Rate Minute Ventilation POC FiO2 % Tidal Volume PEEP POC Sodium (135-144) mmol/L Sodium 136 (136-145) mmol/L POC Potassium (3.3-5.0) mmol/L Potassium 4.1 (3.5-5.1) mmol/L Chloride 99 (98-107) mmol/L Carbon Dioxide 22 (21-32) mmol/L Anion Gap 15 H (3-11) BUN 28 H (6-23) mg/dl Creatinine 2.25 H (0.6-1.4) mg/dl Est Cr Clr Drug Dosing 31.7 ml/min Est GFR ( Amer) 32.3 ml/min Est GFR (Non-Af Amer) 27.9 ml/min BUN/Creatinine Ratio 12.4 (10-20) Glucose 116 H (70-99(Fasting)) mg/dl POC Glucose (other) (70-99) mg/dl Lactate (0.4-2.0) mmol/L Calcium 7.7 L (8.5-10.1) mg/dl Ionized Calcium 1.04 L (1.12-1.32) mmol/L Phosphorus (2.5-4.9) mg/dl Magnesium 2.6 H (1.7-2.4) mg/dl Total Bilirubin (0.2-1.0) mg/dl Direct Bilirubin (0-0.2) mg/dl AST (13-39) U/L ALT (7-52) U/L Alkaline Phosphatase (34-104) U/L Total Creatine Kinase (30-223) U/L Troponin I High Sens > 80418.0 H* (0-20) pg/ml Total Protein (6.0-8.3) gm/dl Albumin (3.4-5.0) gm/dl 09/20/21 09/20/21 09/20/21 Range/Units 22:03 21:05 20:06 WBC (4.8-10.8) K/uL RBC (4.7-6.1) M/uL Hgb (14.0-18.0) g/dL POC Hgb (14.0-18.0) g/dl Hct (42-52) % POC Hct (42-52) % MCV (80-100) fL MCH (25-34) pg MCHC (32-36) g/dL RDW Std Deviation (36.4-46.3) fL RDW Coeff of Aaron (11.5-14.5) % Plt Count (130-400) K/uL MPV (7.4-10.4) fL Immature Gran % (Auto) % Neut % (Auto) % Lymph % (Auto) % Lewis % (Auto) % Eos % (Auto) % Baso % (Auto) % Neut # (Auto) (1.4-6.5) K/uL Lymph # (Auto) (1.2-3.4) K/uL Lewis # (Auto) (0.11-0.59) K/uL Eos # (Auto) (0-0.5) K/uL Baso # (Auto) (0-0.2) K/uL Immature Gran # (Auto) (0.00-0.02) K/uL PT (9.0-12.0) Seconds INR (0.9-1.1) APTT (21.0-31.0) Seconds PTT Ratio Activ Coag Time Kaolin (94-140) SECONDS Sample Site POC pH (7.35-7.45) POC pCO2 (35-46) mmHg POC pO2 (80-95) mmHg POC HCO3 (19-24) lester/L POC Total CO2 (24-31) mmol/L POC Base Excess (-9-1.8) lester/L ABG pH (Temp Correct) (7.35-7.45) ABG pCO2 (Temp Corrct (35-46) mmHg POC ABG pO2 at Pt Temp POC ABG O2 Sat (90-95) % Jovan Test O2 Delivery Device POC O2 Rate Minute Ventilation POC FiO2 % Tidal Volume PEEP POC Sodium (135-144) mmol/L Sodium (136-145) mmol/L POC Potassium (3.3-5.0) mmol/L Potassium (3.5-5.1) mmol/L Chloride (98-107) mmol/L Carbon Dioxide (21-32) mmol/L Anion Gap (3-11) BUN (6-23) mg/dl Creatinine (0.6-1.4) mg/dl Est Cr Clr Drug Dosing ml/min Est GFR ( Amer) ml/min Est GFR (Non-Af Amer) ml/min BUN/Creatinine Ratio (10-20) Glucose (70-99(Fasting)) mg/dl POC Glucose (other) 123 H 142 H 116 H (70-99) mg/dl Lactate (0.4-2.0) mmol/L Calcium (8.5-10.1) mg/dl Ionized Calcium (1.12-1.32) mmol/L Phosphorus (2.5-4.9) mg/dl Magnesium (1.7-2.4) mg/dl Total Bilirubin (0.2-1.0) mg/dl Direct Bilirubin (0-0.2) mg/dl AST (13-39) U/L ALT (7-52) U/L Alkaline Phosphatase (34-104) U/L Total Creatine Kinase (30-223) U/L Troponin I High Sens (0-20) pg/ml Total Protein (6.0-8.3) gm/dl Albumin (3.4-5.0) gm/dl 09/20/21 09/20/21 09/20/21 Range/Units 19:22 18:25 17:22 WBC (4.8-10.8) K/uL RBC (4.7-6.1) M/uL Hgb (14.0-18.0) g/dL POC Hgb (14.0-18.0) g/dl Hct (42-52) % POC Hct (42-52) % MCV (80-100) fL MCH (25-34) pg MCHC (32-36) g/dL RDW Std Deviation (36.4-46.3) fL RDW Coeff of Aaron (11.5-14.5) % Plt Count (130-400) K/uL MPV (7.4-10.4) fL Immature Gran % (Auto) % Neut % (Auto) % Lymph % (Auto) % Lewis % (Auto) % Eos % (Auto) % Baso % (Auto) % Neut # (Auto) (1.4-6.5) K/uL Lymph # (Auto) (1.2-3.4) K/uL Lewis # (Auto) (0.11-0.59) K/uL Eos # (Auto) (0-0.5) K/uL Baso # (Auto) (0-0.2) K/uL Immature Gran # (Auto) (0.00-0.02) K/uL PT (9.0-12.0) Seconds INR (0.9-1.1) APTT (21.0-31.0) Seconds PTT Ratio Activ Coag Time Kaolin (94-140) SECONDS Sample Site POC pH (7.35-7.45) POC pCO2 (35-46) mmHg POC pO2 (80-95) mmHg POC HCO3 (19-24) lester/L POC Total CO2 (24-31) mmol/L POC Base Excess (-9-1.8) lester/L ABG pH (Temp Correct) (7.35-7.45) ABG pCO2 (Temp Corrct (35-46) mmHg POC ABG pO2 at Pt Temp POC ABG O2 Sat (90-95) % Jovan Test O2 Delivery Device POC O2 Rate Minute Ventilation POC FiO2 % Tidal Volume PEEP POC Sodium (135-144) mmol/L Sodium 136 (136-145) mmol/L POC Potassium (3.3-5.0) mmol/L Potassium 3.6 (3.5-5.1) mmol/L Chloride 100 (98-107) mmol/L Carbon Dioxide 24 (21-32) mmol/L Anion Gap 12 H (3-11) BUN 24 H (6-23) mg/dl Creatinine 1.99 H (0.6-1.4) mg/dl Est Cr Clr Drug Dosing 35.9 ml/min Est GFR ( Amer) 37.5 ml/min Est GFR (Non-Af Amer) 32.4 ml/min BUN/Creatinine Ratio 12.1 (10-20) Glucose 92 (70-99(Fasting)) mg/dl POC Glucose (other) 106 H 97 (70-99) mg/dl Lactate (0.4-2.0) mmol/L Calcium 7.9 L (8.5-10.1) mg/dl Ionized Calcium (1.12-1.32) mmol/L Phosphorus (2.5-4.9) mg/dl Magnesium 1.7 (1.7-2.4) mg/dl Total Bilirubin (0.2-1.0) mg/dl Direct Bilirubin (0-0.2) mg/dl AST (13-39) U/L ALT (7-52) U/L Alkaline Phosphatase (34-104) U/L Total Creatine Kinase (30-223) U/L Troponin I High Sens (0-20) pg/ml Total Protein (6.0-8.3) gm/dl Albumin (3.4-5.0) gm/dl 09/20/21 09/20/21 Range/Units 17:22 01:22 WBC (4.8-10.8) K/uL RBC (4.7-6.1) M/uL Hgb (14.0-18.0) g/dL POC Hgb (14.0-18.0) g/dl Hct (42-52) % POC Hct (42-52) % MCV (80-100) fL MCH (25-34) pg MCHC (32-36) g/dL RDW Std Deviation (36.4-46.3) fL RDW Coeff of Aaron (11.5-14.5) % Plt Count (130-400) K/uL MPV (7.4-10.4) fL Immature Gran % (Auto) % Neut % (Auto) % Lymph % (Auto) % Lewis % (Auto) % Eos % (Auto) % Baso % (Auto) % Neut # (Auto) (1.4-6.5) K/uL Lymph # (Auto) (1.2-3.4) K/uL Lewis # (Auto) (0.11-0.59) K/uL Eos # (Auto) (0-0.5) K/uL Baso # (Auto) (0-0.2) K/uL Immature Gran # (Auto) (0.00-0.02) K/uL PT (9.0-12.0) Seconds INR (0.9-1.1) APTT (21.0-31.0) Seconds PTT Ratio Activ Coag Time Kaolin 255 H (94-140) SECONDS Sample Site POC pH (7.35-7.45) POC pCO2 (35-46) mmHg POC pO2 (80-95) mmHg POC HCO3 (19-24) lester/L POC Total CO2 (24-31) mmol/L POC Base Excess (-9-1.8) lester/L ABG pH (Temp Correct) (7.35-7.45) ABG pCO2 (Temp Corrct (35-46) mmHg POC ABG pO2 at Pt Temp POC ABG O2 Sat (90-95) % Jovan Test O2 Delivery Device POC O2 Rate Minute Ventilation POC FiO2 % Tidal Volume PEEP POC Sodium (135-144) mmol/L Sodium (136-145) mmol/L POC Potassium (3.3-5.0) mmol/L Potassium (3.5-5.1) mmol/L Chloride (98-107) mmol/L Carbon Dioxide (21-32) mmol/L Anion Gap (3-11) BUN (6-23) mg/dl Creatinine (0.6-1.4) mg/dl Est Cr Clr Drug Dosing ml/min Est GFR ( Amer) ml/min Est GFR (Non-Af Amer) ml/min BUN/Creatinine Ratio (10-20) Glucose (70-99(Fasting)) mg/dl POC Glucose (other) (70-99) mg/dl Lactate (0.4-2.0) mmol/L Calcium (8.5-10.1) mg/dl Ionized Calcium (1.12-1.32) mmol/L Phosphorus (2.5-4.9) mg/dl Magnesium (1.7-2.4) mg/dl Total Bilirubin (0.2-1.0) mg/dl Direct Bilirubin (0-0.2) mg/dl AST (13-39) U/L ALT (7-52) U/L Alkaline Phosphatase (34-104) U/L Total Creatine Kinase (30-223) U/L Troponin I High Sens > 02982.0 H* (0-20) pg/ml Total Protein (6.0-8.3) gm/dl Albumin (3.4-5.0) gm/dl Resident Activity Tracking Resident Involvement: Resident Care Provided Care Provided: Adult [facility]
[2021-09-21] MEDS ORDERED: INSULIN ASPART PER UNIT SC SCH (16:00)
[2021-09-21] MEDS ORDERED: HEPARIN (PORCINE) 1000 UNIT/ML 10 ML (CATH LAB USE ONLY) ONE ×2 (16:34→17:49)
[2021-09-21] MEDS ORDERED: niCARdipine HCL INJ 2.5 MG/ML 10 ML AMP ONE (16:34)
[2021-09-21] MEDS ORDERED: NITROGLYCERIN/D5W 100MCG/ML 20ML SYR ONE (16:34)
[2021-09-21 16:52] LABS: iSTAT Art Bld Gas pCO2 Correct 42 mmHg (35-46); iSTAT Art Bld Gas pH Corrected 7.222 (7.35-7.45); iSTAT Arterial Blood Gas HCO3 17 meg/L (19-24); iSTAT Arterial Blood Gas pCO2 41 mmHg (35-46); iSTAT Arterial Blood Gas pH 7.23 (7.35-7.45); iSTAT Arterial Blood Gas pO2 89 mmHg (80-95); iSTAT Arterial Blood Gas pO2 C 91; iSTAT Carbon Dioxide 18 mmol/L (24-31); iSTAT FiO2 60 %; iSTAT Hematocrit 35 % (42-52); iSTAT Hemoglobin 11.9 g/dl (14.0-18.0); iSTAT Potassium 5.6 mmol/L (3.3-5.0); iSTAT Site Art Line; iSTAT Sodium 131 mmol/L (135-144)
--- NOTE | 2021-09-21 17:02 | Procedure Note ---
Procedure Note Date of Service September 21, 2021 Note Procedure date: Noted above Procedure: Radial artery cannulation Pre-procedure Diagnosis: Need for invasive monitoring, hypotension/frequent blood draws Post-procedure Diagnosis: same as above Prior to Procedure: Informed Consent: The risks, benefits, indications, potential complications, and alternatives were explained to the patient's and informed consent obtained. Attending Staff: Dayami Murray DO Skin Prep: Chlorhexidine Anesthesia: 3 mL 1% lidocaine without epinephrine The identity of the patient was confirmed and a bedside time out was performed. Description of Procedure: After sterile prep and sterile drape utilizing standard sterile technique the superficial skin of the left radial artery was anesthetized. The target artery was identified via dynamic ultrasound guidance and entered with a 20-gauge arrow Angiocath. Pulsatile bright red blood return was noted. Via modified Seldinger technique the self-contained guidewire was advanced and the Angiocath advanced over the guidewire. The guidewire was removed and brisk arterial blood return was noted. The pressure monitor was connected, and the arterial line was secured via commercial securement device. A sterile dressing was then applied. Complications: None Estimated blood loss: Trace Patient tolerated the procedure well. Coding CPT Codes Tubes, Drains, and Vasc Access - Tubes, Drains, and Vasc Access: [id number] Place Catheter In Artery ([id number]) [facility] [place] Codes (Charges) Tubes, Drains, and Vasc Access Procedure 1: Tubes, Drains, and Vasc Access: [id number] Place Catheter In Artery
[2021-09-21] MEDS ORDERED: EPINEPHrine INJ 1 MG/ML AMP ONE (17:06)
[2021-09-21] MEDS ORDERED: SODIUM BICARB 8.4% INJ 50 MEQ/50 ML SYR IV ONE ×3 (17:07→20:35)
[2021-09-21] MEDS ORDERED: STAT IV STA (17:10)
[2021-09-21] MEDS ORDERED: INSULIN REGULAR 250 UNITS in SODIUM CHLORIDE 0.9% 247.5 ML IV SCH (17:15)
[2021-09-21] MEDS ORDERED: INSULIN HUMAN REGULAR PER UNIT 10 UNITS in SYRINGE 9.9 ML IV ONE (17:30)
[2021-09-21 17:49] LABS: BUN Creatinine Ratio 11.7 (10-20); Calcium 7.4 mg/dl (8.5-10.1); Creatinine Clr Calc Pharmacy 22.4 ml/min; Est GFR (African American) 19.5 ml/min; Est GFR (Non-African American) 16.8 ml/min; Magnesium 2.1 mg/dl (1.7-2.4); Phosphorus 8.3 mg/dl (2.5-4.9); Potassium 5.5 mmol/L (3.5-5.1)
--- NOTE | 2021-09-21 19:18 | Cardiac Catheterization ---
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 Cardiac Status Clinical evaluation leading to the procedure CAD Presenation: STEMI Diagnostic Physicians Name: Willian Sims MD Closure Device Recommendations: Medical Therapy and/or Counseling Cardiac Cath Procedure Full Procedure Date September 21, 2021 Pre-Procedure Diagnosis Pre-Procedure Diagnosis: STEMI AUC Score AUC Score: 9 Post-Procedure Diagnosis Post-Procedure Diagnosis: Moderate CAD and Elevated Intracardiac Pressures Procedure(s) Performed Procedure(s) Performed: Coronary Angiography, Left Heart Cath, Right Heart Cath, Ultrasound Guided Vascular Access, CPR, Defibrillation and Procedure (Impella CP placement) Semiautomatic Stitcher Operator Willian Sims MD Agronomy Specialist(s) Framing And Hanging Estimated Blood Loss Estimated Blood Loss: 15 Medication(s) Medication(s): Heparin, Lidocaine 1%, Ahmet-Synephrine and Norepinephrine Medication(s): Vasopressin Summary of Findings Indication: Cardiogenic shock. Post out of hospital cardiac arrest, STEMI and primary PCI with stenting of left main and LAD and mid LAD. Access: 14 Fr left common femoral artery, 7 Fr left common femoral vein under ultrasound guidance Catheters: Diagnostic JR4, JR4, Clyde Findings: LM -20% ostial stenosis, left main into LAD stent widely patent LAD -mid LAD stent widely patent. Remainder of LAD without significant disease and wraps around apex with YAMEL-3 flow. Large bifurcating D1 patent with YAMEL-3 flow Circumflex -medium caliber, jailed with 50% ostial stenosis, 70 to 80% ostial stenosis of OM 1. YAMEL-3 flow throughout RCA -dominant, medium caliber, no significant disease Pre-Impella RA 3 RV 40/4 PA 40/9 (24) LV 23 PaSat 54% AoSat 91% Yadiel CO/CI 4.1/1.9 on norepinephrine 0.7 mcg/kg/min, vasopressin, phenylephrine Impella placement Iliac/femoral angiography confirmed adequate vessel for device placement Heparin to ACT greater than 250 5 Fr sheath exchanged for long 14 Fr sheath Aortic valve crossed with pigtail catheter and exchanged for a V 18 wire Impella CP device placed across aortic valve with appropriate aortic and LV waveforms Initial Impella cardiac output 2.8 to 3.0 L/min Post device placement MAPs increased from 58 to 75. Repeat PA sat at 61%, PA pressure 37/5 (18) Device sutured into place Summary: 1. Widely patent left main, LAD stents 2. Stable residual 50% ostial circumflex, OM1 disease 3. Cardiogenic shock 4. Elevated left-sided filling pressures. Normal right-sided filling pressures. 5. Successful Impella CP placement Recommendations: Transfer to tertiary center for continued hemodynamic support Further titrate inotropes Hemodynamics Rest Ao:: 106/55/77 Final Ao: 88/45/63 LV: 19 Recommendations Recommendations: Medical Therapy and/or Counseling Specimens Specimens: None Radiation Exposure (mGy) 1346 Contrast (mls) 50 Anesthesia None Procedural Complication(s) None None Disposition ICU I attest to the content of the Intraoperative Record and any orders documented therein. Any exceptions are noted below. [facility] Card Cath Procedure Codes Cardiac Catheterization Procedure 1: Cardiovascular Cath Procedures: 20170 Coronaries & LHC (+/-LV) & [facility] Therapeutic Services & Ancillary Proc Procedure 1: Cardiovascular Tx and Anc Procedures: 52991 Insertion of Percutaneous Ventricular Assist Device Procedure 2: Cardiovascular Tx and Anc Procedures: 38960 Ultrasonic Guidance Vascular Access Procedure 3: Cardiovascular Tx and Anc Procedures: 68194 Ultrasonic Guidance Vascular Access PG Care Time/CCT Total # of Minutes Spent Total Time Spent with Patient: Total time spent is greater than 50% in coordination of care (as documented) at patient's floor/unit and/or counseling patient:
[2021-09-21] MEDS ORDERED: STAT IV Infusion **Titration per Protocol STA ×2 (19:28→20:19)
[2021-09-21] MEDS ORDERED: DOBUTamine / D5W 500 MG/250 ML BAG IV SCH (19:30)
[2021-09-21 20:14] LABS: BUN Creatinine Ratio 12.8 (10-20); Creatinine Clr Calc Pharmacy 22.2 ml/min; Est GFR (African American) 19.3 ml/min; Est GFR (Non-African American) 16.7 ml/min; Phosphorus 6.9 mg/dl (2.5-4.9); Potassium 4.7 mmol/L (3.5-5.1)
[2021-09-21] MEDS ORDERED: EPINEPHrine/NSS 4 MG/254 ML BAG IV SCH (20:30)
[2021-09-21] MEDS ORDERED: SODIUM BICARB 8.4% INJ 50 MEQ/50 ML SYR IV STA (20:32)
--- NOTE | 2021-09-21 21:42 | Communication Note ---
Date of Service: September 21, 2021 After taking over care, it was requested that patient be transitioned off the Ahmet-Synephrine drip he had started on dobutamine. The dobutamine was started an d neowas stopped. Unfortunately, the patient became incredibly hypotensive. Orders were placed for epinephrine, calcium chloride, and 2 A of bicarb. Upon arrival of [facility], they were concerned with hemodynamic stability. Prior to this, the patient had been relatively hemodynamically stable on 2 pressors. Thankfully, the patient responded to epinephrine drip. There was conversation between myself and fellow at [place]. Eventually, it was agreed upon that the patient will be transported as previously planned. I did have conversation with family at bedside prior to transport at the request of dental provider. Family is agreeable the patient remains DNR in the event of cardiac decompensation in route by ground. I have personally spent 45 minutes of critical care time in the direct management of this patient. This is a life/limb threatening event. This includes time spent evaluating patient, direct bedside care, chart review, placing orders, interpretation of diagnostic studies, discussion with consultants, patient, and family members, as well as other required patient management activities. This time is exclusive of all separately billable procedures, and teaching time and separate from and in addition to any other critical care service time. Coding Level of Care Code Critical Care ayesha meeks'cori 30 min Time Spent (min) 45
[2021-09-22 00:33] LABS: iSTAT Arterial Blood Gas HCO3 20 meg/L (19-24); iSTAT Arterial Blood Gas pCO2 43 mmHg (35-46); iSTAT Arterial Blood Gas pH 7.27 (7.35-7.45); iSTAT Arterial Blood Gas pO2 < 32 mmHg (80-95); iSTAT Carbon Dioxide 21 mmol/L (24-31)
--- NOTE | 2021-09-22 07:52 | Discharge Summary ---
Date of Service September 22, 2021 Admission HPI Per Admitting Provider 75 yo male presented to the emergency department status postcardiac arrest with ROSC. History obtained via who is at bedside due to patient being unresponsive. Mr. Adler and his were visiting [place] from [facility] to take care of their grandchildren. Patient went to the basement to brush his teeth and upon returning upstairs the saw him in distress falling onto the couch. She immediately called 911 who had told her to start compressions and await for EMS arrival, which she did. PD did arrive after few minutes and AED advised 2 separate shocks.He received chest compressions per Vignesh machine upon EMS arrival.He was intubated in the field and received 2 A of epinephrine and bicarb pushes as well as amiodarone. ROSC was eventually achieved. Post ROSC EKG demonstrated STEMI. Heart alert was called and the patient was taken to the catheterization suite upon arrival. During catheterization, the patient developed several runs of V. tach requiring several episodes of defibrillation.Eventually, the patient again lost a pulse and required several minutes of CPR.Patient was successfully stented x2 and brought to the ICU for ongoing management. Upon arrival in the ICU, the patient remained on 2 pressors, amiodarone drip, and Integrilin.Additionally, significant hemoptysis noted from ET tube.Patient without purposeful movements.Not requiring sedation immediately. Per : Allergies NKA PMHx -afib diagnosed 1 year ago, on metoprolol 25mg BID as needed when palpitations are felt, not on anticoagulation -COVID in May 2021, did not require hospitilization -Vitamin D deficiency taking supplementation FHx -no known h/o heart disease -sister has DM2 Social History -previous smoker for 10 years, quit in 1974 -no acohol use -swims in summer for exercise -well balanced diet, has been cutting down on meats, eating more vegetables Principal Diagnosis Cardiac arrest, STEMI, multi organ system dysfunction Discharge Exam Constitutional: Vitals as above. HEENT: No scleral injection or discharge. Neck: Trachea midline. Lungs: Clear to auscultation bilaterally on ventilator Cardiac:Tachycardic. No murmurs. Abdomen: Bowel sounds present. Soft, nontender, and nondistended. MSK: No cyanosis. Skin: warm, dry. Neurologic: Pupils not reactive but equal. Sedated. Discharge Data Allergies Allergy/AdvReac Type Severity Reaction Status Date / Time No Known Allergies Allergy Unverified 09/20/21 13:26 Consultations 09/20/21 02:36 Consult Caustic Preparer Routine 09/20/21 02:49 Consult Internal Medicine Routine 09/20/21 04:44 Consult Cardiology Routine 09/21/21 16:57 Burn CD for patient Stat Procedures Performed Operation Date: 09/20/21 00:30 Actual Procedures p Cineradiography w/Routine Exam - Kendrick Hernandez MD, PhD s Cath, Left with Cors and Vent - Kendrick Hernandez MD, PhD p Aspiration/PCI w/LUDWIG for Stemi - Kendrick Hernandez MD, PhD s Cardiopulmonary Resuscitation - Kendrick Hernandez MD, PhD s Drug Eluting Stent each ADDTL Vessel - Kendrick Hernandez MD, PhD s POBA SGL Vessel - Kendrick Hernandez MD, PhD s Ultrasound Vascular Access - Kendrick Hernandez MD, PhD s Central Venous Cath Placement - Kendrick Hernandez MD, PhD Operation Date: 09/21/21 16:30 Actual Procedures p Impella Insertion LT Heart - Ambrocio Sims MD p Cath, Right and Left Heart - Ambrocio Sims MD s Cineradiography w/Routine Exam - Ambrocio Sims MD Ordered Studies Laboratory Results WBC 19.59 K/uL (4.8-10.8) H 09/21/21 04:49 RBC 4.15 M/uL (4.7-6.1) L 09/21/21 04:49 Hgb 12.3 g/dL (14.0-18.0) L 09/21/21 04:49 POC Hgb 11.9 g/dl (14.0-18.0) L 09/21/21 16:38 Hct 36.5 % (42-52) L 09/21/21 04:49 POC Hct 35 % (42-52) L 09/21/21 16:38 MCV 88.0 fL (80-100) 09/21/21 04:49 MCH 29.6 pg (25-34) 09/21/21 04:49 MCHC 33.7 g/dL (32-36) 09/21/21 04:49 RDW Std Deviation 42.3 fL (36.4-46.3) 09/21/21 04:49 RDW Coeff of Aaron 13.1 % (11.5-14.5) 09/21/21 04:49 Plt Count 289 K/uL (130-400) 09/21/21 04:49 MPV 10.3 fL (7.4-10.4) 09/21/21 04:49 Immature Gran % (Auto) 0.4 % 09/21/21 04:49 Neut % (Auto) 87.0 % 09/21/21 04:49 Lymph % (Auto) 3.9 % 09/21/21 04:49 Vermillion % (Auto) 8.6 % 09/21/21 04:49 Eos % (Auto) 0.0 % 09/21/21 04:49 Baso % (Auto) 0.1 % 09/21/21 04:49 Neut # (Auto) 17.06 K/uL (1.4-6.5) H 09/21/21 04:49 Lymph # (Auto) 0.76 K/uL (1.2-3.4) L 09/21/21 04:49 Vermillion # (Auto) 1.69 K/uL (0.11-0.59) H 09/21/21 04:49 Eos # (Auto) 0.00 K/uL (0-0.5) 09/21/21 04:49 Baso # (Auto) 0.01 K/uL (0-0.2) 09/21/21 04:49 Immature Gran # (Auto) 0.07 K/uL (0.00-0.02) H 09/21/21 04:49 Neutrophils % (Manual) 49.1 % 09/20/21 00:15 Lymphocytes % (Manual) 40.4 % 09/20/21 00:15 Monocytes % (Manual) 2.6 % 09/20/21 00:15 Eosinophils % (Manual) 2.6 % 09/20/21 00:15 Basophils % (Manual) 2.6 % 09/20/21 00:15 Metamyelocytes % (Man) 0.9 % 09/20/21 00:15 Myelocytes % (Man) 1.8 % 09/20/21 00:15 Neutrophils # (Manual) 5.45 K/uL (1.4-6.5) 09/20/21 00:15 Total Absolute Neuts 5.45 K/uL (1.4-6.5) 09/20/21 00:15 Lymphocytes # (Manual) 4.48 K/uL (1.2-3.4) H 09/20/21 00:15 Total Abs Lymphocytes 4.48 K/uL (1.2-3.4) H 09/20/21 00:15 Monocytes # (Manual) 0.29 K/uL (0.11-0.59) 09/20/21 00:15 Eosinophils # (Manual) 0.29 K/uL (0-0.5) 09/20/21 00:15 Basophils # (Manual) 0.29 K/uL (0-0.2) H 09/20/21 00:15 Metamyelocytes # (Man) 0.10 K/uL (0-0) H 09/20/21 00:15 Myelocytes # (Manual) 0.20 K/uL (0-0) H 09/20/21 00:15 RBC Morphology Unremarkable 09/20/21 00:15 PT 13.6 Seconds (9.0-12.0) H 09/21/21 04:49 INR 1.3 (0.9-1.1) H 09/21/21 04:49 APTT 26.8 Seconds (21.0-31.0) 09/20/21 22:35 PTT Ratio 1.0 09/20/21 22:35 Activ Coag Time Kaolin 255 SECONDS (94-140) H 09/20/21 01:22 Sample Site Art Line 09/21/21 16:38 POC pH 7.27 (7.35-7.45) L 09/21/21 17:46 POC pCO2 43 mmHg (35-46) 09/21/21 17:46 POC pO2 < 32 mmHg (80-95) L 09/21/21 17:46 POC HCO3 20 lester/L (19-24) 09/21/21 17:46 POC Total CO2 21 mmol/L (24-31) L 09/21/21 17:46 POC Base Excess -7.0 lester/L (-9-1.8) 09/21/21 17:46 ABG pH (Temp Correct) 7.222 (7.35-7.45) L 09/21/21 16:38 ABG pCO2 (Temp Corrct 42 mmHg (35-46) 09/21/21 16:38 POC ABG pO2 at Pt Temp 91 09/21/21 16:38 POC ABG O2 Sat 54.0 % (90-95) L 09/21/21 17:46 Jovan Test NA 09/21/21 16:38 O2 Delivery Device Ventilator 09/21/21 16:38 POC O2 Rate 24 09/21/21 16:38 Minute Ventilation 10.7 09/21/21 04:54 POC FiO2 60 % 09/21/21 16:38 Tidal Volume 535 09/21/21 16:38 PEEP 12 09/21/21 16:38 POC Sodium 131 mmol/L (135-144) L 09/21/21 16:38 Sodium 134 mmol/L (136-145) L 09/21/21 19:34 POC Potassium 5.6 mmol/L (3.3-5.0) H 09/21/21 16:38 Potassium 4.7 mmol/L (3.5-5.1) 09/21/21 19:34 Chloride 96 mmol/L (98-107) L 09/21/21 19:34 Carbon Dioxide 18 mmol/L (21-32) L 09/21/21 19:34 Anion Gap 20 (3-11) H 09/21/21 19:34 BUN 44 mg/dl (6-23) H 09/21/21 19:34 Creatinine 3.44 mg/dl (0.6-1.4) H 09/21/21 19:34 Est Cr Clr Drug Dosing 22.2 ml/min 09/21/21 19:34 Est GFR ( Amer) 19.3 ml/min 09/21/21 19:34 Est GFR (Non-Af Amer) 16.7 ml/min 09/21/21 19:34 BUN/Creatinine Ratio 12.8 (10-20) 09/21/21 19:34 Glucose 173 mg/dl (70-99(Fasting)) H 09/21/21 19:34 POC Glucose (other) 129 mg/dl (70-99) H 09/21/21 16:35 Lactate 10.9 mmol/L (0.4-2.0) H* 09/21/21 19:32 Calcium 7.0 mg/dl (8.5-10.1) L 09/21/21 19:34 Ionized Calcium 0.93 mmol/L (1.12-1.32) L 09/21/21 16:39 Phosphorus 6.9 mg/dl (2.5-4.9) H 09/21/21 19:34 Magnesium 2.0 mg/dl (1.7-2.4) 09/21/21 19:34 Total Bilirubin 0.6 mg/dl (0.2-1.0) 09/21/21 04:49 Direct Bilirubin 0.2 mg/dl (0-0.2) 09/21/21 04:49 AST 532 U/L (13-39) H 09/21/21 04:49 ALT 226 U/L (7-52) H 09/21/21 04:49 Alkaline Phosphatase 67 U/L (34-104) 09/21/21 04:49 Total Creatine Kinase 5384 U/L (30-223) H 09/21/21 11:40 Troponin I High Sens > 79173.0 pg/ml (0-20) H* 09/21/21 04:49 Total Protein 4.7 gm/dl (6.0-8.3) L 09/21/21 04:49 Albumin 3.0 gm/dl (3.4-5.0) L 09/21/21 04:49 Globulin 1.7 gm/dl (2.5-4.0) L 09/20/21 04:18 Albumin/Globulin Ratio 1.8 (0.9-2) 09/20/21 04:18 Nasal Screen MRSA (PCR) Negative (Negative) 09/20/21 Unknown SARS-CoV-2 (PCR) NEGATIVE (Negative) 09/20/21 03:00 Influenza Type A (PCR) Negative (Neg) 09/20/21 03:00 Influenza Type B (PCR) Negative (Neg) 09/20/21 03:00 RSV (RT-PCR) Negative (Neg) 09/20/21 03:00 Blood Type A Positive 09/20/21 04:18 Antibody Screen NEGATIVE 09/20/21 04:[address] 09/20/21 00:20 CT head/brain wo con CLINICAL HISTORY: 75 years-old Male with ams. Acute cardiac arrest TECHNIQUE: Multiple axial CT images of the head were obtained without contrast. A dose lowering technique was utilized adhering to the principles of ALARA. CT DOSE: 1382.10 mGy.cm COMPARISON: Fluoroscopic cardiac catheterization images of same day at 12:08 AM FINDINGS: No acute intracranial hemorrhage, midline shift, intracranial mass, hydrocephalu s, territorial ischemia or abnormal extra-axial collection. Evaluation for acute intraparenchymal hemorrhage is limited secondary to IV contrast. The study is mildly motion degraded. Mild white matter hypodensities suggest chronic microvascular ischemic disease. The calvarium is intact. The paranasal sinuses, mastoid air cells, and middle ear cavities are clear. IMPRESSION: No acute intracranial abnormality. ACT 112: Negative or not required by law. The above report was generated using voice recognition software. It may contain grammatical, syntax or spelling errors. Electronically signed by: Kai Edward M.D. 09/20/2021 7:33 AM Chest X-Ray 09/21/21 07:00 SINGLE VIEW CHEST CLINICAL HISTORY: Respiratory failure. FINDINGS: 2 AP, portable, upright chest radiographs are compared to study dated 09/20/2021. The examination is degraded by portable technique and patient rotation. Endotracheal and enteric tubes are unchanged in position. The cardiomediastinal silhouette is unremarkable. Multifocal airspace opacities are again seen throughout both lungs. This has modestly cleared as compared to yesterday. A small right pleural effusion is suspected. No pneumothorax is seen. The bony thorax is grossly intact. Retained IV contrast is noted within the renal parenchyma in the upper abdomen. A central venous catheter is present from a transabdominal approach. The tip projects over the right atrium. IMPRESSION: 1. Extensive bilateral airspace opacities have modestly cleared as compared to yesterday. The appearance suggests improving pulmonary edema. Correlate clinically for evidence of a superimposed infectious/inflammatory pneumonitis. 2. Suspect a small right pleural effusion. 3. Stable lines and tubes. 4. There is retained IV contrast within the renal cortex noted in the upper abdomen. This can be seen with acute renal injury and clinical correlation will be required. ACT 112: Negative or not required by law. Electronically signed by: Scott Carmen M.D. 09/21/2021 8:56 AM Brain MRI 09/21/21 09:35 MRI OF THE BRAIN WITHOUT CONTRAST CLINICAL HISTORY: cardiac arrest COMPARISON STUDY: Head CT September 20, 2021. TECHNIQUE: Utilizing a 1.5 Tameka magnet and dedicated coil, multiplanar, multiecho imaging of the brain was performed without IV contrast. FINDINGS: There is a small 4 mm focus of restricted diffusion within the left cerebellar hemisphere on axial image 7 of 25. Correlation with the ADC map is difficult given its small size however this appears hypointense. This favors a small acute to subacute infarct. A corresponding T2 hyperintense focus is noted on the axial T2-weighted sequence. There is no mass effect. No hemorrhage is present. Ventricular system is unremarkable. Basal cisterns are patent. There are no extra-axial collections. White matter T2 hyperintense foci favor small vessel disease. Flow-voids for the major intracranial vessels are present. No intracranial masses are identified on this unenhanced exam. Small amount of fluid within the bilateral mastoid air cells is present. Secretions within the nasopharynx are likely related to intubation. IMPRESSION: 1. 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 2. Otherwise, no acute intracranial findings. ACT 112: Negative or not required by law. Electronically signed by: Miguel Sheehan M.D. 09/21/2021 2:14 PM Hospital Course (1) Cardiac arrest: 75 yo male s/p cardiac arrest with ROSC who underwent drug-eluting stent placement x2 requiring ongoing hemodynamic management as well as ventilatory support. Per has PMHx afib not on anticoagulation. Was a dmitted to ICU for further management. Decision was made evening of 09/21 to transfer Mr. Adler to [place] following insertion of Impella during repeat catheterization. He will be taken via ground transport. #Cardiogenic shock -repeat cath with Impella insertion and swan-sonja catheter (09/21) prior to transfer -Prior to transfer IV levo/vasopressin drip d/c'd at request. Was started on dobutamine but patient then became hypotensive. Epi drip was started, patient responded appropriately. #Cardiac Arrest with V tach/V fib/IN -concerning down time initially in the field of 10-20 min w/ additional down time in [employer] of 10-15 min. -achieved ROSC prior to ED arrival, arrested again during catheterization requiring epi and defibrillation -CT head (09/20): no acute findings -MRI brain (09/21): small subacute infarct left cerebellar hemisphere -EEG (09/20): no epileptiform abnormalities -TTM return to normal -amiodarone gtt d/c'd (09/20) secondary to bradycardia #Acute resp failure sec to cardiac arrest/IN -intubated and sedated in ICU s/p PCI -some hemoptysis from endotracheal tube, improving #STEMI -found on EKG via EMS, taken to [employer] upon arrival -minimal risk factors for CAD per 's history -trops 340 --> remains >27k -EKG (09/20): ST elevations anterolateral leads -Cath (09/20): left main 70-90% stenosis, LAD ostial 99% stenosis; did arrest with several runs of Vtach during catheterization -s/p drug eluting stents x2 -postintervention echo (09/20): severely reduced LV function, mildly reduced RV function, mild akineses basal segments, akinesis anterolateral wall, mild dyskinesis entire apex -integrillin ggt d/c'd (09/20) #Multiorgan system dysfunction -lactate 10.9 -AST and ALT elevations suggest shock liver/failure -worsening Cr suggest acute renal failure -continue supportive management as per ICU #H/o afib - reports patient takes metoprolol 25mg bid as needed for palpitations, not previously on anticoagulation -EKG (09/20 at 0700): atrial fibrillation -EKG (09/21 at 1200): sinus with 1st degree AV block -holding metoprolol #PRATEEK -Cr 3.44, baseline unknown, worsening -likely prerenal in setting of cardiac arrest -jordan in place, strict I/Os -bicarb drip for acidosis - d/c'd -IVF d/c'd #Hyperglycemia -insulin drip per pharmacy #Hyperkalemia -K 4.7 -IVF+K d/c'd (2) ST elevation (STEMI) myocardial infarction: (3) Afib: Total Time Total Time Spent Total Time Spent (In Minutes): 30 Discharge Plan Discharge Items Patient Disposition: Transfer Acute Care Hospital Reason For Visit: CARDIAC ARREST Discharge Diagnosis: cargiogenic shock Activity: Per Instructions section Non-emergency contact: [employer] Call non-emergency contact if: you have any medication questions Follow-up/Referrals: PCP,NO [Primary Care Provider] - Diet: Nothing by Mouth Addtl Attending Provider Instructions: [place] [facility] [place] in the setting of cardiogenic shock; status post right heart catheterization, and Impella pump insertion. Pending Studies at Discharge: No Stand-Alone Forms: My [facility] Skilled Items Patient informed of condition?: Yes DNR: No Discharge Level of Care: Other Communicable Disease: No Discharge Prognosis: Stable Lines: Mid-Line and US Guided Peripheral IV Urinary Catheter: Yes Medications and DC Order Prescriptions: No Action Unobtainable RF: 0 Discharge Orders: Discharge Order (Routine); Ordered 09/21/21 Ordered By: Russell Mariscal Admission Data Admit Date/Time: 09/20/21 02:35 Attending Provider: Kendrick Hernandez Admit Provider: Kendrick Hernandez Primary Care Provider: PCP,NO Other Providers: Russell Mariscal ; Consuelo Doshi ; Angelique Garcia ; Lizy Vasques ; Gordon Schulz ; Amari Anguiano ; Raúl Mcdonald ; Kendrick Hernandez ; Julian Golden ; Shalom Girard Jr ; Aguila Kasper ; Grace Mckeon ; Melony Del Toro ; Ambrocio Sims ; Willian Karimi ; Adria Riojas ; Humaira Boucher ; Georgina Seals ; Sinan Campuzano ; Juan Rosenbaum ; Teddy Licea ; Junior Lomax Other Interventions: Discharge Summary Assessment (RN) Last Done: 09/21/21 22:49 Supervising Physician Co-Signing Physician Notes Resident Physician Supervision Note: I independently interviewed and examined the patient and verified the green history and physical, reviewed labs and image studies and agree with resident Dr. Lee findings and care plan. Resident Activity Tracking Resident Involvement: Resident Care Provided Care Provided: Adult Hospital Medicine
--- NOTE | 2021-09-22 13:32 | Electrocardiogram Report ---
Test Reason : Blood Pressure : / mmHG Vent. Rate : 112 BPM Atrial Rate : 112 BPM P-R Int : 000 ms QRS Dur : 164 ms QT Int : 338 ms P-R-T Axes : 000 034 073 degrees QTc Int : 461 ms Atrial fibrillation with rapid ventricular response Non-specific intra-ventricular conduction block Anteroseptal infarct , possibly acute Lateral injury pattern ACUTE MS / STEMI Abnormal ECG No previous ECGs available Confirmed by Julian Golden ([id number]) on 09/22/2021 1:31:52 PM Referred By: REFERRED SELF Confirmed By:Julian Golden
--- NOTE | 2021-09-22 13:36 | Electrocardiogram Report ---
Test Reason : Blood Pressure : / mmHG Vent. Rate : 123 BPM Atrial Rate : 123 BPM P-R Int : 192 ms QRS Dur : 142 ms QT Int : 292 ms P-R-T Axes : 054 079 060 degrees QTc Int : 418 ms Probable Atrial flutter with rapid ventricular response Right bundle branch block Anterolateral infarct (cited on or before 20-SEP-2021) Abnormal ECG When compared with ECG of 20-SEP-2021 00:09, (unconfirmed) Questionable change in initial forces of Anterolateral leads Serial changes of evolving Anterior infarct Confirmed by Julian Golden ([id number]) on 09/22/2021 1:35:53 PM Referred By: REFERRED SELF Confirmed By:Julian Golden
--- NOTE | 2021-09-22 13:49 | Electrocardiogram Report ---
Test Reason : Blood Pressure : / mmHG Vent. Rate : 092 BPM Atrial Rate : 096 BPM P-R Int : 000 ms QRS Dur : 110 ms QT Int : 424 ms P-R-T Axes : 000 076 098 degrees QTc Int : 524 ms Atrial fibrillation Anterolateral infarct (cited on or before 20-SEP-2021) Prolonged QT Abnormal ECG When compared with ECG of 20-SEP-2021 03:25, (unconfirmed) Right bundle branch block is no longer Present Confirmed by Julian Golden ([id number]) on 09/22/2021 1:49:33 PM Referred By: REFERRED SELF Confirmed By:Julian Golden
--- NOTE | 2021-09-22 13:56 | Electrocardiogram Report ---
Test Reason : Blood Pressure : / mmHG Vent. Rate : 085 BPM Atrial Rate : 085 BPM P-R Int : 210 ms QRS Dur : 102 ms QT Int : 430 ms P-R-T Axes : 066 064 081 degrees QTc Int : 511 ms Sinus rhythm with 1st degree A-V block Low voltage QRS Anteroseptal infarct (cited on or before 20-SEP-2021) Abnormal ECG When compared with ECG of 20-SEP-2021 08:34, (unconfirmed) Sinus rhythm has replaced Atrial fibrillation Confirmed by Julian Golden ([id number]) on 09/22/2021 1:56:04 PM Referred By: REFERRED SELF Confirmed By:Julian Golden
--- NOTE | 2021-09-22 15:18 | Electrocardiogram Report ---
Test Reason : Blood Pressure : / mmHG Vent. Rate : 075 BPM Atrial Rate : 075 BPM P-R Int : 224 ms QRS Dur : 098 ms QT Int : 410 ms P-R-T Axes : 069 059 083 degrees QTc Int : 457 ms Sinus rhythm with 1st degree A-V block Low voltage QRS Cannot rule out Anteroseptal infarct (cited on or before 20-SEP-2021) Abnormal ECG When compared with ECG of 20-SEP-2021 11:31, (unconfirmed) QT has shortened Confirmed by Julian Golden ([id number]) on 09/22/2021 3:18:41 PM Referred By: REFERRED SELF Confirmed By:Julian Golden
--- NOTE | 2021-09-22 15:24 | Electrocardiogram Report ---
Test Reason : Blood Pressure : / mmHG Vent. Rate : 068 BPM Atrial Rate : 068 BPM P-R Int : 222 ms QRS Dur : 090 ms QT Int : 396 ms P-R-T Axes : 067 057 081 degrees QTc Int : 421 ms Poor data quality, interpretation may be adversely affected Sinus rhythm with 1st degree A-V block with occasional Premature ventricular complexes Low voltage QRS Anteroseptal infarct (cited on or before 20-SEP-2021) Abnormal ECG When compared with ECG of 20-SEP-2021 17:33, (unconfirmed) Premature ventricular complexes are now Present Confirmed by Julian Golden ([id number]) on 09/22/2021 3:24:34 PM Referred By: REFERRED SELF Confirmed By:Julian Golden
--- NOTE | 2021-09-22 15:31 | Electrocardiogram Report ---
Test Reason : Blood Pressure : / mmHG Vent. Rate : 062 BPM Atrial Rate : 062 BPM P-R Int : 248 ms QRS Dur : 100 ms QT Int : 332 ms P-R-T Axes : 037 060 093 degrees QTc Int : 336 ms Poor data quality, interpretation may be adversely affected Sinus rhythm with 1st degree A-V block Low voltage QRS Anteroseptal infarct (cited on or before 20-SEP-2021) Abnormal ECG When compared with ECG of 20-SEP-2021 19:30, (unconfirmed) Premature ventricular complexes are no longer Present Serial changes of evolving Anteroseptal infarct Present Confirmed by Julian Golden ([id number]) on 09/22/2021 3:30:37 PM Referred By: REFERRED SELF Confirmed By:Julian Golden
--- NOTE | 2021-09-22 15:33 | Electrocardiogram Report ---
Test Reason : Blood Pressure : / mmHG Vent. Rate : 061 BPM Atrial Rate : 060 BPM P-R Int : 000 ms QRS Dur : 100 ms QT Int : 380 ms P-R-T Axes : 000 050 088 degrees QTc Int : 382 ms Sinus rhythm Low voltage QRS Anteroseptal infarct (cited on or before 20-SEP-2021) Abnormal ECG When compared with ECG of 21-SEP-2021 00:08, (unconfirmed) No significant change Confirmed by Julian Golden ([id number]) on 09/22/2021 3:33:19 PM Referred By: REFERRED SELF Confirmed By:Julian Golden
--- NOTE | 2021-09-22 23:46 | XCELERA ---
[id number]
--- NOTE | 2021-09-23 08:51 | Electrocardiogram Report ---
Test Reason : Blood Pressure : / mmHG Vent. Rate : 060 BPM Atrial Rate : 067 BPM P-R Int : 000 ms QRS Dur : 090 ms QT Int : 306 ms P-R-T Axes : 000 041 088 degrees QTc Int : 306 ms Sinus rhythm with 1st degree A-V block Low voltage QRS Possible Anterolateral infarct (cited on or before 20-SEP-2021) Abnormal ECG When compared with ECG of 21-SEP-2021 04:25, (unconfirmed) QT has shortened Confirmed by Julian Golden ([id number]) on 09/23/2021 8:50:55 AM Referred By: REFERRED SELF Confirmed By:Julian Golden
--- NOTE | 2021-09-23 10:14 | Electrocardiogram Report ---
Test Reason : Blood Pressure : / mmHG Vent. Rate : 083 BPM Atrial Rate : 083 BPM P-R Int : 228 ms QRS Dur : 076 ms QT Int : 292 ms P-R-T Axes : 071 001 100 degrees QTc Int : 343 ms Sinus rhythm with 1st degree A-V block Low voltage QRS Anterolateral infarct , age undetermined , possibly acute Abnormal ECG Confirmed by Julian Golden ([id number]) on 09/23/2021 10:13:30 AM Referred By: REFERRED SELF Confirmed By:Julian Golden
--- NOTE | 2021-09-23 10:21 | Electrocardiogram Report ---
Test Reason : Blood Pressure : / mmHG Vent. Rate : 093 BPM Atrial Rate : 093 BPM P-R Int : 200 ms QRS Dur : 090 ms QT Int : 310 ms P-R-T Axes : 067 038 087 degrees QTc Int : 385 ms Normal sinus rhythm Low voltage QRS Cannot rule out Anteroseptal infarct (cited on or before 20-SEP-2021) Lateral injury pattern ACUTE TX / STEMI Abnormal ECG When compared with ECG of 21-SEP-2021 15:43, (unconfirmed) Serial changes of evolving Anteroseptal infarct Present Confirmed by Julian Golden ([id number]) on 09/23/2021 10:21:07 AM Referred By: REFERRED SELF Confirmed By:Julian Golden
[2021-09-27 06:55] LABS: iSTAT Arterial Blood Gas HCO3 18 meg/L (19-24); iSTAT Arterial Blood Gas pCO2 36 mmHg (35-46); iSTAT Arterial Blood Gas pH 7.31 (7.35-7.45); iSTAT Arterial Blood Gas pO2 65 mmHg (80-95); iSTAT Carbon Dioxide 19 mmol/L (24-31)
[2021-09-27 06:55] LABS: iSTAT Arterial Blood Gas HCO3 19 meg/L (19-24); iSTAT Arterial Blood Gas pCO2 43 mmHg (35-46); iSTAT Arterial Blood Gas pH 7.24 (7.35-7.45); iSTAT Arterial Blood Gas pO2 37 mmHg (80-95); iSTAT Carbon Dioxide 20 mmol/L (24-31)
== END 2021-09-21 22:15 | disposition short-term general hospital (02) | DRG 215 ==
LOC: ED 00:01 → CC 00:43 → 1E 02:35
PROC: CLB.CPR (2021-09-20 00:30)